=== PATIENT | female | born 1940 | race Caucasian/White ===

== ENCOUNTER 2024-09-23 18:04 | Inpatient (IN) | payer OTHER, SELFPAY ==
[2024-09-23] VITALS (42 sets, daily range): BP systolic 66–124; BP diastolic 54–95; BMI 25.7
--- NOTE | 2024-09-23 13:00 | W.PN.CARDCBS ---
Today's Communication / Plan
-
Transfer from [facility] for C +/- RHC
Impression / Plan
-
This is a summary, see scanned cardiology consultation
PCP: Chantel Montelongo DO
CDY: Jimmy Meraz DO (new to pt)
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
Emergency room 09/19/2024 for evaluation after a mechanical fall while walking her dog. � LOC. She was down outside for approx. 3 hrs and upon arrival her Temp was 94. She was found to have a L intra-articular distal radius fracture and underwent
ORIF of the L radius on 09/20/2024. EKG on admission showed ST with PVC�s. She became hypotensive 09/21 with BP�s 88/42 and IVF bolus was given. Since then she has received 2L of LR�s and remains hypotensive with BP�s as low as 65/49. On 09/23 she
was noted to be in respiratory distress with c/o chest tightness. Her 02 sat was 79% and supplemental 02 was applied with improvement to 95%. Audible wheezing was noted and she c/p progressive SOB over the past several days. 20mg IV Lasix was given.
Metoprolol was held this am for low BP�s. Stat CXR showed b/l pulmonary congestion. Repeat EKG showed NSR with PAC�s and lateral ST depressions. Trp 609, 790 with CPK�s 461, 574. Echo this am with New wall motion abnormalities and an LVEF of 35% .
She was started on Heparin and this am is CP free
Impression:
NSTEMI
post ORIF L radius 09/20/24 after mechanical fall
Ischemic cardiomyopathy EF 35%
bilateral carotid artery stenosis
Right Subclavian steal syndrome
CVA
HTN
LLE BKA
PVD h/o stent
Plan:
Transferred today for [facility], admit IVU post
Chest pain last night with elevated troponin still rising 981, will check troponin on arrival
Echo with LV dysfunction and new WMA
Holding bp meds d/t hypotension, holding losartan, new to BB when able
continue atorvastatin 40mg daily
Progress Note - Talent Development Coordinator
Subjective
Date of Service: September 23, 2024
Denies cp, mild dyspnea
Home Medications
Medication Instructions Recorded Confirmed
aspirin 81 mg chewable tablet 81 mg PO DAILY #0 tabs 12/22/14 09/19/24
amlodipine 5 mg tablet 5 mg PO DAILY 09/19/24 09/19/24
ascorbic acid (vitamin C) 500 mg 500 mg PO DAILY 09/19/24 09/19/24
tablet (Vitamin C)
atorvastatin 40 mg tablet 40 mg PO DAILY 09/19/24 09/19/24
cholecalciferol (vitamin D3) 50 50 mcg PO DAILY 09/19/24 09/19/24
mcg (2,000 unit) tablet (Vitamin
D3)
cilostazol 100 mg tablet 100 mg PO BID 09/19/24 09/19/24
epinephrine 0.3 mg/0.3 mL 0.3 mg IM Q10M PRN Allergic 09/19/24 09/19/24
injection, auto-injector (EpiPen) Reaction
latanoprost 0.005 % eye drops 1 drp Left eye HS 09/19/24 09/19/24
losartan 25 mg tablet 25 mg PO DAILY 09/19/24 09/19/24
omega 8-ere-cep-fish oil 1,200 mg 1 cap PO DAILY 09/19/24 09/19/24
(144 mg-216 mg) capsule (Fish Oil)
timolol 0.5 % eye drops 1 drp Right eye BID 09/19/24 09/19/24
Objective
Labs:
Laboratory Last Values
WBC 11.5 10^3/uL (4.5-11.0) H 09/23/24 01:27
RBC 3.19 10^6/uL (4.20-5.40) L 09/23/24:
Hgb 9.8 gm/dL (11.3-15.0) L 09/23/24:27
Hct 30.5 % (34.0-44.0) L 09/23/24:
MCV 96 fl (82-98) 09/23/24:
RDW 14.5 % (11.0-15.0) 09/23/24 01:
Plt Count 203 10^3/uL (150-400) 09/23/24 01:
Neut % (Auto) 79 % (40-78) H 09/23/24:27
Lymph % (Auto) 14 % (21-49) L 09/23/24 01:27
Sullivan % (Auto) 6 % (0-10) 09/23/24:
Eos % (Auto) 1 % (0-4) 09/23/24 01:27
Baso % (Auto) 0 % (0-1) 09/23/24 01:
Neut # (Auto) 9.1 10^3/uL (2.2-8.0) H 09/23/24 01:27
Lymph # (Auto) 1.6 10^3/uL (1.0-4.0) 09/23/24 01:
Sullivan # (Auto) 0.7 10^3/uL (0.0-1.0) 09/23/24 01:27
Eos # (Auto) 0.1 10^3/uL (0.0-0.4) 09/23/24 01:
Baso # (Auto) 0.0 10^3/uL (0.0-0.1) 09/23/24:27
PT 15.6 SECONDS (11.5-14.4) H 09/23/24 05:00
INR 1.23 INR 09/23/24 05:00
APTT 182 SECONDS (23-37) H 09/23/24 05:00
Sodium 141 mmol/L (136-145) 09/23/24 01:27
Potassium 3.7 mmol/L (3.5-5.1) 09/23/24 01:27
Chloride 109 mmol/L (98-107) H 09/23/24 01:27
Carbon Dioxide 17.8 mmol/L (22.0-29.0) L 09/23/24:
Anion Gap 14 (7-16) 09/23/24 01:27
BUN 23 mg/dL (8-23) 09/23/24 01:27
Creatinine 1.01 mg/dL (0.50-0.90) H 09/23/24:
GFR Calculation 55 (Over 90) L 09/23/24 01:27
BUN/Creatinine Ratio 22.5 (7.0-25.0) 09/23/24 01:27
POC Glucometer 171 mg/dL (70 - 110) H 09/22/24 10:02
Fasting Glucose 122 mg/dL (70-110) H 09/23/24 01:27
Lactic Acid 1.2 mmol/L (0.5-2.0) 09/19/24 15:40
Calcium 8.3 mg/dL (8.8-10.2) L 09/23/24 01:27
Phosphorus 2.7 mg/dL (2.5-4.5) 09/22/24 06:26
Magnesium 1.9 mg/dL (1.6-2.4) 09/22/24 06:26
Total Creatine Kinase 759 U/L (20-180) H 09/23/24 11:19
CK-MB (CK-2) 101.0 ng/mL (0.0-5.0) H 09/23/24 11:19
CK-MB (CK-2) Rel Index 13.3 ng/100IU (0-2.8) H 09/23/24 11:19
Troponin T 5th Gen ng/L 790 ng/L (0-14) H* 09/23/24 05:00
NT-Pro-B Natriuret Pep 20355 pg/mL (0-300) H 09/23/24 09:59
25-OH Vitamin D Total 111.0 ng/mL (>30) 09/19/24 15:40
Ethyl Alcohol < 0.01 g/dL (<0.01) 09/19/24 15:40
Blood Type AB Positive 09/19/24 15:40
Antibody Screen Negative 09/19/24 15:40
Physical Exam
Physical Exam
Mild distress, AOx3, b/l ocular ecchymosis and abrasions to nose
S1, S2, irreg
bibasilar crackles, mildly labored, no wheeze
SNTND bsx4
No LE edema, LLL BKA
[2024-09-23 14:53] LABS: ACT-LR - POC 128 Seconds (116-155)
[2024-09-23 15:52] LABS: ACT-LR - POC 236 Seconds (116-155)
[2024-09-23 16:00] LABS: ACT-LR - POC 224 Seconds (116-155)
[2024-09-23 16:09] LABS: B.E. -13.3 mmol/L; O2 Saturation % 95.2 % (94-98); PCO2 47 mmHg (32-35); PO2 82 mmHg (83-108)
[2024-09-23 16:10] LABS: ACT-LR - POC 318 Seconds (116-155)
[2024-09-23 16:11] LABS: HCO3 15.3 mmol/L (21-28); pH 7.12 (7.35-7.45)
[2024-09-23 16:29] LABS: ACT-LR - POC 282 Seconds (116-155)
--- NOTE | 2024-09-23 16:39 | HPS.HSE ---
Family Physician
-
Family Physician: Chantel Roe
Chief Complaint
-
chest tightness
History of Present Illness
All of history from records, cardiology report, patient intubated sedated at time of evaluation.
84F former smoker LLE BKA CVA HTN asymptomatic carotid stenosis b/l, subclavian steal syndrome, vertebral artery aneurysm transferred from [facility] due to concern NSTEMI acute HFrEF. Originally patient was admitted to [place] following
mechanical fall resulting in Left Radial Fracture. S/P ORIF patient developed dyspnea chest tightness troponin elevation concerning for NSTEMI with associate ECHO noting reduced EF. Transferred here for cath, patient was noted to have severe CAD,
developed ventricular fibrillation and ultimately required intubation for airway protection. Stent was placed in left main in process. Patient subsequently admitted to CVICU on amio and nitro gtt with impella. NGT tube was complicated with
epistaxis so OG tube was placed instead.
Medical History
Past Medical History
Past Medical History: Reports Other (as above)
Past Surgical History: Reports Other (as above)
Social History
Tobacco: Former Smoker
Personal:
Family History
Family History: Unable to Obtain
Allergies / Home Medications
Allergies reflects when Allergies were last updated in [facility].
Home Medications with original date entered in [facility]
Allergy/Medication List:
Allergies
Allergy/AdvReac Type Severity Reaction Status Date / Time
bee venom protein (honey bee) Allergy Unknown Verified 09/23/24 14:06
Home Medications
amlodipine 5 mg tablet 5 mg PO DAILY 09/23/24
ascorbic acid (vitamin C) 500 mg capsule 500 mg PO DAILY 09/23/24
aspirin 81 mg tablet,delayed release 81 mg PO DAILY 09/23/24
atorvastatin 40 mg tablet 40 mg PO DAILY 09/23/24
cholecalciferol (vitamin D3) 50 mcg (2,000 unit) tablet 50 mcg PO DAILY 09/23/24
cilostazol 100 mg tablet 100 mg PO BID 09/23/24
epinephrine 0.3 mg/0.3 mL injection, auto-injector (EpiPen) 0.3 mg IM Q5-15M PRN allergic reaction 09/23/24
latanoprost (PF) 0.005 % eye drops in a dropperette 1 drp ophthalmic (eye) HS 09/23/24
losartan 25 mg tablet 25 mg PO DAILY 09/23/24
omega 0-zqi-zjd-fish oil 900 mg-1,400 mg capsule,delayed release 1 cap PO DAILY 09/23/24
timolol maleate (PF) 0.5 % eye drops in a dropperette 1 drp ophthalmic (eye) Q12H 09/23/24
Review of Systems
-
Unable to obtain full review of systems at this time due to: Patient Non-verbal
Physical Exam
Vital Signs
Vital Signs
Temp Pulse Resp BP Pulse Ox
97.3 F 102 20 112/69 92
09/23/24 14:17 09/23/24 14:17 09/23/24 14:17 09/23/24 14:17 09/23/24 14:17
Physical Exam
General: Other (as below)
Laboratory Results
-
Laboratory Results
APTT Cancelled 09/23/24 16:00
pH 7.12 (7.35-7.45) L* 09/23/24 Unknown
pCO2 47 mmHg (32-35) H 09/23/24 Unknown
pO2 82 mmHg (83-108) L 09/23/24 Unknown
HCO3 15.3 mmol/L (21-28) L* 09/23/24 Unknown
Troponin I 16.300 ng/ml H* 09/23/24 14:37
Impression/Plan
-
Physical Exam
General: sedated intubated
HEENT: Significant Bruising Ecchymosis around face like correlating with history fall, residual epistaxis noted, intubated, OG tube in place
Pulm: Clear to auscultation b/l
Cardio: sinus tachy
Abd/pelvis: soft bowel sounds present, right impella in place, left Femoral Line and Arterial line in place
Ext: s/p left BKA, cold right foot, very faint dorsal pedis pulse on palpation
Neuro: Sedated
IMPRESSION:
84F former smoker LLE BKA CVA HTN asymptomatic carotid stenosis b/l, subclavian steal syndrome, vertebral artery aneurysm transferred from [facility] due to concern NSTEMI acute HFrEF. Originally patient was admitted to [place] following
mechanical fall resulting in Left Radial Fracture. S/P ORIF patient developed dyspnea chest tightness troponin elevation concerning for NSTEMI with associate ECHO noting reduced EF. Transferred here for cath, patient was noted to have severe CAD,
developed ventricular fibrillation and ultimately required intubation for airway protection. Stent was placed in left main in process. Patient subsequently admitted to CVICU on amio and nitro gtt with impella. NGT tube was complicated with
epistaxis so OG tube was placed instead.
PLAN:
#NSTEMI
#Multivessal CAD
#Left Main Disease s/p stent placement
#Vfib
#HTN
#Shock suspect cardiogenic
#Acute HFrEF
CVICU admit
briefly treated with amio and nitro in lab head
Impella as per cardio
Levophed prn MAP>65
Trend Troponin to peak
asa plavix
cardio eval appreciated
daily weights I/O
Villavicencio for accurate I/O's
diuresis as necessary per cardio
#Ventilator dependent respiratory failure
Vent setting as per CVICU
follow up ABG
CXR
#Lactic acidosis
likely 2/2 shock as above
trend
#Anemia
monitor H&H
transfuse goal >=8 d/t cardiac hx
#Epistaxis
ENT eval requested
#Hx HTN
hold home antihypertensive d/t hypotension/shock as above
#Hyperglycemia
check A1c
low dose sliding scale for now
HX CVA
Lt BKA
asymptomatic carotid stenosis b/l
subclavian steal syndrome
Full Code
Total Critical Care Time__60___ minutes. I was immediately available to the patient and staff. I personally examined, reviewed labs, diagnostic images/reports, interpretations, treatment plans, discussed patient care with other providers and
Daughter Jayna GEIGER (patient is unable to make decisions at this time), entered orders as appropriate and documented the medical record.
[2024-09-23 16:40] LABS: % Basophils 0.2 % (0-2); % Eosinophils 0.4 % (0-6); % Immature Granulocytes 1.4 % (0-0.5); % Lymphocytes 27.3 % (20.5-51.1); % Monocytes 4.1 % (1.7-9.3); % Neutrophils 66.6 % (42.2-75.2); Absolute Eosinophils 0.1 10^3/uL (0-0.7); Absolute Immature Granulocytes 0.2 10^3/uL (0-0.05); Absolute Lymphocytes 3.2 10^3/uL (1.2-3.4); Absolute Monocytes 0.5 10^3/uL (0.1-0.6); Absolute Neutrophils 7.7 10^3/uL (1.4-6.5); Hematocrit 25.3 % (37.0-47.0); Hemoglobin 8.4 g/dL (12.0-16.0); Mean Corp Hgb Conc. 33.2 g/dL (33.0-37.0); Mean Corpuscular Hgb 32.1 pg (27.0-31.0); Mean Corpuscular Volume 96.6 fL (81.0-99.0); Mean Platelet Volume 10.9 fL (7.4-10.4); Nucleated Red Blood Cells % 0 %; Platelet Count 196 10^3/uL (130-400); Red Blood Cell Count 2.62 10^6/uL (4.20-5.40); Red Cell Dist. Width 14.6 % (11.5-14.5); White Blood Cell Count 11.6 10^3/uL (4.8-10.8)
[2024-09-23 16:49] LABS: INR 1.41; PT 17.5 Sec (11.4-14.6)
[2024-09-23 16:59] LABS: ACT-LR - POC 269 Seconds (116-155)
[2024-09-23 17:06] LABS: ALT (SGPT) 80 U/L (0-35); AST (SGOT) 259 U/L (14-36); Albumin 2.5 g/dl (3.5-5.0); Alkaline Phosphatase 68 U/L (38-126); Blood Urea Nitrogen 22 mg/dl (7-17); Calcium 8.7 mg/dl (8.4-10.2); Carbon Dioxide 24 mmol/L (22-30); Chloride 108 mmol/L (98-107); Estimated Creatinine Clearance 36 ml/min; Glucose 292 mg/dl (70-99); Potassium 3.1 mmol/L (3.5-5.1); Sodium 146 mmol/L (135-145); Total Protein 4.6 g/dl (6.3-8.2); eGFR 49.86
[2024-09-23 17:29] LABS: B.E. -0.9 mmol/L; HCO3 21.8 mmol/L (21-28); PCO2 30 mmHg (32-35); pH 7.47 (7.35-7.45)
[2024-09-23 17:32] LABS: PO2 31 mmHg (83-108)
--- NOTE | 2024-09-23 18:09 | ITS.CL.ANGIO ---
Hearing Impaired Itinerant Teacher - Angioplasty
Angioplasty
Procedure Report:
RIGHT AND LEFT HEART CATHETERIZATION
Date of Procedure: September 23, 2024
Primary Care Physician: Dr. Chantel Roe
Primary Amortization Clerk: Dr. iJmmy Meraz
Procedures performed:
1: Coronary angiography
2: Left ventricular hemodynamic assess
3: Right heart catheterization
4: Impella left ventricular assist device placement
5: Percutaneous coronary intervention of left main with placement of a 4.0 x 12 mm Husam drug-eluting stent postdilated high-pressure with a 4.5 mm diameter noncompliant balloon
INDICATION: The patient is a 84-year-old woman with a past medical history of severe peripheral arterial disease status post left BKA over 10 years ago, history of right subclavian artery steal syndrome, possible prior stroke, hypertension, and
hyperlipidemia who had a trip fall with left forearm fracture and facial bone injury. She developed chest pain associated with ischemic EKG changes last night and ruled in for non-ST elevation NV. Echocardiography showed LV ejection fraction of 35
to 40% with regional wall motion abnormality in the LAD territory. There was moderate mitral regurgitation by color-flow Doppler imaging noted. In light of her newly diagnosed cardiomyopathy with chest pain symptoms and rising cardiac enzymes she
was transferred to [facility] for urgent cardiac catheterization. She reports being chest pain-free since last night. She is requiring oxygen by nasal cannula at 4 L.
ACCESS: The patient was prepped and draped in usual sterile fashion. A 6 Nepalese sheath was placed in the right radial artery using the Seldinger over the wire technique. A 6 Nepalese sheath was then placed in the right common femoral vein using the
same technique and ultrasound guidance. I was unable to advance a wire from the subclavian artery into the aorta. This suggests occlusion. I then turned to right common femoral access. Initially a 4 Nepalese arterial sheath was placed using a
micropuncture kit and ultrasound guidance. Angiography was performed in several views which revealed the common femoral artery to be patent with a proximal SFA occlusion and a widely patent profunda artery.
HEMODYNAMIC FINDINGS (mmHg):
RA(a,v,m): 18, 14, 13
RV(s/d,EDP): 55/11, 20
PA(s/d/m): 50/31, 35
PCWP(a,v,m): 24, 28, 24
LV(s/d,EDP): 98/28, 44
Ao(s/d,m): 98/54, 69
Oxygen Saturations (mg/dl):
PA: 58% on 4 L of oxygen by nasal cannula
LV: 93% on 4 L of oxygen by nasal cannula
Cardiac Output/Index (l/min / l/min/m2):
Estimated Yolanda Method: 4.3 /2.4
VALVE HEMODYNAMICS:
No significant aortic or mitral valve stenosis.
ANGIOGRAPHIC FINDINGS:
Single-plane Left Ventriculography in OLIVAREZ Projection: Not done.
Coronary Angiography:
Dominance: Right
Left Main: Initial angiography was performed with a 4 Nepalese JL 3.5 diagnostic catheter. This resulted in intense pressure dampening with immediate ventricularization of pressure and ultimately dropping pressure into the low 50s. I performed 3
injections and disengaged after each injection in light of the tenuous hemodynamics. The left main appears to have a 80 to 90% true ostial stenosis. The remainder of the body of the vessel appears widely patent.
Left Anterior Descending: The left anterior descending artery is a medium caliber vessel that gives rise to 1 major diagonal branch. The LAD is moderately calcified but appears to be free of focal obstructive disease. There is SERGIO-3 flow in the
LAD and the major diagonal branch.
Left Circumflex: The left circumflex is a medium caliber nondominant system. There is a high OM which courses in a ramus distribution which appears patent with SERGIO-3 flow. After the takeoff of this vessel there is 1 major diagonal branch which
has moderate nonobstructive luminal irregularities with normal distal flow. Vascular overlapping calcification makes accurate angio a Grafix assessment difficult but I do not believe there is obstructive disease in this proximal circumflex system.
Right Coronary: The right coronary artery is a medium caliber dominant vessel that is widely patent and gives rise to a relatively small posterior descending artery and larger posterior left ventricular branch. These vessels have SERGIO-3 flow. Only
a single view IRANIAN projection of this vessel was obtained as the patient was becoming hemodynamically unstable.
Clinical course:
1: As I was urgently consulting CT surgery for critical left main disease and a hemodynamically compromised patient with a markedly elevated LVEDP, she became progressively hypotensive and unstable hemodynamically. Ultimately she required
epinephrine boluses and drip along with emergency intubation by the anesthesia staff and titration of pressors. In light of this hemodynamic instability, I felt the only way to save her life was to place a left ventricular support device.
Obviously with her peripheral arterial disease I was concerned about the suitability of her iliofemoral anatomy especially given her known SFA occlusion. A Impella CP was advanced into the left ventricle and put on maximum assist with good flow.
Despite this she was electrically unstable and ultimately had an episode of ventricular fibrillation requiring electrical defibrillation. She had brief CPR during a period of prolonged hypotension but that was ultimately successfully treated with
IV epinephrine bolus. amiodarone bolus and drip was given. Dr. River from CT surgery felt she was not a surgical candidate and at this point I chose to proceed with left main stenting.
Percutaneous coronary intervention of the left main: The patient was pretreated with aspirin. Unfractionated heparin was given. Single access through the Impella sheath was performed using a 7 Nepalese long introducer sheath. A 6 Nepalese JL 4
guiding catheter was used to engage the left main nonselectively. A Hi-Torque floppy wire was advanced across the ostial lesion and positioned in the distal LAD. Predilation was performed with a 2.5 x 12 mm noncompliant balloon at high pressure.
Next a 4.0 x 12 mm Husam stent was deployed at 14 nagi. The stent was postdilated with the ostium flared using a 4.5 mm diameter noncompliant balloon inflated to 16 nagi.
FINAL RESULT: 0% in-stent residual stenosis with an excellent angiographic result and SERGIO-3 flow in all distal vessels.
Clinical Course:
2. After successful left main stenting her blood pressure came up and ultimately all pressors were turned off. She was in fact hypertensive and IV nitroglycerin was given in an effort to facilitate diuresis as well as treat hypertension. Repeat
right heart cath numbers showed persistently elevated pulmonary capillary wedge pressure at 36 mmHg and ongoing arterial oxygen desaturation. Imaging through the 7 Nepalese sheath in the peel-away Impella sheath showed flow around the Impella itself
suggesting that there was not critical limb obstruction by the Impella. Repeat oxygen saturations were under 88% despite 100% FiO2 and increasing PEEP. In light of this, I elected to leave the Impella in place. I aggressively titrated up
nitroglycerin and continued critical care with attempts to correct pH using IV bicarbonate and vent changes. She was also exquisitely sensitive to sedation and ultimately ended up needing Levophed pressor support prior to leaving the lab. Attempts
to place an NG tube to deliver clopidogrel were unsuccessful and resulted in more nasopharyngeal bleeding. Ultimately a oropharyngeal tube was placed and 600 mg of clopidogrel was given through the tube. Echocardiography was performed on the table
in the [employer] which revealed no pericardial effusion and good RV function with persistent LV dysfunction.
Final HEMODYNAMIC FINDINGS (mmHg):
PA(s/d/m): 35/26,29
PCWP(a,v,m): 18,18,17
Ao(s/d,m): 93/68, 77
Fluoroscopy Time (min): 21.4
Radiation Dose (mGy): 1131
DAP (Gy.cm2): 96
Closure device: None. A TR band was applied for hemostasis at the right wrist. The femoral vein groin sheath was sutured in place and being utilized for central delivery of vasopressors. The Impella CP was sutured in place in the right common
femoral artery.
Complications: None.
ASSESSMENT:
1: Successful left main stenting with Impella CP hemodynamic support in the setting of cardiogenic shock, respiratory failure and cardiac arrest with ventricular fibrillation requiring defibrillation and pressor support.
2: Ongoing high oxygen demand. I suspect this is all pulmonary edema related to cardiogenic shock however there may be some component of aspiration. The RV looked okay on limited echo done in the [employer] so I do not suspect pulmonary embolism is
playing a role.
CONCLUSIONS and RECOMMENDATIONS:
1: Continue aggressive ICU supportive care. Hopefully with vent support and Impella support overnight we can start weaning the Impella in the morning. Continue DAPT with aspirin and Plavix.
Patrice Carty M.D.
Copy to: Dr. Chantel Roe
[2024-09-23] MEDS: VERSED 1 MG IV ×2 (18:15→20:40)
[2024-09-23] MEDS: SUBLIMAZE 70 MCG IV (18:16)
[2024-09-23] MEDS: SUBLIMAZE 100 IV (18:17)
--- NOTE | 2024-09-23 18:38 | PTCARENOTE ---
received pt from the [facility] into 2263, sinus tachycardia on tele w HR 120, bp 79-102/60's, + doppler DP on the right, impella right femoral P level auto. Right femoral site w dressing intact. TR band right radial cath site w 9ml air. PIV x2 right arm
flush easily. Pt awakens spontaneously, not following commands at this time, bilateral pupils equally reactive to light. Ecchymosis and multiple scabbed areas to face s/p pre hospital fall. Left BKA. Cast to left arm. OGT clamped s/p plavix
administration in CCL. Villavicencio placed on arrival to CV ICU w 350ml yellow urine. #8 ETT secured at 24cm at the right lip, VENT SETTINGS AC 20/500/+5/100%. CT [place] at bedside attempting arterial line.
DRIPS: Propofol 20mcg/kg/min
Fentanyl 50mcg/hr
Levophed 25mcg/min
K rider
[2024-09-23] MEDS: KCL 100 IV (19:12)
[2024-09-23] MEDS: SUBLIMAZE 50 MCG IV (19:42)
--- NOTE | 2024-09-23 19:56 | W.PN.ANESINT ---
Anesthesia Intubation Note
- Intubation Note
Intubation Note:
Diagnosis: CAD
Blade: MAC 4 glidescope
Tube Size: 8
Depth: 23
Side Taped: right
Drugs Used: propofol 100mg / zemuron 50mg after intubation
Grade View: I
EtCO2 Present: yes
Atraumatic: yes
Attempts: 1
Insertion Start and Stop Time:
SaO2 Pre:
SaO2 Post:
Glidescope Used: yes
Other Airway Adjustments:
Pre-Oxygenated: yes
Portable Chest X-Ray: yes
RSI: no
Suctioned: no
Bilateral Breath Sounds Confirmed: yes
Vent Settings:
Settings per _X__Attending Physician
--- NOTE | 2024-09-23 20:00 | PTCARENOTE ---
received pt from previous rn. pt intubated and sedated on propofol and fentanyl. ETT 8.0/24cm at lip Vent settings 500/20/100%/5. OG in place and clamped, 32 at the lip. sinus tachycardia per tele monitor, rojo catheter draining clear yellow urine,
R fem Impella CP at P-7, r femoral venous sheath, PIVx2 intact, R leg immobilizer placed, see worklist for complete nursing assessment, interventions, VS, I&Os.
[2024-09-23] MEDS: CALCIUM CHLORIDE 10% SYRINGE 500 MG IV (20:43)
--- NOTE | 2024-09-23 21:45 | PTCARENOTE ---
L fem A-line and L fem triple lumen placed by Dr. Carty at bedside w/ assistance by CTPA Weston Clements,
[2024-09-23 21:51] LABS: Glucose - Point of Care 193 mg/dl (70-99)
[2024-09-23 22:03] LABS: B.E. 3.4 mmol/L; HCO3 24.9 mmol/L (21-28); PCO2 26 mmHg (32-35); PO2 132 mmHg (83-108); pH 7.59 (7.35-7.45)
[2024-09-23 22:07] LABS: Hematocrit 26.3 % (37.0-47.0); Hemoglobin 8.7 g/dL (12.0-16.0); Mean Corp Hgb Conc. 33.1 g/dL (33.0-37.0); Mean Corpuscular Hgb 31.8 pg (27.0-31.0); Mean Platelet Volume 10.6 fL (7.4-10.4); Platelet Count 224 10^3/uL (130-400); Red Blood Cell Count 2.74 10^6/uL (4.20-5.40); Red Cell Dist. Width 14.6 % (11.5-14.5); White Blood Cell Count 16.9 10^3/uL (4.8-10.8)
[2024-09-23 22:16] LABS: INR 1.17; Lactic Acid 2.4 mmol/L (0.7-2.0); PT 15.2 Sec (11.4-14.6)
[2024-09-23 22:17] LABS: Fibrinogen 454 MG/DL (199-459)
[2024-09-23 22:18] LABS: APTT 70.9 Sec (23.4-35.0)
[2024-09-23 22:27] LABS: ALT (SGPT) 128 U/L (0-35); AST (SGOT) 363 U/L (14-36); Albumin 2.7 g/dl (3.5-5.0); Alkaline Phosphatase 93 U/L (38-126); Blood Urea Nitrogen 28 mg/dl (7-17); Carbon Dioxide 28 mmol/L (22-30); Chloride 108 mmol/L (98-107); D-Dimer 3.48 ug/mlFEU (0.00-0.50); Estimated Creatinine Clearance 33 ml/min; Glucose 220 mg/dl (70-99); Potassium 3.8 mmol/L (3.5-5.1); Sodium 142 mmol/L (135-145); Total Bilirubin 2.3 mg/dl (0.2-1.3); Total Protein 4.7 g/dl (6.3-8.2); eGFR 44.91
[2024-09-23 22:37] LABS: Magnesium 1.8 mg/dl (1.6-2.3)
[2024-09-23] MEDS: KCL 50 IV (23:01)
[2024-09-23 23:03] LABS: LDH 1140 U/L (120-246)
[2024-09-23] MEDS: SODIUM BICARBONATE 1025 MEQ IV (23:23)
[2024-09-23] MEDS: MAGNESIUM SULFATE 102 GRAMS IV (23:46)
[2024-09-23] MEDS: LEVOPHED 250 IV (23:58)
[2024-09-24] VITALS (52 sets, daily range): BP systolic 70–153; BP diastolic 48–91; BMI 26.9
[2024-09-24 00:12] LABS: ACT-LR - POC 129 Seconds (116-155)
--- NOTE | 2024-09-24 00:28 | PTCARENOTE ---
no acute changes, pt sedate and intubated on 16 of levo, 20 pro, fent 50, blood transfusion infusing, VSS, NSR per tele monitor
[2024-09-24 00:30] LABS: Glucose - Point of Care 196 mg/dl (70-99)
[2024-09-24 00:34] LABS: B.E. 3.3 mmol/L; HCO3 26.3 mmol/L (21-28); Ionized Calcium 1.26 mMOL/L (1.15-1.33); PCO2 33 mmHg (32-35); PO2 112 mmHg (83-108); pH 7.51 (7.35-7.45)
[2024-09-24] MEDS: CALCIUM GLUCONATE 100 IV (00:48)
[2024-09-24] MEDS: NOVOLOG FLEXPEN-LOW RESISTANCE 1 UNITS SC ×2 (01:00→17:14)
--- NOTE | 2024-09-24 01:04 | W.PN.CARD.SR ---
Sheath/IABP Sheath Removal
Sheath Removal
Right Arterial Radial:
Site appearance prior to sheath removal: Ecchymotic and Oozing
Sheath removed by:: Physician assistant paralegal (Antoine Clements)
Time of sheath removal: 01:05
Time hemostasis achieved: 01:25
Site appearance post sheath removal: Ecchymotic
Method of Hemostasis Post Sheath Removal: Manual Pressure
Dressing dry and intact?: Yes
Comments: Pressure dressing applied following manual pressure
[2024-09-24] MEDS: VERSED 0.5 MG IV ×14 (01:25→12:30)
[2024-09-24] MEDS: DIPRIVAN 100 IV ×3 (01:40→18:19)
[2024-09-24 04:12] LABS: B.E. 3.4 mmol/L; HCO3 25.7 mmol/L (21-28); PCO2 30 mmHg (32-35); PO2 82 mmHg (83-108); pH 7.54 (7.35-7.45)
[2024-09-24 04:33] LABS: Fibrinogen 495 MG/DL (199-459)
[2024-09-24 04:42] LABS: Lactic Acid 1.2 mmol/L (0.7-2.0)
[2024-09-24 04:44] LABS: Calcium 9.1 mg/dl (8.4-10.2); Carbon Dioxide 28 mmol/L (22-30); Chloride 109 mmol/L (98-107); Glucose 133 mg/dl (70-99); HDL Cholesterol 30 mg/dl; LDL Cholesterol, Calculated 35 mg/dl; Potassium 3.6 mmol/L (3.5-5.1); Sodium 143 mmol/L (135-145); Total Cholesterol 85 mg/dl (50-199); Triglyceride 100 mg/dl (10-149); Triglycerides 100 mg/dl (10-149); Very Low Density Lipoprotein 20 mg/dl (0-30)
--- NOTE | 2024-09-24 04:48 | PTCARENOTE ---
Addendum entered by Kristin Coyle RN 09/24/24 05:55:
fent 50*
Original Note:
routine labs and EKG obtained, VSS, NSR per tele monitor
levo 3
fentanyl 5
propofol 20
PRN versed given for agitation
[2024-09-24 04:50] LABS: % Basophils 0.1 % (0-2); % Eosinophils 0.1 % (0-6); % Immature Granulocytes 0.6 % (0-0.5); % Lymphocytes 12.6 % (20.5-51.1); % Monocytes 5.4 % (1.7-9.3); % Neutrophils 81.2 % (42.2-75.2); Absolute Immature Granulocytes 0.1 10^3/uL (0-0.05); Absolute Lymphocytes 1.5 10^3/uL (1.2-3.4); Absolute Monocytes 0.7 10^3/uL (0.1-0.6); Absolute Neutrophils 9.8 10^3/uL (1.4-6.5); Hematocrit 27.9 % (37.0-47.0); Hemoglobin 9.4 g/dL (12.0-16.0); Mean Corp Hgb Conc. 33.7 g/dL (33.0-37.0); Mean Corpuscular Hgb 31.8 pg (27.0-31.0); Mean Corpuscular Volume 94.3 fL (81.0-99.0); Mean Platelet Volume 10.6 fL (7.4-10.4); Nucleated Red Blood Cells % 0 %; Platelet Count 161 10^3/uL (130-400); Red Blood Cell Count 2.96 10^6/uL (4.20-5.40); Red Cell Dist. Width 14.9 % (11.5-14.5)
--- NOTE | 2024-09-24 04:50 | DOWNTIME ---
There was a [email or web address] Client Upholstery Covers Inspector Downtime on 09/24/2024 from 0100 to 09/24/2024 at 0350. Downtime documentation of patient's care, including medication administrations, has been reconciled in the electronic record per guidelines. Refer to the
patient's paper chart under the miscellaneous tab to see printed paper medication records and downtime forms.
[2024-09-24 04:54] LABS: Blood Urea Nitrogen 28 mg/dl (7-17); Estimated Creatinine Clearance 36 ml/min; eGFR 49.86
[2024-09-24] MEDS: KCL 100 IV (05:07)
[2024-09-24 05:29] LABS: LDH 1399 U/L (120-246)
[2024-09-24 05:38] LABS: Glucose - Point of Care 137 mg/dl (70-99)
[2024-09-24 05:43] LABS: B.E. 2.6 mmol/L; HCO3 25.9 mmol/L (21-28); Ionized Calcium 1.29 mMOL/L (1.15-1.33); O2 Saturation % 98.9 % (94-98); PCO2 34 mmHg (32-35); PO2 87 mmHg (83-108); pH 7.49 (7.35-7.45)
[2024-09-24] MEDS: NOVOLOG FLEXPEN-LOW RESISTANCE SC ×2 (05:47→12:24)
[2024-09-24 06:23] LABS: NT-proBNP 14500 pg/ml
--- NOTE | 2024-09-24 07:09 | CON.INTV ---
Consultation
Consultation Request
Date/Time Consultation Requested: 09/23/24
Date/Time Consultation Performed: 09/24/24
Performing Provider: Destini
Reason for Consultation: Post arrest
Medical History
-
History of Present Illness:
Patient is an 84-year-old female with previous history of CVA, hypertension, carotid stenosis, subclavian steal syndrome, vertebral artery aneurysm, former smoker transferred from [facility] following admission for mechanical fall resulting
in left radial fracture and facial contusions with epistaxis. Underwent ORIF and subsequently developed shortness of breath, chest tightness, troponin elevation was noted. She had been ruled in for NSTEMI and had comorbid acute heart failure with
reduced ejection fraction. Transferred to for cardiac catheterization, developed hypotension, and VF arrest with brief CPR and 1 shock given, required intubation and Impella placement in the Case P[employer] Se[employer]. She was deemed nonsurgical by CTS, stent
placed by Dr Carty. Patient is admitted to CVICU on low dose levophed and stabilized.
Past Medical History
Past Medical History: Other (see list below)
Social History
Tobacco: Former Smoker
Alcohol: None
Drug: None
Family History
Family History: Reviewed & Not Pertinent
Allergies / Home Medications
Allergies
Allergy/AdvReac Type Severity Reaction Status Date / Time
bee venom protein (honey bee) Allergy Unknown Verified 09/23/24 14:06
Home Medications
�Medication �Instructions �Recorded �Confirmed �Last Taken �Type
amlodipine 5 mg tablet 5 mg PO DAILY 09/23/24 09/23/24 Unknown History
ascorbic acid (vitamin C) 500 mg 500 mg PO DAILY 09/23/24 09/23/24 Unknown History
capsule
aspirin 81 mg tablet,delayed 81 mg PO DAILY 09/23/24 09/23/24 09/23/24 08:09 History
release
atorvastatin 40 mg tablet 40 mg PO DAILY 09/23/24 09/23/24 Unknown History
cholecalciferol (vitamin D3) 50 50 mcg PO DAILY 09/23/24 09/23/24 Unknown History
mcg (2,000 unit) tablet
cilostazol 100 mg tablet 100 mg PO BID 09/23/24 09/23/24 Unknown History
epinephrine 0.3 mg/0.3 mL 0.3 mg IM Q5-15M PRN allergic 09/23/24 09/23/24 Unknown History
injection, auto-injector (EpiPen) reaction
latanoprost (PF) 0.005 % eye drops 1 drp ophthalmic (eye) HS 09/23/24 09/23/24 Unknown History
in a dropperette
losartan 25 mg tablet 25 mg PO DAILY 09/23/24 09/23/24 Unknown History
omega 1-tho-ena-fish oil 900 1 cap PO DAILY 09/23/24 09/23/24 Unknown History
mg-1,400 mg capsule,delayed release
timolol maleate (PF) 0.5 % eye 1 drp ophthalmic (eye) Q12H 09/23/24 09/23/24 Unknown History
drops in a dropperette
Review of Systems
-
Unable to Obtain full review of systems at this time due to: Acuity and Patient Intubation
Vitals / Labs / Diagnostic Testing
Vital Signs
Temp Pulse Resp BP Pulse Ox
99.4 F 91 14 101/80 95
09/24/24 06:00 09/24/24 06:00 09/24/24 06:00 09/24/24 06:00 09/24/24 06:00
Lab Data
09/24/24 04:02
09/24/24 04:02
Laboratory Results
09/23/24 09/23/24 09/23/24
16:00 17:06 21:49
PT 17.5 H 15.2 H
INR 1.41 1.17
APTT Cancelled 70.9 H
pH 7.47 H 7.59 H
pCO2 30 L 26 L
pO2 31 L* 132 H
HCO3 21.8 24.9
O2 Delivery Level
09/23/24 09/24/24 09/24/24
Unknown 00:29 04:02
PT
INR
APTT
pH 7.12 L* 7.51 H 7.54 H
pCO2 47 H 33 30 L
pO2 82 L 112 H 82 L
HCO3 15.3 L* 26.3 25.7
O2 Delivery Level
09/24/24
05:36
PT
INR
APTT
pH 7.49 H
pCO2 34
pO2 87
HCO3 25.9
O2 Delivery Level
Diagnostic Testing:
Physical Exam
-
HEENT: Normocephalic, Anicteric and Other (ocular contusions, fractured nasal bone, skin lacerations over nose)
Cardiovascular: S1/S2, Regular Rhythm and Other (L BKA)
Respiratory: Rales, Non-Labored Respirations and Other (ETT in place)
GI: Soft, Non Distended, Non Tender and Other (OGT)
Neurology: No Motor Deficits, Other (sedated/intubated, nonverbal) and Other (cast over LUE, RLE dressings for impella)
Skin: Warm and Dry
General: Other (critically ill)
Assessment
-
Patient is an 84-year-old female with previous history of CVA, hypertension, carotid stenosis, subclavian steal syndrome, vertebral artery aneurysm, former smoker transferred from [facility] following admission for mechanical fall resulting
in left radial fracture and facial contusions with epistaxis. Underwent ORIF and subsequently developed shortness of breath, chest tightness, troponin elevation was noted. She had been ruled in for NSTEMI and had comorbid acute heart failure with
reduced ejection fraction. Transferred to for cardiac catheterization, developed hypotension, and VF arrest with brief CPR and 1 shock given, required intubation and Impella placement in the [employer]. She was deemed nonsurgical by CTS, stent
placed by Dr Carty. Patient is admitted to CVICU on low dose levophed and stabilized.
VF arrest s/p shock/CPR
Acute hypoxic respiratory failure s/p intubation
Acute NSTEMI s/p LHC and stent, non surgical candidate
L radial fracture s/p ORIF 09/20/24 after mechanical fall
Ischemic cardiomyopathy EF 35%
Acute HFrEF exacerbation
Anemia, unclear chronic/acute, no baseline
Metabolic acidosis
NELLI creat 1.1-1.2, unknown baseline
Hyperglycemia
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
Bilateral carotid artery stenosis
Right Subclavian steal syndrome
CVA
HTN
LLE BKA
PVD h/o stent
Former smoker, suspect COPD
Plan
Sedation: fent/prop, titrate upwards as needed
Pain/sedation: add on IV pushes, fent
RASS goals: -2 to -3 pending additional procedures
History of CVA in past
Assess MS post sedation holiday
Hemodynamically unstable, requiring pressors.
Requiring pressors: low dose levophed which likely can be titrated to off, likely for sedation
Cardiac history reviewed--extensive, as noted above s/p intervention
ECHO reviewed indicating rEF 30-35%, eventually diuresis when can tolerate
Cards following
Monitor on telemetry
Intubated for hypoxemia, slowly improving
Vent setting reviewed: AC 500/16/60/5+ can try increase PEEP to see if this helps maintain sat
Prior history of lung disease: former smoker, suspect COPD, but no prior PFTs for review
Supplemental O2 as indicated to maintain sats > 89%
CXR/CT reviewed indicating volume overload
ABG(s) reviewed, paO2 remains >80%
Epistaxis with possible nasal fracture, c/s to ENT
NPO, resume diet when able
Likely to need feeds through OGT if cannot extubate
Orthotic Assistant recommendations
Aspiration precautions, HOB > 30 degrees
Speech therapy eval can be considered if at elevated risk
GI prophylaxis if indicated for mechanical ventilation >48 hours, prior history of GERD, stress ulcer formation in the critically ill
NELLI present
Creat at baseline unknown, no history of renal disease
Void trials
Follow urine output, critical I/Os
Replete electrolytes as needed
No signs/symptoms suspicious for infectious etiology at this time
Observe off antibiotics for now
Follow fever trend, WBC count
Lactate elevated on admission, continue to trend until <2
CBC stable, no signs of bleeding/unknown Hb baseline
Some coag likely given fibrinogen, INR ok
DVT prophylaxis as assessed based on risk, including mechanical SCDs
Can transfuse if indicated for Hb <7, plt < 10
INR WNL
No prior h/o diabetes or thyroid disease
Monitor accuchecks PRN/SS coverage if needed
HbA1c pending
We will follow
Diagnostic Data
Chest X-Ray: 09/24/24- Endotracheal tube with tip in trachea above the víctor. No pneumothorax. Left hemidiaphragm is obscured suggesting left lower lobe subsegmental atelectasis and/or small left pleural effusion, unchanged. Pulmonary vascularity
at least top normal.
CT Scan:
Echo: 09/23/24- 1. Limited echocardiogram to assess LV function 2. Left ventricle: Moderately reduced systolic function with a visually estimated ejection fraction of 30-35%. There is akinesis of the anterior and inferoseptum to apex
anteroseptum and inferoseptum from the midportion to the apex 3. No pericardial effusion
LHC 09/23/24- HEMODYNAMIC FINDINGS (mmHg):
RA(a,v,m): 18, 14, 13
RV(s/d,EDP): 55/11, 20
PA(s/d/m): 50/31, 35
PCWP(a,v,m): 24, 28, 24
LV(s/d,EDP): 98/28, 44
Ao(s/d,m): 98/54, 69
Oxygen Saturations (mg/dl):
PA: 58% on 4 L of oxygen by nasal cannula
LV: 93% on 4 L of oxygen by nasal cannula
Cardiac Output/Index (l/min / l/min/m2):
Estimated Yolanda Method: 4.3 /2.4
1: Successful left main stenting with Impella CP hemodynamic support in the setting of cardiogenic shock, respiratory failure and cardiac arrest with ventricular fibrillation requiring defibrillation and pressor support.
PFT's:
Reports and relevant images were personally reviewed.
Critical Care time 75 mins -- The patient is admitted for acute critical illness for the treatment of vital organ failure and/or prevention of further life-threatening conditions. Total care includes time spent in review of history, physical exam,
medications, hemodynamic/ventilator parameters, laboratory data, imaging and discussion with house staff, pharmacy, respiratory therapy, sales engineer, and nursing. Discussed extensively overnight with care team.
--- NOTE | 2024-09-24 07:10 | W.PN.HOSP.TC ---
Today's Communication/Plan
-
wean pressor as tolerated
sedation vent as per ICU
monitor H&H, transfuse if Hgb<8
replete electrolytes goal Mg 2.0 K 4.0
cont DAPT as per Cardio
Assessment / Plan
Assessment / Plan
Physical Exam
General: sedated intubated
HEENT: Significant Bruising Ecchymosis around face like correlating with history fall, residual epistaxis noted, intubated, OG tube in place
Pulm: Clear to auscultation b/l
Cardio: sinus tachy
Abd/pelvis: soft bowel sounds present, right impella in place, left Femoral Line and Arterial line in place
Ext: s/p left BKA, cold right foot, very faint dorsal pedis pulse on palpation
Neuro: Sedated
IMPRESSION:
84F former smoker LLE BKA CVA HTN asymptomatic carotid stenosis b/l, subclavian steal syndrome, vertebral artery aneurysm transferred from [facility] due to concern NSTEMI acute HFrEF. Originally patient was admitted to [place] following
mechanical fall resulting in Left Radial Fracture. S/P ORIF patient developed dyspnea chest tightness troponin elevation concerning for NSTEMI with associate ECHO noting reduced EF. Transferred here for cath, patient was noted to have severe CAD,
developed ventricular fibrillation and ultimately required intubation for airway protection. Stent was placed in left main in process. Patient subsequently admitted to CVICU on amio and nitro gtt with impella. NGT tube was complicated with
epistaxis so OG tube was placed instead.
PLAN:
#NSTEMI
#Multivessal CAD
#Left Main Disease s/p stent placement
#Vfib
#HTN
#Shock suspect cardiogenic
#Acute HFrEF
CVICU admit
briefly treated with amio and nitro in laborer concrete paving
Impella as per cardio
Levophed prn MAP>65
Troponin trended to peak 35.400
asa plavix
cardio eval appreciated
daily weights I/O
Villavicencio for accurate I/O's
diuresis as necessary per cardio
Monitor and replete electrolytes goal Mg 2.0 Potassium 4.0
#Ventilator dependent respiratory failure
Vent setting as per CVICU
follow up ABG
CXR appreciated possible left lower lobe subsegmental atelectasis and/or small left pleural
Steel Erecting Pusher eval appreciated
#Lactic acidosis
likely 2/2 shock as above
resolved
#Anemia
monitor H&H
transfuse goal >=8 d/t cardiac hx
#Epistaxis
ENT eval appreciated
persistent bleeding believed to be due to posterior epistaxis as a result of traumatic NG tube placement.
Right nasal packing applied, tentatively planned for removal in about 3 days.
Empiric protonix gtt for possible GI bleed discontinued, switched to GI ppx IV 40 mg daily
#Mild Leukocytosis
Possibly Stress Reactive
History concerning for aspiration
will cont to monitor
Blood cultures and Empiric Unasyn if patient develops significant fever
#Hx HTN
hold home antihypertensive d/t hypotension/shock as above
#Hyperglycemia
A1c 5.5
cont low dose sliding scale for now, eventually discontinue when sugars consistently well controlled
#Mild NELLI vs CKD 3
monitor renal function
possibly baseline Cr 1.2-1.1
avoid nephrotoxic agents as possible
Significant hx PAD, vascular dz
HX CVA
Lt BKA
asymptomatic carotid stenosis b/l
subclavian steal syndrome
dvt ppx SCD, Heparin in association with Impella use
gi ppx Protonix
Full Code
Total Critical Care Time__50___ minutes. I was immediately available to the patient and staff. I personally examined, reviewed labs, diagnostic images/reports, interpretations, treatment plans, discussed patient care with other providers and
entered orders as appropriate and documented the medical record.
Anticipated Discharge: > 48 hours
Subjective/Interval History
-
Date of Service: September 24, 2024
sedated intubated. Nonetheless responsive to verbal and physical stimuli. Appears restless.
Objective Data
-
Labs:
Laboratory Results
09/23/24 09/24/24 09/24/24
21:49 00:29 04:02
WBC 16.9 H 12.0 H
Hgb 8.7 L 9.4 L
Hct 26.3 L 27.9 L
Plt Count 224 161 D
PT 15.2 H
INR 1.17
APTT 70.9 H
HCO3 24.9 26.3 25.7
Sodium 142 143
Potassium 3.8 3.6
Chloride 108 H 109 H
Carbon Dioxide 28 28
BUN 28 H 28 H
Creatinine 1.2 H 1.1 H
Glucose 220 H 133 H
Calcium 9.0 9.1
Total Bilirubin 2.3 H
AST 363 H
ALT 128 H
Alkaline Phosphatase 93
09/24/24
05:36
WBC
Hgb
Hct
Plt Count
PT
INR
APTT
HCO3 25.9
Sodium
Potassium
Chloride
Carbon Dioxide
BUN
Creatinine
Glucose
Calcium
Total Bilirubin
AST
ALT
Alkaline Phosphatase
Vital Signs:
Vital Signs
Temp Pulse Resp BP Pulse Ox
99.4 F 91 14 101/80 95
09/24/24 06:00 09/24/24 06:00 09/24/24 06:00 09/24/24 06:00 09/24/24 06:00
I&O
09/23/24 09/24/24 09/25/24
06:59 06:59 06:59
Intake Total 1587.7 / 1587.7
Output Total 770 / 770
Balance 817.7 / 817.7
--- NOTE | 2024-09-24 07:30 | PTCARENOTE ---
Dr. Carty at bedside, orders to decrease impella support from P6 to P3. Completed.
[2024-09-24] MEDS: MIRALAX TUBE (07:35)
--- NOTE | 2024-09-24 07:47 | W.PN.UPDATE ---
Update Note
Progress Note Update
Cardiology Update Note:
-Pt did well overnight. Received 1u PRBC. Impella intact @ P7
-Weaned Levophed from 20 to 3-6 mcg/min overnight. Remains on Fentanyl @ 50 and Propofol @ 20-30
-Weaned FIO2 from 100% to 60%. Required frequent suctioning of blood primarily from oral suctioning, not much from ET-tube (mucous plug suctioned)
-Wean off of sedation and Impella
-Hopefully extubate soon
[2024-09-24] MEDS: LEVOPHED 250 IV ×2 (07:54→15:52)
--- NOTE | 2024-09-24 08:00 | PTCARENOTE ---
Assumed care of patient. Walking rounds completed with previous RN. Pt assessed while she was lying in bed. Pt intubated and sedated on propofol and fentanyl gtts. PERRLA 3mm brisk. RAAS -1 to -2. With verbal stimulation, pt opens her eyes, follows
commands to shake head yes & no. Pt became agitated, attempting to sit up, sedation resumed. Noted that all 4 extremities were moving. SR with PACs on tele with rates 80s-90s. BP supported with levophed. Impella at P3 support. Right radial pulse
weakly palpable, confirmed with doppler. Left brachial pulses weakly palpable. Right DP not audible by doppler, Dr. Carty aware and stated that there was no DP pulse prior to cath yesterday. Right PT pulse present with doppler. Left popliteal pulse
present via doppler. No edema noted. Heart tones audible. Intubated with 8.0 ETT 24cm at the lip. POX 95%. Bilateral anterior lungs clear. Bloody oral secretions noted. Mouth care completed. OGT in place at 36cm, air bolus was not auscultated when
checking placement. Dr. Burkett notified. Abdomen soft, round, nontender. Hypoactive BS. Villavicencio catheter intact draining inadequate amounts of yellow urine. Bruising noted to face from outpatient fall. Right groin venous sheath with Impella at
91cm. Left femoral arterial line intact with appropriate waveform-flushed, leveled, & zeroed. Left femoral 3x CVC intact. Right wrist 20g PIV and Right AC 20g PIV intact. See MAR for medication administration. See worklist for complete nursing
assessment. Plan of care reviewed with family.
--- NOTE | 2024-09-24 09:02 | W.PN.CARDCBS ---
Today's Communication / Plan
-
Continue supportive care
Continue Impella
Stop amiodarone and bicarbonate
Continue Levophed, heparin
Consider weaning trial tomorrow if hemodynamically stable
Daughters updated
Impression / Plan
-
This is a summary, see scanned cardiology consultation
PCP: Chantel Montelongo DO
CDY: Jimmy Meraz DO (new to pt)
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
Emergency room 09/19/2024 for evaluation after a mechanical fall while walking her dog. � LOC. She was down outside for approx. 3 hrs and upon arrival her Temp was 94. She was found to have a L intra-articular distal radius fracture and underwent
ORIF of the L radius on 09/20/2024. EKG on admission showed ST with PVC�s. She became hypotensive 09/21 with BP�s 88/42 and IVF bolus was given. Since then she has received 2L of LR�s and remains hypotensive with BP�s as low as 65/49. On 09/23 she
was noted to be in respiratory distress with c/o chest tightness. Her 02 sat was 79% and supplemental 02 was applied with improvement to 95%. Audible wheezing was noted and she c/p progressive SOB over the past several days. 20mg IV Lasix was given.
Metoprolol was held this am for low BP�s. Stat CXR showed b/l pulmonary congestion. Repeat EKG showed NSR with PAC�s and lateral ST depressions. Trp 609, 790 with CPK�s 461, 574. Echo this am with New wall motion abnormalities and an LVEF of 35% .
She was started on Heparin and this am is CP free
Impression:
Cardiogenic shock with VF arrest and critical ostial left main disease status post left main PCI
post ORIF L radius 09/20/24 after mechanical fall
Ischemic cardiomyopathy EF 35%
bilateral carotid artery stenosis
Right Subclavian steal syndrome
CVA
HTN
LLE BKA
PVD h/o stent
Plan:
Remarkably she survived a left main intervention and is now metastable with Impella support.
Now ventilated, sedated, urine output has been adequate though recently dropped, suspect Impella may need to be repositioned.
Appreciate input of hospitalist and rotogravure press operator.
Likely will leave Impella in place today. Dr. Carty to assess.
Continue pressors for now, wean as tolerated.
We will stop amiodarone and bicarbonate
Daughters updated.
Progress Note - Exhibit Designer
Subjective
Date of Service: September 24, 2024:
84-year-old woman admitted with cardiogenic shock related to ostial left main disease, VF arrest in [employer]ator and successful left main stenting, no other high-grade obstructive CAD, now with Impella, epistaxis with NG tube placement.
PMH: PAD, left lower extremity BKA, history of prior peripheral arterial stents, prior stroke, hypertension, bilateral carotid disease, subclavian steal, mechanical fall with loss of consciousness, ORIF for left radial fracture on September 20
Allergies: None to meds
Outpatient cardiac meds: Amlodipine 5, aspirin 81 mg a day, atorvastatin 40 mg a day, cilostazol, losartan 25 a day, timolol current meds: Plavix 75 mg a day, aspirin 81 mg a day, atorvastatin 40 mg a day, IV fentanyl, insulin, norepinephrine,
propofol, pantoprazole
85/57, 113/59, weight is 75.7 kg, urine output 850 mL, facial contusions and lacerations, ventilated, sedated, appears comfortable, lungs are clear, regular rate and rhythm without obvious murmurs, JVD okay, abdomen benign, left BKA, right leg
pulses are diminished but leg does not seem ischemic, Impella in place, neuro, sedated, no edema
White count 12, hemoglobin 9.4, platelets 161, troponin 35.4, was 16.3,
proBNP 14,500, LDL 35, BUN and creatinine 28 and 1.1 as of 4 AM
Chest x-ray mildly hazy, cardiomegaly, Impella in place,
ECG sinus rhythm, nonspecific ST and T changes
Objective
Labs:
Labs
Hgb 9.4 g/dL (12.0-16.0) L 09/24/24 04:02
Hct 27.9 % (37.0-47.0) L 09/24/24 04:02
Plt Count 161 10^3/uL (130-400) D 09/24/24 04:02
PT 15.2 Sec (11.4-14.6) H 09/23/24 21:49
INR 1.17 09/23/24 21:49
APTT 70.9 Sec (23.4-35.0) H 09/23/24 21:49
Sodium 143 mmol/L (135-145) 09/24/24 04:02
Potassium 3.6 mmol/L (3.5-5.1) 09/24/24 04:02
BUN 28 mg/dl (7-17) H 09/24/24 04:02
Creatinine 1.1 mg/dL (0.6-1.0) H 09/24/24 04:02
Glucose 133 mg/dl (70-99) H 09/24/24 04:02
Troponins
09/23/24 09/24/24
14:37 05:36
Troponin I 16.300 H* 35.400 H*
Vital Signs and I&O:
Vital Signs
Temp Pulse Resp BP Pulse Ox
37.7 C 87 14 85/57 95
09/24/24 08:00 09/24/24 08:15 09/24/24 08:15 09/24/24 08:00 09/24/24 08:15
Vital Signs
Temp Pulse Resp BP Pulse Ox
37.7 C 87 14 85/57 95
09/24/24 08:00 09/24/24 08:15 09/24/24 08:15 09/24/24 08:00 09/24/24 08:15
Intake & Output
09/22/24 09/23/24 09/24/24 09/25/24
07:59 07:59 07:59 07:59
Intake Total 1763.8 / 1857.5 93.7 / 93.7
Output Total 790 / 805
Balance 973.8 / 1052.5 78.7 / 78.7
Physical Exam
Physical Exam
See above
[2024-09-24 09:30] LABS: Glycohemoglobin (HgbA1c) 5.5 % (4.0-5.6)
[2024-09-24] MEDS: PROTONIX 100 IV (09:38)
--- NOTE | 2024-09-24 09:45 | PTCARENOTE ---
0845: Impella alarming with positioning alarms, TRISTAN Francis notified. Orders for bedside echo obtained. 0945: Dr. Carty, Dr. TRISTAN Toledo, Impella rep, career and technology education teacher and RN at bedside. Impella repositioned by Dr. Carty to 90cm. Impella dressing
changed.
--- NOTE | 2024-09-24 09:55 | PTCARENOTE ---
Dr. Carty and Dr. TRISTAN Toledo at bedside to re-eval patient. Orders to decrease impella support from P3 to P2. Completed. Informed Dr. Carty of increasing pressor support and decreasing urine output since decreasing Impella to P3 a 0730. Orders for
P2 remain the same. Dr. Carty to re-eval patient ~2 hours for possible impella removal.
--- NOTE | 2024-09-24 10:15 | PTCARENOTE ---
Addendum entered by Darling Natarajan RN 09/24/24 13:02:
Correction: 61cm.
Original Note:
OGT advanced to 65cm. CXR obtained to confirm placement. Awaiting read.
[2024-09-24] MEDS: SUBLIMAZE 100 IV (11:56)
--- NOTE | 2024-09-24 12:00 | PTCARENOTE ---
Pt reassessed. SR with PACs on tele with rates in the 90s. BP supported with levophed. Impella @P2. UO less than 30ml/hr, Dr. Carty notified. POX 94% on AC 40%, 14 500 5. B/l groin sites stable. Neuro status unchanged from prior assessment. Per .
Green Destini, OGT pulled back to 57cm. Asa, lipitor, and Plavix administered. ENT at bedside to complete right nare packing. pt tolerated. Pt's family at bedside.
--- NOTE | 2024-09-24 12:02 | CM ---
Reviewed chart. Met with daughter and son to review discharge plans. Daughter states prior to admission Mrs. Johnson was residing alone in a bi-level home with 12 steps to enter. Prior to admission she was independent with ambulation during the
uma. At Night she uses walker with her night leg to go to the bathroom. She was independent with adl's. She has a walker at home. She was in [facility] in the past for SNF/Rehab. after her leg amputation. She has a prescription plan and uses
[facility]. Will need to see her current functional level to see if she will have any skilled care needs. Her daughter resides in [place], [place] and depending on her functional status she may her take her mother to stay with her for
awhile. Daughter has a one level home. Medical work-up in progress. The discharge plan is to go to her daughter's home verses SNF/Rehab. depending on her functional status when medically stable.
[2024-09-24] MEDS: NSS 500 IV (12:06)
--- NOTE | 2024-09-24 12:18 | W.PN.UPDATE ---
Update Note
Progress Note Update
Progress overnight with dropping O2 needs.
Lactate cleared.
Hb ok post 1 unit RBCs.
Still requiring pressors/sedation.
Tolerating Impella at P2 for several hours. Will remove in lab head.
Will also do RHC to objectively assess filling pressures/hemos.
[2024-09-24 12:21] LABS: B.E. 0.6 mmol/L; O2 Saturation % 98.7 % (94-98); PCO2 33 mmHg (32-35); PO2 84 mmHg (83-108); pH 7.47 (7.35-7.45)
[2024-09-24 12:22] LABS: Glucose - Point of Care 154 mg/dl (70-99)
[2024-09-24 12:22] LABS: Hematocrit 26.7 % (37.0-47.0); Hemoglobin 8.6 g/dL (12.0-16.0); Mean Corp Hgb Conc. 32.2 g/dL (33.0-37.0); Mean Corpuscular Hgb 30.8 pg (27.0-31.0); Mean Corpuscular Volume 95.7 fL (81.0-99.0); Mean Platelet Volume 10.4 fL (7.4-10.4); Platelet Count 157 10^3/uL (130-400); Red Blood Cell Count 2.79 10^6/uL (4.20-5.40); Red Cell Dist. Width 15.7 % (11.5-14.5); White Blood Cell Count 13.2 10^3/uL (4.8-10.8)
[2024-09-24] MEDS: PLAVIX PO (12:27)
[2024-09-24] MEDS: PLAVIX 300 MG TUBE (12:30)
[2024-09-24] MEDS: LIPITOR 40 MG PO (12:30)
[2024-09-24] MEDS: LOW STRENGTH ASPIRIN 81 MG PO (12:30)
--- NOTE | 2024-09-24 12:33 | CON.MD ---
Consultation - Medical
-
Pt seen and consult dictated.
Pt seen for persistent bleeding believed to be due to posterior epistaxis as a result of traumatic NG tube placement.
Right nasal packing applied, will tentatively plan for removal in about 3 days.
--- NOTE | 2024-09-24 12:40 | PTCARENOTE ---
Pt transported to labeling specialist for impella removal.
[2024-09-24 13:23] LABS: Blood Urea Nitrogen 28 mg/dl (7-17); Calcium 8.3 mg/dl (8.4-10.2); Carbon Dioxide 26 mmol/L (22-30); Chloride 110 mmol/L (98-107); Estimated Creatinine Clearance 36 ml/min; Glucose 138 mg/dl (70-99); Magnesium 1.8 mg/dl (1.6-2.3); Phosphorus 3.1 mg/dl (2.5-4.5); Potassium 4.2 mmol/L (3.5-5.1); Sodium 141 mmol/L (135-145); eGFR 49.86
--- NOTE | 2024-09-24 14:30 | PTCARENOTE ---
Pt returned to CVICU from director of cardiac cath lab post impella removal. Pt remains intubated and sedated. POX 90%, Fio2 increased to 60% by RT, POX 93%. SR with PACs with rates 90s-100s. BP supported with levophed. Right radial pulse weakly palpable. Left brachial
pulse weakly palpable. Right PT present via doppler. Left Popliteal weakly palpable. OGT intact. Villavicencio intact, Dr. Carty aware of output. Right groin dressing CDI, area soft. Right femoral venous sheath, Left femoral joe, and left femoral TLC
central line remain intact. No other acute changes from previous assessment.
[2024-09-24] MEDS: MAGNESIUM SULFATE 50 IV (14:35)
[2024-09-24] MEDS: NSS (PRESERVATIVE FREE) 10 ML IV (14:36)
[2024-09-24] MEDS: PROTONIX IV 40 MG IV (14:36)
--- NOTE | 2024-09-24 16:00 | PTCARENOTE ---
Pt reassessed. No acute changes from previous assessment. SR with PACs. BP remains supported with levophed. POX 94% on 60% fio2. Villavicencio output increasing-see I/o. Right groin site remains soft, and +PT pulse via doppler. Family at bedside.
--- NOTE | 2024-09-24 16:17 | ITS.CL.CATH ---
Experience Planning Strategist - Catheterization
Cardiac Catheterization
Procedure Report:
RIGHT HEART CATHETERIZATION and removal of Impella device
Date of Procedure: September 24, 2024
Indication: The patient is an 84-year-old woman who underwent life-saving percutaneous coronary intervention with placement of an Impella for cardiogenic shock yesterday is now referred back to the Experience Planning Strategist for repeat right heart catheterization and
planned removal of the Impella device. She is sedated and on the ventilator on a low-dose Levophed drip.
ACCESS: The patient was prepped and draped in usual sterile fashion. The previously placed 6 [place] venous sheath was exchanged for a new 6 [place] venous sheath using sterile technique.
HEMODYNAMIC FINDINGS (mmHg):
RA(a,v,m): 19, 17, 16
RV(s/d,EDP): 45/15, 17
PA(s/d/m): 44/28, 33
PCWP(a,v,m): 22, 23, 21
Oxygen Saturations (mg/dl):
PA: 67% on the ventilator with 60% FiO2
LV: 100% on the ventilator with 60% FiO2
Cardiac Output/Index (l/min / l/min/m2):
Estimated Yolanda Method: 5.4 /2.9
Procedure report: The side wire access of the Impella was accessed with a Amplatzer Super Stiff 0.035 wire and the tip positioned in the aortic arch. The Impella was removed with the attached sheath and hemostasis achieved with a seconds handler
holding proximal pressure while a 14 [place] sheath was advanced over the Amplatzer wire. Injection through the 16 [place] sheath showed some flow around the sheath however not enough to visualize the distal artery well. A 12 [place] sheath was then
exchanged for and injection through that sheath showed the artery to be widely patent without dissection or significant vascular injury. 2 sequential Perclose devices were used to successfully achieve hemostasis at the arteriotomy followed by
manual pressure by myself for 15 minutes. Distal pulses were intact and the patient tolerated this without hemodynamic consequence.
Fluoroscopy Time (min): 4.3
Radiation Dose (mGy): 71
DAP (Gy.cm2): 9.0
Complications: None
ASSESSMENT:
1: Successful removal of the Impella device without acute complication
CONCLUSIONS and RECOMMENDATIONS:
1: Continue ongoing critical care in the CVICU.
Patrice Carty M.D.
[2024-09-24 17:15] LABS: Glucose - Point of Care 150 mg/dl (70-99)
[2024-09-24 17:26] LABS: B.E. 1.1 mmol/L; HCO3 24.7 mmol/L (21-28); O2 Saturation % 99.4 % (94-98); PCO2 34 mmHg (32-35); PO2 87 mmHg (83-108); pH 7.47 (7.35-7.45)
[2024-09-24 17:29] LABS: Hematocrit 24.7 % (37.0-47.0); Hemoglobin 8.2 g/dL (12.0-16.0)
--- NOTE | 2024-09-24 20:00 | PTCARENOTE ---
Assumed care of pt from dayshift RN. Walking rounds completed. Pt assessed while laying in bed. Pt is intubated and sedated w/ Propofol and fentanyl infusing as ordered. RASS -2. Pt grimaced slightly when touched on the face. Pt opened eyes
spontaneously and coughed while being deep suctioned. Pt did not move extremities or squeeze hands on command at this time. Pt SR w/ PACs on the tele monitor. HR 90s. Heart tones audible. BP 100s/40s. Levo infusing as ordered. Right radial pulse
weak on palpation. Left brachial pulse weak on palpation. Left popliteal pulse present via Doppler. Right posterior tibial pulse present via Doppler. Right DP pulse not palpable or present w/ Doppler. Trace edema in B/L hands. Pt intubated w/ #8
ETT, 24 cm on the R lip. POX 91-93%. Lung sounds audible anteriorly. Pt having dark bloody oral secretions. Abdomen soft/nontender. Hypoactive BS. Villavicencio catheter C/D/I w/ urine output at < 30ml/hr. OG tube at 57 cm set to low intermittent suction
intact. Pt w/ bruising to her face from previous fall. Right nare packed. Left arm cast intact. Right groin venous sheath intact w/ KVO infusing. Right groin soft. Left groin arterial line leveled, zeroed, and flushed. Left fem triple lumen catheter
C/D/I. See worklist for full nursing assessment and interventions. Family updated on plan of care for the night.
[2024-09-24 22:19] LABS: B.E. 0.5 mmol/L; Ionized Calcium 1.22 mMOL/L (1.15-1.33); O2 Saturation % 99.2 % (94-98); PCO2 33 mmHg (32-35); PO2 83 mmHg (83-108); pH 7.47 (7.35-7.45)
[2024-09-24 22:21] LABS: Hemoglobin 8.2 g/dL (12.0-16.0)
[2024-09-24 22:34] LABS: Magnesium 2.4 mg/dl (1.6-2.3)
[2024-09-25] VITALS (64 sets, daily range): BP systolic 70–128; BP diastolic 45–76; BMI 26.5
[2024-09-25] MEDS: NOVOLOG FLEXPEN-LOW RESISTANCE SC ×5 (00:06→23:41)
[2024-09-25 00:07] LABS: Glucose - Point of Care 105 mg/dl (70-99)
--- NOTE | 2024-09-25 00:22 | PTCARENOTE ---
Pt reassessed. Pt intubated and sedated on propofol and fentanyl. Neuro status unchanged from previous assessment. SR w/ PACs on the tele monitor. HR 80-90s. BP 100s/40s. Levo infusing as ordered. Pulses unchanged from original assessment. Pt EET #8
at 24cm on the right lip is intact. Small bloody secretions. POX 92-95%. FiO2 remains at 60%. PEEP 8. Tidal Volume 500. RR 14. OG tube intact. B/L groin sites stable. Left fem a-line leveled, zeroed, and flushed. Villavicencio catheter C/D/I. Pt is
oliguric. Pt repositioned in bed.
[2024-09-25] MEDS: DIPRIVAN 100 IV (02:35)
[2024-09-25 04:24] LABS: B.E. -0.1 mmol/L; HCO3 23.5 mmol/L (21-28); Ionized Calcium 1.21 mMOL/L (1.15-1.33); PCO2 33 mmHg (32-35); PO2 81 mmHg (83-108); Potassium 3.9 mMOL/L (3.5-5.1); pH 7.46 (7.35-7.45)
[2024-09-25] MEDS: SUBLIMAZE 100 IV (04:28)
[2024-09-25 04:40] LABS: Hematocrit 25.3 % (37.0-47.0); Hemoglobin 8.3 g/dL (12.0-16.0); Mean Corp Hgb Conc. 32.8 g/dL (33.0-37.0); Mean Corpuscular Hgb 31.9 pg (27.0-31.0); Mean Corpuscular Volume 97.3 fL (81.0-99.0); Mean Platelet Volume 10.8 fL (7.4-10.4); Platelet Count 117 10^3/uL (130-400); Red Cell Dist. Width 15.9 % (11.5-14.5); White Blood Cell Count 9.3 10^3/uL (4.8-10.8)
--- NOTE | 2024-09-25 04:40 | PTCARENOTE ---
Addendum entered by Olga Gordon RN 09/25/24 05:16:
Pt temp ~ 100-100.4.
Original Note:
Pt reassessed. No acute change in assessment. Pt intubated and sedated w/ propofol and fentanyl. Neuro status unchanged. Pt occasionally opening eyes and making minor movements. Pt SR to sinus tach on the tele monitor. HR 90-100s. Arterial BP
100s/40s. Levo titrated off. Pulses assessment unchanged. FiO2 titrated down to 50% by respiratory ~0130. Pt tolerated. POX 95-96%. Small bloody oral secretions. OG tube intact. B/L groin sites intact. Left fem a-line leveled, zeroed, and flushed.
Villavicencio catheter C/D/I w/ urine output <30 ml/hr. Pt repositioned. Labs drawn and sent. Bed weight obtained.
[2024-09-25 04:57] LABS: ALT (SGPT) 79 U/L (0-35); AST (SGOT) 122 U/L (14-36); Albumin 2.3 g/dl (3.5-5.0); Alkaline Phosphatase 77 U/L (38-126); Blood Urea Nitrogen 31 mg/dl (7-17); Carbon Dioxide 24 mmol/L (22-30); Chloride 111 mmol/L (98-107); Estimated Creatinine Clearance 36 ml/min; Glucose 109 mg/dl (70-99); Magnesium 2.4 mg/dl (1.6-2.3); Phosphorus 4.2 mg/dl (2.5-4.5); Sodium 143 mmol/L (135-145); Total Bilirubin 1.3 mg/dl (0.2-1.3); Total Protein 4.3 g/dl (6.3-8.2); eGFR 49.86
[2024-09-25 05:58] LABS: Glucose - Point of Care 96 mg/dl (70-99)
--- NOTE | 2024-09-25 07:30 | W.PN.HOSP.TC ---
Today's Communication/Plan
-
SBT possible Extubation as per Risk Control Consultant
start unasyn for possible aspiration pna
IV Tylenol once
monitor H&H and transfuse as needed Hgb<8
Diuresis as per Cardio
Levophed prn MAP<65
Assessment / Plan
Assessment / Plan
Physical Exam
General: sedated intubated
HEENT: Significant Bruising Ecchymosis around face like correlating with history fall, residual epistaxis noted, intubated, OG tube in place
Pulm: Clear to auscultation b/l
Cardio: sinus tachy
Abd/pelvis: soft bowel sounds present, right impella in place, left Femoral Line and Arterial line in place
Ext: s/p left BKA, cold right foot, neg dorsal pedis pulse, pos posterior tibia pulse
Neuro: Sedated
IMPRESSION:
84F former smoker LLE BKA CVA HTN asymptomatic carotid stenosis b/l, subclavian steal syndrome, vertebral artery aneurysm transferred from [facility] due to concern NSTEMI acute HFrEF. Originally patient was admitted to [facility] following
mechanical fall resulting in Left Radial Fracture. S/P ORIF patient developed dyspnea chest tightness troponin elevation concerning for NSTEMI with associate ECHO noting reduced EF. Transferred here for cath, patient was noted to have severe CAD,
developed ventricular fibrillation and ultimately required intubation for airway protection. Stent was placed in left main in process. Patient subsequently admitted to CVICU on amio and nitro gtt with impella. NGT tube was complicated with
epistaxis so OG tube was placed instead.
PLAN:
#NSTEMI
#Multivessal CAD
#Left Main Disease s/p stent placement
#Vfib
#HTN
#Shock suspect cardiogenic
#Acute HFrEF
CVICU admit
briefly treated with amio and nitro in supervisor labor gang
Impella as per cardio
Levophed prn MAP>65
Troponin trended to peak 35.400
asa plavix
cardio eval appreciated
daily weights I/O
Villavicencio for accurate I/O's
diuresis as necessary per cardio
Monitor and replete electrolytes goal Mg 2.0 Potassium 4.0
#Ventilator dependent respiratory failure
Vent settings ABG per CVICU
CXR appreciated possible left lower lobe subsegmental atelectasis and/or small left pleural
Risk Control Consultant eval appreciated
#Lactic acidosis
likely 2/2 shock as above
resolved
#Anemia
monitor H&H
transfuse goal >=8 d/t cardiac hx
#Epistaxis
ENT eval appreciated
persistent bleeding believed to be due to posterior epistaxis as a result of traumatic NG tube placement.
Right nasal packing applied, tentatively planned for removal in about 3 days.
Empiric protonix gtt for possible GI bleed discontinued, switched to GI ppx IV 40 mg daily
#Mild Leukocytosis resolved however patient developed Fever in association with tachycardia concerning for possible Sepsis
#History concerning for aspiration
Follow Blood cultures
Empiric Unasyn started
IV Tylenol once for fever
#Hx HTN
hold home antihypertensive d/t hypotension/shock as above
#Hyperglycemia
A1c 5.5
cont low dose sliding scale for now, eventually discontinue when sugars consistently well controlled
#Mild NELLI vs CKD 3 (more likely)
monitor renal function
possibly baseline Cr 1.2-1.1
avoid nephrotoxic agents as possible
Significant hx PAD, vascular dz
HX CVA
Lt BKA
asymptomatic carotid stenosis b/l
subclavian steal syndrome
dvt ppx SCD
gi ppx Protonix
Full Code
Total Critical Care Time__50___ minutes. I was immediately available to the patient and staff. I personally examined, reviewed labs, diagnostic images/reports, interpretations, treatment plans, discussed patient care with other providers and
patient's daughters Didi and Jayna (patient unable to make medical decisions for herself at this time) entered orders as appropriate and documented the medical record.
Anticipated Discharge: > 48 hours
Subjective/Interval History
-
Date of Service: September 25, 2024
Lethargic but arousable. Responsive to verbal physical stimuli. Follows simple commands.
Objective Data
-
Labs:
Laboratory Results
09/24/24 09/25/24
22:13 04:16
WBC 9.3
Hgb 8.2 L 8.3 L
Hct 25.0 L 25.3 L
Plt Count 117 L D
HCO3 24.0 23.5
Sodium 143
Potassium 4.0
Chloride 111 H
Carbon Dioxide 24
BUN 31 H
Creatinine 1.1 H
Glucose 109 H
Calcium 8.0 L
Total Bilirubin 1.3 D
AST 122 H
ALT 79 H
Alkaline Phosphatase 77
Vital Signs:
Vital Signs
Temp Pulse Resp BP Pulse Ox
100.7 F H 101 14 115/51 92
09/25/24 07:00 09/25/24 07:00 09/25/24 07:00 09/25/24 07:00 09/25/24 07:00
I&O
09/24/24 09/25/24 09/26/24
06:59 06:59 06:59
Intake Total 1587.7 / 1763.8 2311.2 / 2369.2 58 / 58
Output Total 770 / 790 377 / 382 5 / 5
Balance 817.7 / 973.8 1934.2 / 1987.2 53 / 53
--- NOTE | 2024-09-25 08:00 | PTCARENOTE ---
Pt reassessed. Pt intubated and sedated on fentanyl and propofol. Pt able to open eyes briefly when asked. PERRLA 3mm brisk. Sedation turned off for vent weaning. Pt moves all extremities spontaneously. Able to follow commands to squeeze hand and
shake head appropriately. ST with PACs in the 100s, 110s when awake. BP 99/58. Right radial, right PT, left popliteal pulses present via doppler. Left brachial pulses weakly palpable. Generalized +1 edema. POX 95%. Intubated with 8.0 ETT 24cm at the
lip. AC 40% 14 500 8. Small amount of bloody secretions via oral cavity. Scant secretions via ETT. Lungs clear. OGT to 57cm with dark drainage, flushed, meds given via tube. Rojo with no drainage, Dr. Carty aware. Unable to flush rojo. Facial
bruising and abrasions noted. Right and Left groin sites soft, dressings CDI. Left arm in cast. Right AC PIV difficult to flush, and patient grimaces. Right wrist PIV intact and flushes. Right femoral venous sheath intact. Left femoral joe intact
with appropriate waveform. Left femoral TLC intact. See MAR for medication administration. See worklist for complete nursing assessment. Plan of care reviewed with patient and family.
--- NOTE | 2024-09-25 08:03 | W.PN.INTV ---
Today's Communication / Plan
Recommendations
Wean sedation today, off pressors, more awake
SBT and extubate if tolerates
Check Sputum culture, agree with Unasyn
Diuresis as tolerated per team, UO decreased
Nasal packing by ENT--could limit her breathing post extubation
Assessment
-
Patient is an 84-year-old female with previous history of CVA, hypertension, carotid stenosis, subclavian steal syndrome, vertebral artery aneurysm, former smoker transferred from [facility] following admission for mechanical fall resulting
in left radial fracture and facial contusions with epistaxis. Underwent ORIF and subsequently developed shortness of breath, chest tightness, troponin elevation was noted. She had been ruled in for NSTEMI and had comorbid acute heart failure with
reduced ejection fraction. Transferred to for cardiac catheterization, developed hypotension, and VF arrest with brief CPR and 1 shock given, required intubation and Impella placement in the [place]. She was deemed nonsurgical by CTS, stent
placed by Dr Carty. Patient is admitted to CVICU on low dose levophed and stabilized.
VF arrest s/p shock/CPR
Acute hypoxic respiratory failure s/p intubation
Acute NSTEMI s/p LHC and stent, non surgical candidate
L radial fracture s/p ORIF 09/20/24 after mechanical fall
Ischemic cardiomyopathy EF 35%
Acute HFrEF exacerbation
Anemia, unclear chronic/acute, no baseline
Metabolic acidosis
NELLI creat 1.1-1.2, unknown baseline
Hyperglycemia
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
Bilateral carotid artery stenosis
Right Subclavian steal syndrome
CVA
HTN
LLE BKA
PVD h/o stent
Former smoker, suspect COPD
Plan
Sedation: fent/prop, wean off sedation
Pain/sedation: add on IV Dilaudid, stop fent
RASS goals: 0
History of CVA in past
Assess MS post sedation holiday
Hemodynamically stable, off pressors >12 hours
Cardiac history reviewed--extensive, as noted above s/p intervention
ECHO reviewed indicating rEF 30-35%, eventually diuresis when can tolerate
Cards following
Monitor on telemetry
Intubated for hypoxemia, slowly improving
Vent setting reviewed: AC 500/16/60/5+ can try increase PEEP to see if this helps maintain sat
Prior history of lung disease: former smoker, suspect COPD, but no prior PFTs for review
Supplemental O2 as indicated to maintain sats > 89%
CXR/CT reviewed indicating volume overload
ABG(s) reviewed, paO2 remains >80%
Epistaxis s/p ENT eval--posteriorly packed at bedside 09/24
SBT today and extubate if tolerates
NPO, resume diet when able
Likely to need feeds through OGT if cannot extubate
Process Inspector recommendations
Aspiration precautions, HOB > 30 degrees
Speech therapy eval can be considered if at elevated risk
GI prophylaxis if indicated for mechanical ventilation >48 hours, prior history of GERD, stress ulcer formation in the critically ill
NELLI present
Creat at baseline unknown, no history of renal disease
Void trials
Follow urine output, critical I/Os
Replete electrolytes as needed
Fever noted, possible PNA, check sputum culture
Unasyn IV added
Follow fever trend, WBC count
Lactate elevated on admission, continue to trend until <2
CBC stable, no signs of bleeding/unknown Hb baseline
Some coag likely given fibrinogen, INR ok
DVT prophylaxis as assessed based on risk, including mechanical SCDs
Can transfuse if indicated for Hb <7, plt < 10
INR WNL
No prior h/o diabetes or thyroid disease
Monitor accuchecks PRN/SS coverage if needed
HbA1c 5.5
Diagnostic Data
Chest X-Ray: 09/24/24- Endotracheal tube with tip in trachea above the víctor. No pneumothorax. Left hemidiaphragm is obscured suggesting left lower lobe subsegmental atelectasis and/or small left pleural effusion, unchanged. Pulmonary vascularity
at least top normal.
CT Scan:
Echo: 09/23/24- 1. Limited echocardiogram to assess LV function 2. Left ventricle: Moderately reduced systolic function with a visually estimated ejection fraction of 30-35%. There is akinesis of the anterior and inferoseptum to apex
anteroseptum and inferoseptum from the midportion to the apex 3. No pericardial effusion
LHC 09/23/24- HEMODYNAMIC FINDINGS (mmHg):
RA(a,v,m): 18, 14, 13
RV(s/d,EDP): 55/11, 20
PA(s/d/m): 50/31, 35
PCWP(a,v,m): 24, 28, 24
LV(s/d,EDP): 98/28, 44
Ao(s/d,m): 98/54, 69
Oxygen Saturations (mg/dl):
PA: 58% on 4 L of oxygen by nasal cannula
LV: 93% on 4 L of oxygen by nasal cannula
Cardiac Output/Index (l/min / l/min/m2):
Estimated [place] Method: 4.3 /2.4
1: Successful left main stenting with Impella CP hemodynamic support in the setting of cardiogenic shock, respiratory failure and cardiac arrest with ventricular fibrillation requiring defibrillation and pressor support.
PFT's:
Reports and relevant images were personally reviewed.
Critical Care time 35 mins -- The patient is admitted for acute critical illness for the treatment of vital organ failure and/or prevention of further life-threatening conditions. Total care includes time spent in review of history, physical exam,
medications, hemodynamic/ventilator parameters, laboratory data, imaging and discussion with house staff, pharmacy, respiratory therapy, christmas tree grower, and nursing.
Subjective Dataa
Subjective Data
Date of Service:
Date of Service: September 25, 2024
Chief Complaint: Slip Cover Maker Follow Up
Subjective:
Remains intubated overnight, no acute events
Off pressors, arousing
Family at bedside
Objective Data
Data Reviewed
Vital Signs / I&O / Oxygen:
Vital Signs
Temp Pulse Resp BP Pulse Ox
100.7 F H 101 14 115/51 92
09/25/24 07:00 09/25/24 07:00 09/25/24 07:00 09/25/24 07:00 09/25/24 07:00
Intake and Output
09/24/24 09/25/24 09/26/24
06:59 06:59 06:59
Intake Total 1587.7 / 1763.8 2311.2 / 2369.2 58 / 58
Output Total 770 / 790 377 / 382 5 / 5
Balance 817.7 / 973.8 1934.2 / 1987.2 53 / 53
SaO2 [A/C] 92
SaO2 92
Nasal Cannula flow liters per 5
minute
Physical Exam
General: Comfortable and Other (NAD)
HEENT: Normocephalic, Anicteric, Moist Mucous Membranes and Other (Facial contusions noted)
Cardiovascular: S1-S2 and Regular Rhythm
Respiratory: Clear, Non-Labored Respirations and ET Tube
GI: Soft, Non Distended and Non Tender
Neurology: Awake, Alert and Non Verbal (intubated)
Skin: Warm, Dry and Good Color
Labs/Micro/Reports
Lab Data
09/25/24 04:16
09/25/24 04:16
Laboratory Results
09/24/24 09/24/24 09/24/24
09:29 12:10 17:12
APTT 27.0
pH 7.47 H 7.47 H
pCO2 33 34
pO2 84 87
HCO3 24.0 24.7
O2 Delivery Level Not Reportable
09/24/24 09/25/24
22:13 04:16
APTT
pH 7.47 H 7.46 H
pCO2 33 33
pO2 83 81 L
HCO3 24.0 23.5
O2 Delivery Level 50% fio2
[2024-09-25] MEDS: PROTONIX IV 40 MG IV (08:19)
[2024-09-25] MEDS: MIRALAX 17 GRAMS TUBE (08:19)
[2024-09-25] MEDS: LIPITOR 40 MG PO (08:19)
[2024-09-25] MEDS: LOW STRENGTH ASPIRIN 81 MG PO (08:19)
[2024-09-25] MEDS: NSS (PRESERVATIVE FREE) 10 ML IV (08:19)
[2024-09-25] MEDS: PLAVIX 75 MG PO (08:19)
--- NOTE | 2024-09-25 09:30 | PTCARENOTE ---
Dr. Carty at bedside to d/c left fem joe, left fem cvc, and right fem venous sheath. Hemostasis achieved, dressings placed. 20mL urine noted, will continue to monitor UO.
--- NOTE | 2024-09-25 11:33 | PTCARENOTE ---
Multiple attempts made to obtain 2nd set of blood cultures, lactic acid, and ABG by RT, CT KATHY, RN, and Phlebotomy. Providers notified. PICC ordered. Verbal Order to extubate patient by Dr. Norma Georges. RT notified.
--- NOTE | 2024-09-25 11:45 | PTCARENOTE ---
Pt extubated per verbal order Dr. Norma Georges. POX 86% on 6L NC, attempted venti mask, 15L NRB, and finally high flow NC as per Dr. Norma Georges, POX resolved to 93%. Hospitalist at bedside, CXR ordered and obtained. Pt unable to speak d/t hoarse voice
post extubation. Able to follow commands. ST with PACs on tele with rates 100s-110s. BP 98/56. All pulses unchanged from prior assessment. Lungs diminished throughout. OGT removed with extubation. Right nare nasal packing remains intact. rojo
continues to have minimal output, awaiting supplies to irrigate again. bladder scanned for 50mL. B/l groins soft, nontender, dressings CDI. Right wrist 20g PIV and right forearm 22g PIV intact. Family at bedside and updated.
[2024-09-25] MEDS: UNASYN IV ×3 (12:22→23:42)
[2024-09-25] MEDS: OFIRMEV 100 IV (12:35)
[2024-09-25 12:39] LABS: Glucose - Point of Care 132 mg/dl (70-99)
--- NOTE | 2024-09-25 13:15 | PTCARENOTE ---
IV team at bedside to place midline for blood draws.
--- NOTE | 2024-09-25 13:27 | W.PN.CARDCBS ---
Today's Communication / Plan
-
Check proBNP
Transfuse
Likely IV Lasix
Levophed
Hopefully to avoid reintubation
Impression / Plan
-
This is a summary, see scanned cardiology consultation
PCP: Chantel Montelongo DO
CDY: Jimmy Meraz DO (new to pt)
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
emergency room 09/19/2024 for evaluation after a mechanical fall while walking her dog. � LOC. She was down outside for approx. 3 hrs and upon arrival her Temp was 94. She was found to have a L intra-articular distal radius fracture and underwent
ORIF of the L radius on 09/20/2024. EKG on admission showed ST with PVC�s. Thereafter hemodynamically unstable, transferred to [place] where cardiac catheterization revealed critical ostial left main disease with cardiogenic shock necessitating
Impella placement and left main PCI.
PMH: Bilateral carotid disease, right subclavian steal, history of CVA, hypertension, hypercholesterolemia, left BKA, prior peripheral arterial stents
Current medications: Clopidogrel 75 mg a day, aspirin 81 mg a day, atorvastatin 40, pantoprazole, nor epi
Impression:
Cardiogenic shock with VF arrest and critical ostial left main disease status post left main PCI
post ORIF L radius 09/20/24 after mechanical fall
Ischemic cardiomyopathy EF 35%, 45-50% on repeat echo with Impella support
bilateral carotid artery stenosis
Right Subclavian steal syndrome
CVA
HTN
LLE BKA
PVD h/o stent
Echo 09/24/2024: EF 45-50%, akinesis of mid to apical inferoseptal and anteroseptal and apical brothers, anterior hypokinesis, Impella in place, valves not assessed in detail, RV appeared normal
Plan:
Her Impella has been removed, and she has been extubated.
However, urine output is now low, Hemoglobin has dropped to 7.4, blood pressure has dropped. Platelets stable at 116. Hemoglobin has dropped to 7.4. On aspirin and Plavix.
Will start norepinephrine.
Transfuse.
Check proBNP, consider furosemide with Levophed to support BP if possible.
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
Subjective
Date of Service: September 25, 2024:
Impella removed yesterday. Patient extubated today, requires high flow oxygen to maintain sats, systolic blood pressure in the 70s by left arm cuff. Somewhat lethargic, does not appear to be in acute distress, right nares is packed related to
epistaxis.
84-year-old woman admitted with cardiogenic shock related to ostial left main disease, VF arrest in [employer] and successful left main stenting, no other high-grade obstructive CAD, now with Impella, epistaxis with NG tube placement.
PMH: PAD, left lower extremity BKA, history of prior peripheral arterial stents, prior stroke, hypertension, bilateral carotid disease, subclavian steal, mechanical fall with loss of consciousness, ORIF for left radial fracture on September 20
Allergies: None to meds
Outpatient cardiac meds: Amlodipine 5, aspirin 81 mg a day, atorvastatin 40 mg a day, cilostazol, losartan 25 a day, timolol current meds: Plavix 75 mg a day, aspirin 81 mg a day, atorvastatin 40 mg a day, IV fentanyl, insulin, norepinephrine,
propofol, pantoprazole
Current medications: Plavix, aspirin 81 mg a day, atorvastatin 40 mg a day, MiraLAX, insulin, pantoprazole, ampicillin/sulbactam
88/51, pulse 108, respiratory 12, febrile, extubated, intake and output +1.3 L,, facial lacerations and contusions, NG tube in place, high flow oxygen, diminished breath sounds, heart rate around 100, sinus, no murmurs, abdomen benign, extremities
with some edema, cast on right forearm,
Chest x-ray with CHF
Hemoglobin is 7.4, platelets 116, ionized calcium is 1.02, mag is 2.4, AST is 122, ALT 79, troponin 4.3, CMP pending last creatinine was 1.1 with BUN of 31
Objective
Labs:
09/25/24 04:16
Labs
Hgb 8.3 g/dL (12.0-16.0) L 09/25/24 04:16
Hct 25.3 % (37.0-47.0) L 09/25/24 04:16
Plt Count 117 10^3/uL (130-400) L D 09/25/24 04:16
PT 15.2 Sec (11.4-14.6) H 09/23/24 21:49
INR 1.17 09/23/24 21:49
APTT 27.0 Sec (23.4-35.0) 09/24/24 09:29
Sodium 143 mmol/L (135-145) 09/25/24 04:16
Potassium 4.0 mmol/L (3.5-5.1) 09/25/24 04:16
BUN 31 mg/dl (7-17) H 09/25/24 04:16
Creatinine 1.1 mg/dL (0.6-1.0) H 09/25/24 04:16
Glucose 109 mg/dl (70-99) H 09/25/24 04:16
Troponins
09/23/24 09/24/24 09/24/24
14:37 05:36 12:10
Troponin I 16.300 H* 35.400 H* 25.500 H* D
09/25/24
04:16
Troponin I 15.100 H*
Vital Signs and I&O:
Vital Signs
Temp Pulse Resp BP Pulse Ox
38.0 C H 108 12 88/51 91
09/25/24 13:00 09/25/24 13:00 09/25/24 13:00 09/25/24 13:00 09/25/24 13:00
Vital Signs
Temp Pulse Resp BP Pulse Ox
38.0 C H 108 12 88/51 91
09/25/24 13:00 09/25/24 13:00 09/25/24 13:00 09/25/24 13:00 09/25/24 13:00
Intake & Output
09/23/24 09/24/24 09/25/24 09/26/24
07:59 07:59 07:59 07:59
Intake Total 1763.8 / 1857.5 2193.1 / 2238.1 435 / 435
Output Total 790 / 805 362 / 362
Balance 973.8 / 1052.5 1831.1 / 1876.1 410 / 410
Physical Exam
Physical Exam
See above
--- NOTE | 2024-09-25 13:30 | PTCARENOTE ---
Pt hypotensive. Providers made aware. Orders to start levophed gtt. Administered per order.
--- NOTE | 2024-09-25 14:00 | PTCARENOTE ---
Attempted to irrigate rojo without success. Rojo removed, new 16 sao tomean temp sensing rojo placed without difficulty. Clear yellow urine returned.
[2024-09-25 14:08] LABS: Hematocrit 22.3 % (37.0-47.0); Hemoglobin 7.4 g/dL (12.0-16.0); Mean Corp Hgb Conc. 33.2 g/dL (33.0-37.0); Mean Corpuscular Hgb 31.8 pg (27.0-31.0); Mean Corpuscular Volume 95.7 fL (81.0-99.0); Mean Platelet Volume 11.1 fL (7.4-10.4); Platelet Count 116 10^3/uL (130-400); Red Blood Cell Count 2.33 10^6/uL (4.20-5.40); Red Cell Dist. Width 15.9 % (11.5-14.5); White Blood Cell Count 9.9 10^3/uL (4.8-10.8)
[2024-09-25 14:12] LABS: Ionized Calcium 1.02 mMOL/L (1.15-1.33)
[2024-09-25 14:20] LABS: Lactic Acid 1.1 mmol/L (0.7-2.0)
[2024-09-25 14:21] LABS: Blood Urea Nitrogen 34 mg/dl (7-17); Calcium 7.6 mg/dl (8.4-10.2); Carbon Dioxide 24 mmol/L (22-30); Chloride 111 mmol/L (98-107); Estimated Creatinine Clearance 36 ml/min; Glucose 113 mg/dl (70-99); Potassium 4.1 mmol/L (3.5-5.1); Sodium 142 mmol/L (135-145); eGFR 49.86
--- NOTE | 2024-09-25 14:45 | PTCARENOTE ---
1unit PRBC administered.
[2024-09-25] MEDS: CALCIUM GLUCONATE 100 IV (14:52)
--- NOTE | 2024-09-25 16:15 | PTCARENOTE ---
Pt reassessed. SR with PACs on tele with rates 90s-100s. BP 95/56 off levophed gtt. POX 94% on HFNC 80% 55L. Pulses unchanged. Pt more interactive, answering questions, conversing with family. LUIS. Villavicencio draining adequate amounts of clear sandra
urine. B/l groins soft, dressings CDI. Right wrist PIV leaking, and painful, removed. Right upper arm midline and right forearm PIV intact. Family at bedside.
[2024-09-25 16:29] LABS: NT-proBNP 4010 pg/ml
[2024-09-25 16:40] LABS: ALT (SGPT) 66 U/L (0-35); AST (SGOT) 99 U/L (14-36); Albumin 2.2 g/dl (3.5-5.0); Alkaline Phosphatase 65 U/L (38-126); Direct Bilirubin 0.3 mg/dl (0.0-0.4); Magnesium 2.2 mg/dl (1.6-2.3); Phosphorus 4.9 mg/dl (2.5-4.5); Total Bilirubin 1.3 mg/dl (0.2-1.3); Total Protein 4.1 g/dl (6.3-8.2)
[2024-09-25] MEDS: LASIX 40 MG IV (18:17)
[2024-09-25 18:25] LABS: Glucose - Point of Care 104 mg/dl (70-99)
--- NOTE | 2024-09-25 20:14 | PTCARENOTE ---
Assumed care of pt from dayshift RN. Walking rounds completed. Pt laying in bed at this time. Pt awake, alert, and oriented to person/place/time. Slow speech. Pt SR to sinus tach on the tele monitor w/ occasional PACs. Heart tones audible. BP
111/59. MAP 72. Pt right radial, right PT, left brachial, and left popiteal pulses present via Doppler. +2 generalized edema. Pt on high flow nasal cannula at 60% and 55 L. POX 96%. Lung sounds audible anteriorly. Occasional blood tinged secretions.
Abdomen soft/nontender. Hypoactive BS. Villavicencio catheter C/D/I and draining clear/yellow urine. Right upper arm midline C/D/I. Right forearm 22 gauge C/D/I. B/L groin sites soft/intact. No hematoma. Pt w/ bruising on face and bloody scab on nose from
previous fall. Right nare packed. Pt updated w/ plan of care for the night. See worklist for full nursing assessment and interventions. Call vazquez within reach.
[2024-09-25 21:13] LABS: B.E. 2.6 mmol/L; HCO3 25.9 mmol/L (21-28); Ionized Calcium 1.23 mMOL/L (1.15-1.33); O2 Saturation % 98.2 % (94-98); PCO2 34 mmHg (32-35); PO2 75 mmHg (83-108); Potassium 3.4 mMOL/L (3.5-5.1); pH 7.49 (7.35-7.45)
[2024-09-25] MEDS: KCL 270 MEQ IV (21:35)
[2024-09-25 23:41] LABS: Glucose - Point of Care 105 mg/dl (70-99)
--- NOTE | 2024-09-25 23:49 | PTCARENOTE ---
Pt reassessed. Mental orientation unchanged. SR to sinus tach w/ PACs on the tele monitor. HR 90s-100s. BP 100s-110s/50-60s. Pulses unchanged. ABG drawn by respiratory. Pt on high flow nasal cannula. Based on ABG result high flow settings changed to
80% and 50 L by respiratory. Potassium replaced. Occasional non productive cough. Mouth care completed. B/L groin sites intact and soft. Villavicencio catheter C/D/I and draining clear/yellow urine. Pt repositioned. Call vazquez within reach.
[2024-09-26] VITALS (33 sets, daily range): BP systolic 90–141; BP diastolic 52–75; PULSE 74–79; O2SAT 96; BMI 27.0
--- NOTE | 2024-09-26 03:40 | PTCARENOTE ---
Pt reassessed. No acute change in assessment. Pt is SR to sinus tach w/ occasional PAC's on the tele monitor. HR 90-100s. BP 90-110's/60s. Pulses unchanged. Pt on high flow nasal cannula at 50 L and 80%. POX 97%. Villavicencio catheter C/D/I and draining
clear/yellow urine. B/L groin sites intact and soft. Pt repositioned in bed. Labs drawn and sent.
[2024-09-26 04:06] LABS: Hematocrit 28.1 % (37.0-47.0); Mean Corpuscular Hgb 31.3 pg (27.0-31.0); Mean Corpuscular Volume 97.6 fL (81.0-99.0); Mean Platelet Volume 10.5 fL (7.4-10.4); Platelet Count 117 10^3/uL (130-400); Red Blood Cell Count 2.88 10^6/uL (4.20-5.40); Red Cell Dist. Width 15.5 % (11.5-14.5); White Blood Cell Count 9.1 10^3/uL (4.8-10.8)
[2024-09-26 04:39] LABS: ALT (SGPT) 62 U/L (0-35); AST (SGOT) 90 U/L (14-36); Albumin 2.6 g/dl (3.5-5.0); Alkaline Phosphatase 70 U/L (38-126); Blood Urea Nitrogen 32 mg/dl (7-17); Calcium 8.1 mg/dl (8.4-10.2); Carbon Dioxide 26 mmol/L (22-30); Chloride 111 mmol/L (98-107); Estimated Creatinine Clearance 36 ml/min; Glucose 100 mg/dl (70-99); Magnesium 2.1 mg/dl (1.6-2.3); Phosphorus 5.1 mg/dl (2.5-4.5); Potassium 3.9 mmol/L (3.5-5.1); Sodium 145 mmol/L (135-145); Total Bilirubin 1.4 mg/dl (0.2-1.3); Total Protein 4.7 g/dl (6.3-8.2); eGFR 49.86
[2024-09-26 06:25] LABS: Glucose - Point of Care 101 mg/dl (70-99)
[2024-09-26] MEDS: NOVOLOG FLEXPEN-LOW RESISTANCE SC ×4 (06:25→23:33)
[2024-09-26] MEDS: UNASYN IV ×4 (06:25→23:32)
--- NOTE | 2024-09-26 07:08 | W.PN.HOSP.TC ---
Today's Communication/Plan
-
Downgrade to IMU
wean O2 supplementation as tolerated
dc Villavicencio, trial of void
bladder scan prn
daily weights I/O
transfuse prn Hgb<8
IV Lasix once prior to transfusion today
ST/PT/OT
Assessment / Plan
Assessment / Plan
Physical Exam
General: no acute distress, appears relatively comfortable
HEENT: Significant Bruising Ecchymosis around face healing
Pulm: Clear to auscultation b/l
Cardio: sinus tachy
Abd/pelvis: soft bowel sounds present
Ext: s/p left BKA, cool right foot
Neuro: Awake alert conversant though speaks few words at a time, slow mentation
IMPRESSION:
84F former smoker LLE BKA CVA HTN asymptomatic carotid stenosis b/l, subclavian steal syndrome, vertebral artery aneurysm transferred from [facility] due to concern NSTEMI acute HFrEF. Originally patient was admitted to [place] following
mechanical fall resulting in Left Radial Fracture. S/P ORIF patient developed dyspnea chest tightness troponin elevation concerning for NSTEMI with associate ECHO noting reduced EF. Transferred here for cath, patient was noted to have severe CAD,
developed ventricular fibrillation and ultimately required intubation for airway protection. Stent was placed in left main in process. Patient subsequently admitted to CVICU on amio and nitro gtt with impella. NGT tube was complicated with
epistaxis so OG tube was placed instead. Patient since improved, extubated, downgraded to IMU.
PLAN:
#NSTEMI
#Multivessal CAD
#Left Main Disease s/p stent placement
#Vfib
#HTN
#Shock suspect cardiogenic
#Acute HFrEF
CVICU admit since improved stable for downgrade IMU 09/26/24
briefly treated with amio and nitro in manager cath lab
Impella completed as per cardio
weaned off Levophed
Troponin trended to peak 35.400
asa plavix
cardio eval appreciated
daily weights I/O
Villavicencio discontinued, trial of void 09/26/24
diuresis as necessary per cardio
Monitor and replete electrolytes goal Mg 2.0 Potassium 4.0
#Ventilator dependent respiratory failure
CXR appreciated possible left lower lobe subsegmental atelectasis and/or small left pleural
[employer] Machine Feeder eval appreciated extubated 09/25 to high flow
gradually weaned down to midflow
speech eval appreciated 09/26 continued NPO but cleared for oral meds crushed in pureed, sips of clears, Ice chips
aspiration precautions
#Lactic acidosis
likely 2/2 shock as above
resolved
#Anemia
#Acute blood loss anemia 2/2 epistaxis as below
monitor H&H
transfuse goal >=8 d/t cardiac hx
check B12 Folate Iron studies
Required 3 separate transfusions over the course of hospitalization
Lasix given with transfusions given heart failure
#Epistaxis
ENT eval appreciated
persistent bleeding believed to be due to posterior epistaxis as a result of traumatic NG tube placement.
Right nasal packing applied since removed after 3 days, epistaxis resolved
#Mild Leukocytosis resolved however patient developed Fever in association with tachycardia concerning for possible Sepsis (less likely)
#History concerning for aspiration
Follow Blood cultures
Empiric Unasyn started, cont
IV Tylenol once for fever, since resolved
#Hx HTN
hold home antihypertensive d/t hypotension/shock as above
#Hyperglycemia
A1c 5.5
cont low dose sliding scale for now, eventually discontinue when sugars consistently well controlled
#Mild NELLI vs CKD 3 (more likely)
monitor renal function
possibly baseline Cr 1.2-1.1
avoid nephrotoxic agents as possible
Significant hx PAD, vascular dz
HX CVA
Lt BKA
asymptomatic carotid stenosis b/l
subclavian steal syndrome
PT/OT appreciated Acute Rehab
dvt ppx SCD
gi ppx Protonix
Full Code
Medically stable for downgrade IMU
Discussed with patient, patient's daughters Jayna and Didi, Cardiology, [employer] Machine Feeder, Nurse, CT surgeon balbir
I spent a total of 55 minutes with the patient or on the floor. More than 50% of this time involved counseling and coordination of care.
Anticipated Discharge: > 48 hours
Subjective/Interval History
-
Date of Service: September 26, 2024
Weaning down on oxygen requirement. Patient is awake, communicative though speaks few words at a time. BP stable, off pressor. No acute distress, appears relatively comfortable at this time.
Objective Data
-
Labs:
Laboratory Results
09/25/24 09/25/24 09/26/24
21:07 23:00 03:37
WBC 9.1
Hgb Cancelled 9.0 L D
Hct Cancelled 28.1 L
Plt Count 117 L
HCO3 25.9
Sodium 145
Potassium 3.9
Chloride 111 H
Carbon Dioxide 26
BUN 32 H
Creatinine 1.1 H
Glucose 100 H
Calcium 8.1 L
Total Bilirubin 1.4 H
AST 90 H
ALT 62 H
Alkaline Phosphatase 70
Vital Signs:
Vital Signs
Temp Pulse Resp BP Pulse Ox
99.2 F 92 14 99/58 97
09/26/24 07:00 09/26/24 07:00 09/26/24 07:00 09/26/24 07:00 09/26/24 07:00
I&O
09/25/24 09/26/24 09/27/24
06:59 06:59 06:59
Intake Total 2311.2 / 2369.2 1170.8 / 1170.8
Output Total 377 / 382 2820 / 2880 60 / 60
Balance 4.2 1986.2 -9.2 / -1709.2 -
--- NOTE | 2024-09-26 08:00 | PTCARENOTE ---
Patient received from night manager resting in bed, sleepy but arousable and appropriate. NSR via cm, SaO2 @ 96% on High flow cannula 50L/80%. RUE midline catheter present. Villavicencio catheter to gravity. Diffuse bruising noted to face d/t recent fall. R
nare packing noted. CHRIS SMITH. Daughters to bedside, patient and family updated to plan of care for the day, in agreement. See work list for full assessment and interventions performed.
[2024-09-26] MEDS: OFIRMEV 100 IV (08:21)
--- NOTE | 2024-09-26 08:28 | W.PN.INTV ---
Today's Communication / Plan
Recommendations
Doing well post extubation, weaned to 8L from HFNC
Encouraged further PT/OOB, ambulation, IS
Diuresis per team
Abx for finite course, cultures negative
Packing to be removed by ENT
Transfer out of ICU, we follow
Assessment
-
Patient is an 84-year-old female with previous history of CVA, hypertension, carotid stenosis, subclavian steal syndrome, vertebral artery aneurysm, former smoker transferred from [facility] following admission for mechanical fall resulting
in left radial fracture and facial contusions with epistaxis. Underwent ORIF and subsequently developed shortness of breath, chest tightness, troponin elevation was noted. She had been ruled in for NSTEMI and had comorbid acute heart failure with
reduced ejection fraction. Transferred to for cardiac catheterization, developed hypotension, and VF arrest with brief CPR and 1 shock given, required intubation and Impella placement in the Col[employer] Room Worker. She was deemed nonsurgical by CTS, stent
placed by Dr Carty. Patient is admitted to CVICU on low dose levophed and stabilized.
VF arrest s/p shock/CPR
Acute hypoxic respiratory failure s/p intubation
Acute NSTEMI s/p LHC and stent, non surgical candidate
L radial fracture s/p ORIF 09/20/24 after mechanical fall
Ischemic cardiomyopathy EF 35%
Acute HFrEF exacerbation
Anemia, unclear chronic/acute, no baseline
Metabolic acidosis
NELLI creat 1.1-1.2, unknown baseline
Hyperglycemia
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
Bilateral carotid artery stenosis
Right Subclavian steal syndrome
CVA
HTN
LLE BKA
PVD h/o stent
Former smoker, suspect COPD
Plan
Sedation: off sedation >24 hours
Pain/sedation: IV Dilaudid, PRN
RASS goals: 0
History of CVA in past
Hemodynamically stable, off pressors >12 hours
Cardiac history reviewed--extensive, as noted above s/p intervention
ECHO reviewed indicating rEF 30-35%, eventually diuresis when can tolerate
Cards following
Monitor on telemetry
Diuresis per team
Intubated for hypoxemia, extubated 09/25/24, doing well
Prior history of lung disease: former smoker, suspect COPD, but no prior PFTs for review
Supplemental O2 as indicated to maintain sats > 89%, maintained on 8L, but weaning down
CXR/CT reviewed indicating volume overload
Epistaxis s/p ENT eval--posteriorly packed at bedside 09/24
Encouraged IS, ambulation/OOB
Advance diet as tolerated
Likely to need feeds through OGT if cannot extubate
Fruit Grading Supervisor recommendations
Aspiration precautions, HOB > 30 degrees
Speech therapy eval can be considered if at elevated risk
NELLI present--stable creat 1.1 (could be baseline)
No known history of renal disease
Void trials
Follow urine output, critical I/Os
Replete electrolytes as needed
Fever noted, possible PNA
Unasyn IV added
Culture neg to date, finite course
Follow fever trend, WBC count
CBC stable, no signs of bleeding/unknown Hb baseline
Some coag likely given fibrinogen, INR ok
DVT prophylaxis as assessed based on risk, including mechanical SCDs
Can transfuse if indicated for Hb <7, plt < 10
INR WNL
No prior h/o diabetes or thyroid disease
Monitor accuchecks PRN/SS coverage if needed
HbA1c 5.5
Diagnostic Data
Chest X-Ray: 09/24/24- Endotracheal tube with tip in trachea above the víctor. No pneumothorax. Left hemidiaphragm is obscured suggesting left lower lobe subsegmental atelectasis and/or small left pleural effusion, unchanged. Pulmonary vascularity
at least top normal.
CT Scan:
Echo: 09/23/24- 1. Limited echocardiogram to assess LV function 2. Left ventricle: Moderately reduced systolic function with a visually estimated ejection fraction of 30-35%. There is akinesis of the anterior and inferoseptum to apex
anteroseptum and inferoseptum from the midportion to the apex 3. No pericardial effusion
C 09/23/24- HEMODYNAMIC FINDINGS (mmHg):
RA(a,v,m): 18, 14, 13
RV(s/d,EDP): 55/11, 20
PA(s/d/m): 50/31, 35
PCWP(a,v,m): 24, 28, 24
LV(s/d,EDP): 98/28, 44
Ao(s/d,m): 98/54, 69
Oxygen Saturations (mg/dl):
PA: 58% on 4 L of oxygen by nasal cannula
LV: 93% on 4 L of oxygen by nasal cannula
Cardiac Output/Index (l/min / l/min/m2):
Estimated Yolanda Method: 4.3 /2.4
1: Successful left main stenting with Impella CP hemodynamic support in the setting of cardiogenic shock, respiratory failure and cardiac arrest with ventricular fibrillation requiring defibrillation and pressor support.
PFT's:
Reports and relevant images were personally reviewed.
Critical Care time 35 mins -- The patient is admitted for acute critical illness for the treatment of vital organ failure and/or prevention of further life-threatening conditions. Total care includes time spent in review of history, physical exam,
medications, hemodynamic/ventilator parameters, laboratory data, imaging and discussion with house staff, pharmacy, respiratory therapy, co op, and nursing.
Subjective Dataa
Subjective Data
Date of Service:
Date of Service: September 26, 2024
Chief Complaint: [employer] Supervisor Follow Up
Subjective:
Doing well today, weaned off HFNC now on 8L MF
No new complaints
Family at bedside
Off pressors
Objective Data
Data Reviewed
Vital Signs / I&O / Oxygen:
Vital Signs
Temp Pulse Resp BP Pulse Ox
99 F 92 18 121/67 97
09/26/24 08:00 09/26/24 08:00 09/26/24 08:00 09/26/24 08:00 09/26/24 08:00
Intake and Output
09/25/24 09/26/24 09/27/24
06:59 06:59 06:59
Intake Total 2311.2 / 2369.2 1170.8 / 1170.8
Output Total 377 / 382 2820 / 2880 110 / 110
Balance 1934.2 / 1987.2 -1649.2 / -1709.2 -110 / -110
SaO2 [CPAP/PSV] 92
SaO2 [A/C] 92
SaO2 97
Nasal Cannula flow liters per 50
minute
Physical Exam
General: Comfortable and Other (NAD)
HEENT: Normocephalic, Anicteric, Moist Mucous Membranes, Other (Facial contusions noted) and Other (Packing in place, R nostril)
Cardiovascular: S1-S2 and Regular Rhythm
Respiratory: Clear and Non-Labored Respirations
GI: Soft, Non Distended and Non Tender
Neurology: Awake, Alert, Oriented, No Motor Deficits and Other (Following commands)
Skin: Warm, Dry and Good Color
Labs/Micro/Reports
Lab Data
09/26/24 03:37
09/26/24 03:37
Laboratory Results
09/25/24 09/25/24
09:09 21:07
pH Cancelled 7.49 H
pCO2 Cancelled 34
pO2 Cancelled 75 L
HCO3 Cancelled 25.9
O2 Delivery Level Cancelled
Microbiology
09/25/24 12:29 Sputum Respiratory Culture - Preliminary
Usual Respiratory Jennifer
09/25/24 12:29 Sputum Gram Stain - Preliminary
[2024-09-26] MEDS: PROTONIX IV 40 MG IV (08:49)
[2024-09-26] MEDS: NSS (PRESERVATIVE FREE) 10 ML IV (08:50)
[2024-09-26] MEDS: MIRALAX TUBE (09:03)
[2024-09-26] MEDS: TIMOPTIC 0.5% OPHTHALMIC SOLUTION 1 DROP OPHTH ×2 (09:27→20:35)
[2024-09-26] MEDS: LIPITOR 40 MG PO (09:50)
[2024-09-26] MEDS: LOW STRENGTH ASPIRIN 81 MG PO (09:51)
[2024-09-26] MEDS: PLAVIX 75 MG PO (09:51)
--- NOTE | 2024-09-26 09:52 | PTOTSP ---
Speech Therapy Evaluation:
Pt exhibits clinical signs of oropharyngeal dysphagia, likely acute on chronic in nature. Chronic component likely related to previous CVA. Acute component likely related to cardiac arrest, recent intubation, generalized weakness, and respiratory
insufficiency given O2 requirement. Pt remains at an increased risk of aspiration due to tenuous respiratory status with reduced breathing/swallow coordination.
Recommend:
1. NPO with ARHP via ice chips/tsp of water sparingly with RN supervision only.
2. Essential medications crushed in puree (RN reported 1).
3. Through oral care 4x/daily via suction toothbrush
4. Monitor respiratory status
5. ST to follow at acute care level
--- NOTE | 2024-09-26 10:21 | CM ---
Reviewed chart. Met with Mrs. Johnson and her daughter to review discharge plans. Mrs. Johnson is awake and sitting in the chair. Prior to admission she resides alone in a bi-level home with twelve steps to enter. Once she is the home she has a
first floor set-up. Prior to admission she was independent with ambulation and adls. She does use a walker at night. She was in [facility] in the past after her amputation. Her daughter resides in [place] in a one level home and
depending on her functional status may take her mother home with her for awhile. Will need to see her current functional level to see if she will have any skilled care needs. Medical work-up in progress. The discharge plan is to go to SNF/Rehab.
versus home with daughter when medically stable.
--- NOTE | 2024-09-26 10:30 | PTCARENOTE ---
Patient worked w/PT/OT, assisted oob to chair. Patient tolerated well.
[2024-09-26 12:28] LABS: Glucose - Point of Care 102 mg/dl (70-99)
--- NOTE | 2024-09-26 13:47 | PTCARENOTE ---
Patient transferred back to bed w/two max assist. Villavicencio catheter d/c'd, Purewick placed. Patient tolerated well. VSS. Family to bedside.
--- NOTE | 2024-09-26 14:10 | W.PN.CARDCBS ---
Addendum entered and electronically signed by Jimmy Toledo MD 09/26/24 15:30:
Looks more comfortable today, sitting in chair, extubated, off pressors, denies pain. Received blood yesterday.
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
emergency room 09/19/2024 for evaluation after a mechanical fall while walking her dog � LOC. She was down outside for approx. 3 hrs and upon arrival her Temp was 94. She was found to have a L intra-articular distal radius fracture and underwent
ORIF of the L radius on 09/20/2024. EKG on admission showed ST with PVC�s. Thereafter hemodynamically unstable, transferred to [facility] where cardiac catheterization revealed critical ostial left main disease with cardiogenic shock necessitating
Impella placement and left main PCI.
PMH: Bilateral carotid disease, right subclavian steal, history of CVA, hypertension, hypercholesterolemia, left BKA, prior peripheral arterial stents
Current meds: Clopidogrel 75 mg a day, aspirin 81 mg a day, atorvastatin 40 mg daily, MiraLAX, pantoprazole 40 IV daily, ampicillin/sulbactam, norepinephrine now off, timolol and Xalatan as received as needed Lasix
112/52, pulse 85, 318, afebrile, intake and output -2 L, weight is 75.9 kg, if accurate up 1.4 kg, daughter is at bedside, patient now comfortable in bed, weak voice but answers questions, recalls her mechanical fall prior to hospital stay, head
neck exam with contusions and lacerations, lungs are fairly tubular on left. Still coughing, regular rate and rhythm, no obvious murmurs, JVD okay, extremities with 2+ edema on right, left BKA, right leg appears viable with diminished pulses
Hemoglobin 9.0 at 3:30 AM, received blood, follow-up hemoglobin pending, platelets are 117, BUN/creatinine 32 and 1.1, creatinine is stable, potassium 3.9 AST 90, ALT 62, proBNP yesterday 4010
Impression: See below
Plan:
She continues to improve.
proBNP yesterday was approximately 4000, she received furosemide x 1. Still on mid flow oxygen but oxygenation adequate. Tubular breath sounds on left, encourage incentive spirometry
Slow initiation and up titration of GDMT, to start with metoprolol ER in a.m. continue aspirin and Plavix.
From my standpoint okay to transfer to [facility].
Original Note:
Today's Communication / Plan
-
Wean oxygen as tolerated
Remains n.p.o. provide medications crushed in applesauce
Continue aspirin and Plavix
Will add low-dose Toprol 12.5 mg 09/27/2024 in AM
GDMT as blood pressure allows
Impression / Plan
-
This is a summary, see scanned cardiology consultation
PCP: Chantel Montelongo DO
CDY: Jimmy Meraz DO (new to )
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
emergency room 09/19/2024 for evaluation after a mechanical fall while walking her dog. � LOC. She was down outside for approx. 3 hrs and upon arrival her Temp was 94. She was found to have a L intra-articular distal radius fracture and underwent
ORIF of the L radius on 09/20/2024. EKG on admission showed ST with PVC�s. Thereafter hemodynamically unstable, transferred to [facility] where cardiac catheterization revealed critical ostial left main disease with cardiogenic shock necessitating
Impella placement and left main PCI.
PMH: Bilateral carotid disease, right subclavian steal, history of CVA, hypertension, hypercholesterolemia, left BKA, prior peripheral arterial stents
Current medications: Clopidogrel 75 mg a day, aspirin 81 mg a day, atorvastatin 40, pantoprazole, nor epi
Impression:
Transfer from [facility] to 09/23/2024 after unwitnessed fall while walking her dog
Cardiogenic shock with in hospital VF arrest requiring intubation 09/23/2024
Critical ostial left main disease on cardiac catheterization
status post left main CAREN 09/23/2024 with Impella support
Removal of Impella device 09/24/2024
post ORIF L radius 09/20/24 after mechanical fall
Ischemic cardiomyopathy EF 35%, 45-50% on repeat echo with Impella support
bilateral carotid artery stenosis
Right Subclavian steal syndrome
CVA
HTN
LLE BKA
PVD h/o stent
Cardiac catheterization 09/23/2024: LM 80 to 90% ostial stenosis status post 4.0 x 12 mm [place] drug-eluting stent. LAD: Patent. Left circumflex moderate nonobstructive luminal irregularities. RCA: Patent.
HEMODYNAMIC FINDINGS (mmHg):RA(a,v,m): 18, 14, 13; RV(s/d,EDP): 55/11, 20; PA(s/d/m): 50/31, 35; PCWP(a,v,m): 24, 28, 24; LV(s/d,EDP): 98/28, 44; Ao(s/d,m): 98/54, 69;
Oxygen Saturations (mg/dl): PA: 58% on 4 L of oxygen by nasal cannula; LV: 93% on 4 L of oxygen by nasal cannula
Cardiac Output/Index (l/min / l/min/m2): Estimated Yolanda Method: 4.3 /2.4
Echo 09/24/2024: EF 45-50%, akinesis of mid to apical inferoseptal and anteroseptal and apical brothers, anterior hypokinesis, Impella in place, valves not assessed in detail, RV appeared normal
Plan:
Presented as transfer from [facility] to [facility] 09/23/2024 with concern for NSTEMI following unwitnessed mechanical fall at home and was found down on the ground for at least 4 hours. Patient had wrist fracture and underwent left radial ORIF
09/20/2024. Postoperatively patient developed chest pain, shortness of breath and elevated troponin and was found to have reduced ejection fraction on echo. Given patient was hemodynamically unstable she was transferred to [facility]
Coronary artery disease/STEMI with Vfib arrest/ischemic cardiomyopathy
-Peak troponin 35.4
-Status post left main 4.0 x 12 mm [place] drug-eluting stent (09/23/2024) with Impella support
-Impella removed 09/24/2024; Extubated 09/25/2024. Weaned off Pressors 09/25/24
-Continue dual antiplatelet therapy with aspirin and Plavix
-Will eventually need GDMT with beta-shoshana and CHRISTIANE/ARB once blood pressure allows. Start Toprol 12.5 mg 09/27/2024 in am
-Continue moderate dose atorvastatin, lipids 09/24/2024 TC 85, HDL 30, LDL 35, triglycerides 100
-proBNP was [address]2624, repeated 09/25 and improving 4010; She did get 40 mg IV lasix 09/25. Does not appear to be acutely volume overloaded on exam.
-Villavicencio removed 09/26 and making urine
-Will need repeat echo 2 to 3 months post revascularization
Anemia with admission hemoglobin 8.4, dropped to 7.4. Patient has received 2 units of packed RBCs (1 unit 09/23, 1 unit 09/25). Hemoglobin 9.0; continue to trend
Appreciate PT/OT/speech input. Patient is left lower extremity amputee
-Patient two-person assist and will benefit from skilled rehab.
-Patient currently n.p.o. with clinical signs of dysphagia. Ice chips and sips of water with meds crushed in applesauce. Speech will continue to follow
Plan discussed with patient, patient's daughters, nursing
Progress Note - [facility] Clerk
Subjective
Date of Service: September 26, 2024
Patient seen and examined. Patient's daughter is at bedside. Patient now extubated and off pressors. Reports soreness in her chest but denies chest pain
Objective
Labs:
09/26/24 03:37
Labs
Hgb 9.0 g/dL (12.0-16.0) L D 09/26/24 03:37
Hct 28.1 % (37.0-47.0) L 09/26/24 03:37
Plt Count 117 10^3/uL (130-400) L 09/26/24 03:37
PT 15.2 Sec (11.4-14.6) H 09/23/24 21:49
INR 1.17 09/23/24 21:49
APTT 27.0 Sec (23.4-35.0) 09/24/24 09:29
Sodium 145 mmol/L (135-145) 09/26/24 03:37
Potassium 3.9 mmol/L (3.5-5.1) 09/26/24 03:37
BUN 32 mg/dl (7-17) H 09/26/24 03:37
Creatinine 1.1 mg/dL (0.6-1.0) H 09/26/24 03:37
Glucose 100 mg/dl (70-99) H 09/26/24 03:37
Troponins
09/23/24 09/24/24 09/24/24
14:37 05:36 12:10
Troponin I 16.300 H* 35.400 H* 25.500 H* D
09/25/24
04:16
Troponin I 15.100 H*
Vital Signs and I&O:
Vital Signs
Temp Pulse Resp BP Pulse Ox
98.5 F 85 19 112/52 95
09/26/24 13:00 09/26/24 14:00 09/26/24 14:00 09/26/24 14:00 09/26/24 14:00
Vital Signs
Temp Pulse Resp BP Pulse Ox
98.5 F 85 19 112/52 95
09/26/24 13:00 09/26/24 14:00 09/26/24 14:00 09/26/24 14:00 09/26/24 14:00
Intake & Output
09/24/24 09/25/24 09/26/24 09/27/24
06:59 06:59 06:59 06:59
Intake Total 1587.7 / 1763.8 2311.2 / 2369.2 1170.8 / 1170.8 320 / 320
Output Total 770 / 790 377 / 382 2820 / 2880 315 / 315
Balance 817.7 / 973.8 1934.2 / 1986.2 -1649.2 / -1709.2
Physical Exam
Physical Exam
GEN: No distress, awake, Ox3
HEENT: Facial lacerations with ecchymosis of face, blood blister on nose, supple, anicteric, mmm
LUNGS: Mildly decreased at bases otherwise CTA, no wheezes/rales; wearing high flow oxygen
CV: Reg, S1/S2, no murmur, rub or gallop
ABD: soft, BS+, NT/ND
EXT: Left lower extremity amputee, trace edema right lower extremity
NEURO: Sleepy but follows commands and opens eyes. Appears neurologically intact
SKIN: No rash warm, dry, pink
--- NOTE | 2024-09-26 14:19 | PN.CDI ---
CDI
- -
CDI:
Physician Documentation Request
Admit Date: 09/23/24 18:04
Dear Doctor Kamilah,
Clinical Indicators:
Patient admitted with N STEMI in cardiogenic shock.
09/24 ENT consult, 'Pt seen for persistent bleeding believed to be due to posterior epistaxis as a result of traumatic NG tube placement.Right nasal packing applied...'
09/24 (20:00) RN note, 'Pt having dark bloody oral secretions.'
09/25 PN, 'Anemia'
PRBCs 2 units transfused
Hgb/Hct trend:
09/23/24 09/24/24 09/25/24
16:00 04:02 13:47
Hgb 8.4 L 9.4 L 7.4 L
Hct 25.3 L 27.9 L 22.3 L
Based on the above, could you clarify, in your progress note, which of the following is the most likely type of anemia you are evaluating, monitoring and/or treating?
Acute blood loss anemia
Acute blood loss anemia with chronic anemia (please specify type)
Chronic anemia only (please specify type)
Other
Use of terms such as suspected, likely, concern for, or probable (associated with a specific diagnosis that is being evaluated, monitored, or treated as if it exists) are acceptable and can be coded in the inpatient setting, when documented at the
time of discharge.
Thank you,
Latia Olson RN BSN
CDI Specialist
available via tiger text
Please use your independent medical judgment in providing your response.
--- NOTE | 2024-09-26 15:10 | W.PN.ENT ---
Today's Communication
-
seen at bedside
Impression / Plan
-
packing carefully removed
no bleeding noted after packing removal
Subjective Data
-
packing in place right nare
no active bleeding
Objective Data
-
Vital Signs
Temp Pulse Resp BP Pulse Ox
98.5 F 89 20 117/68 92
09/26/24 13:00 09/26/24 15:00 09/26/24 15:00 09/26/24 15:00 09/26/24 15:00
Intake & Output
09/25/24 09/26/24 09/27/24
06:59 06:59 06:59
Intake:
Oral fluids 200 / 200
IV fluids (Total) 1661.2 / 1719.2 160.8 / 160.8
Fentanyl 110 / 115 20 / 20
KVO 220 / 230 30 / 30
Propofol 279.8 / 292.8
Protonix 20 / 20
Venous KVO 660 / 690 90 / 90
levophed 371.4 / 371.4 7.8 / 7.8
IV piggybacks 650 / 650 510 / 510 120 / 120
Blood Products 250 / 250
Packed red blood cells 250 / 250
Blood Product Amount Infused ( 250 / 250
mL)
Packed Rbc Leukoreduced Unit 250 / 250
[id number]
Output:
Urine, Villavicencio 377 / 382 2820 / 2880 315 / 315
Lab Results
09/26/24 03:37
PT 15.2 Sec (11.4-14.6) H 09/23/24 21:49
INR 1.17 09/23/24 21:49
APTT 27.0 Sec (23.4-35.0) 09/24/24 09:29
Calcium 8.1 mg/dl (8.4-10.2) L 09/26/24 03:37
Phosphorus 5.1 mg/dl (2.5-4.5) H 09/26/24 03:37
Magnesium 2.1 mg/dl (1.6-2.3) 09/26/24 03:37
Total Bilirubin 1.4 mg/dl (0.2-1.3) H 09/26/24 03:37
Direct Bilirubin 0.3 mg/dl (0.0-0.4) 09/25/24 13:47
AST 90 U/L (14-36) H 09/26/24 03:37
ALT 62 U/L (0-35) H 09/26/24 03:37
Alkaline Phosphatase 70 U/L (38-126) 09/26/24 03:37
Triglycerides 100 mg/dl (10-149) 09/24/24 04:02
LDL Cholesterol, Calc 35 mg/dl 09/24/24 04:02
VLDL Cholesterol, Calc 20 mg/dl (0-30) 09/24/24 04:02
HDL Cholesterol 30 mg/dl 09/24/24 04:02
Physical Exam
-
balloon packing in place right nose
no active bleeding
Chest: Clear
Respiratory: Clear
Data Reviewed
-
Radiology Results: Report Reviewed
[2024-09-26 17:40] LABS: Glucose - Point of Care 82 mg/dl (70-99)
[2024-09-26 17:48] LABS: Hematocrit 23.5 % (37.0-47.0); Hemoglobin 7.7 g/dL (12.0-16.0)
--- NOTE | 2024-09-26 18:00 | PTCARENOTE ---
Physician updated to lab results, orders given. Patient resting comfortably, VSS, weaning O2 supplementation as needed.
[2024-09-26] MEDS: LASIX 40 MG IV (18:20)
--- NOTE | 2024-09-26 20:45 | PTCARENOTE ---
Assumed care of patient at 1900. Pt downgraded to IMU earlier in the day. Pt SR on monitor. VS stable. Pt with blood infusing to right midline. Purwick with large amt of clear yellow urine. Pt with no c/o at this time.
--- NOTE | 2024-09-26 21:12 | PTCARENOTE ---
Blood finished infusing. No s/s of any reactions. Vitals remain stable.
[2024-09-26] MEDS: XALATAN OPHTHALMIC SOLUTION 1 DROP BOTH EYES (22:11)
[2024-09-26 23:32] LABS: Glucose - Point of Care 93 mg/dl (70-99)
[2024-09-27] VITALS (32 sets, daily range): BP systolic 73–139; BP diastolic 35–97; PULSE 82; O2SAT 92
[2024-09-27 05:05] LABS: Hematocrit 32.5 % (37.0-47.0); Hemoglobin 10.7 g/dL (12.0-16.0); Mean Corp Hgb Conc. 32.9 g/dL (33.0-37.0); Mean Corpuscular Hgb 31.8 pg (27.0-31.0); Mean Corpuscular Volume 96.4 fL (81.0-99.0); Mean Platelet Volume 10.9 fL (7.4-10.4); Platelet Count 144 10^3/uL (130-400); Red Blood Cell Count 3.37 10^6/uL (4.20-5.40); Red Cell Dist. Width 15.5 % (11.5-14.5); White Blood Cell Count 10.5 10^3/uL (4.8-10.8)
[2024-09-27 05:21] LABS: ALT (SGPT) 51 U/L (0-35); AST (SGOT) 61 U/L (14-36); Albumin 2.8 g/dl (3.5-5.0); Alkaline Phosphatase 83 U/L (38-126); Blood Urea Nitrogen 28 mg/dl (7-17); Calcium 8.2 mg/dl (8.4-10.2); Carbon Dioxide 26 mmol/L (22-30); Chloride 108 mmol/L (98-107); Estimated Creatinine Clearance 36 ml/min; Glucose 77 mg/dl (70-99); Iron 61 ug/dl (37-170); Phosphorus 3.7 mg/dl (2.5-4.5); Potassium 3.2 mmol/L (3.5-5.1); Sodium 145 mmol/L (135-145); Total Protein 5.1 g/dl (6.3-8.2); eGFR 49.86
[2024-09-27] MEDS: UNASYN IV (05:29)
[2024-09-27 05:31] LABS: Percent Saturation 25 % (20-50); Total Iron Binding Capacity 238 ug/dl (265-497)
[2024-09-27 05:42] LABS: Glucose - Point of Care 84 mg/dl (70-99)
[2024-09-27] MEDS: NOVOLOG FLEXPEN-LOW RESISTANCE SC (05:47)
--- NOTE | 2024-09-27 05:47 | PTCARENOTE ---
Rec'd pt in my care at 2300. Pt was awake,alert oriented;[place]. Non productive cough heard throughout the night. IS 1000. Lungs with few rales in left base and some exp wheezing. O2 at 4lit mid flow with sats 89-92%. Sinus on telemetry with upper [facility] pac's
and one quick run of svt at 0418. tolerating po ice chips. am labs sent h/h improved to 10.7/32.5. K+ down to 3.2. KATHY Galvan made aware. K+ Iv ordered. OOB at present after CHG bath-2 person assist. call vazquez within reach.
[2024-09-27 05:56] LABS: Ferritin 56.4 ng/ml (11.1-264.0)
[2024-09-27] MEDS: KCL 270 MEQ IV (06:01)
[2024-09-27 06:27] LABS: Folate 18.4 ng/ml (2.76-20); Vitamin B12 254 pg/ml (239-931)
[2024-09-27] MEDS: PROTONIX IV 40 MG IV (08:25)
[2024-09-27] MEDS: NSS (PRESERVATIVE FREE) 10 ML IV (08:25)
[2024-09-27] MEDS: LIPITOR 40 MG PO (08:25)
[2024-09-27] MEDS: LOW STRENGTH ASPIRIN 81 MG PO (08:25)
[2024-09-27] MEDS: PLAVIX 75 MG PO (08:25)
[2024-09-27] MEDS: MIRALAX TUBE (08:25)
[2024-09-27] MEDS: TIMOPTIC 0.5% OPHTHALMIC SOLUTION 1 DROP OPHTH ×2 (08:26→20:18)
[2024-09-27] MEDS: TYLENOL 650 MG PO ×2 (08:26→18:39)
--- NOTE | 2024-09-27 08:30 | PTCARENOTE ---
Patient received from therapist respiratory RN; AAOx3, responds to RN spontaneously and follows commands; VSS; SR with PAC's on monitor; Doppler right DP, right PT, left popliteal, left brachial pulses; Lungs diminished throughout and crackles in left base;
94-98% on 4L Midflow cannula; IS 1500 ml; Frequent moist, nonproductive cough; Normoactive BS; Purewick in place draining sandra, clear urine; Surgical sites intact; #22 right forearm and right arm midline; Patient complains of 3/10 generalized body
aches - PRN PO Tylenol given accordingly; See nursing documentation for further details.
--- NOTE | 2024-09-27 09:04 | W.PN.HOSP.TC ---
Today's Communication/Plan
-
stable for downgrade to IVU
low dos midodrine, once albumin bolus
diuresis as per cardio
unasyn de-escalated to Augmentin
wean O2 as tolerated
PT/OT
Assessment / Plan
Assessment / Plan
Physical Exam
General: no acute distress, appears relatively comfortable
HEENT: Significant Bruising Ecchymosis around face healing
Pulm: Clear to auscultation b/l
Cardio: sinus tachy
Abd/pelvis: soft bowel sounds present
Ext: s/p left BKA, cool right foot
Neuro: Awake alert conversant
IMPRESSION:
84F former smoker LLE BKA CVA HTN asymptomatic carotid stenosis b/l, subclavian steal syndrome, vertebral artery aneurysm transferred from [facility] due to concern NSTEMI acute HFrEF. Originally patient was admitted to [place] following
mechanical fall resulting in Left Radial Fracture. S/P ORIF patient developed dyspnea chest tightness troponin elevation concerning for NSTEMI with associate ECHO noting reduced EF. Transferred here for cath, patient was noted to have severe CAD,
developed ventricular fibrillation and ultimately required intubation for airway protection. Stent was placed in left main in process. Patient subsequently admitted to CVICU on amio and nitro gtt with impella. NGT tube was complicated with
epistaxis so OG tube was placed instead. Patient since improved, extubated, downgraded to IMU.
PLAN:
#NSTEMI
#Multivessal CAD
#Left Main Disease s/p stent placement
#Vfib
#HTN
#Shock suspect cardiogenic
#Acute HFrEF
CVICU admit since improved stable for downgrade IMU 09/26/24
briefly treated with amio and nitro in lab animal technologist
Impella completed as per cardio
weaned off Levophed
Troponin trended to peak 35.400
asa plavix
cardio eval appreciated
daily weights I/O
Sadu discontinued, passed trial of void 09/26/24
diuresis as necessary per cardio
Monitor and replete electrolytes goal Mg 2.0 Potassium 4.0
#Ventilator dependent respiratory failure
CXR appreciated possible left lower lobe subsegmental atelectasis and/or small left pleural
[employer] eval appreciated extubated 09/25 to high flow
gradually weaned down to midflow
speech eval appreciated 09/26 continued NPO but cleared for oral meds crushed in pureed, sips of clears, Ice chips
aspiration precautions
#Lactic acidosis
likely 2/2 shock as above
resolved
#Anemia
#Acute blood loss anemia 2/2 epistaxis as below
monitor H&H
transfuse goal >=8 d/t cardiac hx
check B12 Folate Iron studies
Required 3 separate transfusions over the course of hospitalization
Lasix given with transfusions given heart failure
#Epistaxis
ENT eval appreciated
persistent bleeding believed to be due to posterior epistaxis as a result of traumatic NG tube placement.
Right nasal packing applied since removed after 3 days, epistaxis resolved
#Mild Leukocytosis resolved however patient developed Fever in association with tachycardia concerning for possible Sepsis (less likely)
#History concerning for aspiration
Follow Blood cultures NGTD
IV Tylenol once for fever, since resolved
Empiric Unasyn de-escalated to Augmentin
#Hx HTN
#Hypotension
hold home antihypertensive d/t hypotension/shock as above
Low dose midodrine started
once Albumin bolus
#Hyperglycemia resolved
A1c 5.5
sliding scale completed
#Mild NELLI vs CKD 3 (most likely)
monitor renal function
possibly baseline Cr 1.2-1.1
avoid nephrotoxic agents as possible
Significant hx PAD, vascular dz
HX CVA
Lt BKA
asymptomatic carotid stenosis b/l
subclavian steal syndrome
PT/OT appreciated Acute Rehab
dvt ppx SCD
gi ppx Protonix
Full Code
Medically stable for downgrade to IVU
Discussed with patient and patient's [id number] Soha at bedside
I spent a total of 50 minutes with the patient or on the floor. More than 50% of this time involved counseling and coordination of care.
Anticipated Discharge: 24 - 48 hours
Subjective/Interval History
-
Date of Service: September 27, 2024
weaned down to 3L. Cleared to resume regular diet and tolerating. Overall exhibiting significant improvement in clinical course.
Objective Data
-
Labs:
Laboratory Results
09/27/24
04:43
WBC 10.5
Hgb 10.7 L D
Hct 32.5 L
Plt Count 144 D
Sodium 145
Potassium 3.2 L
Chloride 108 H
Carbon Dioxide 26
BUN 28 H
Creatinine 1.1 H
Glucose 77
Calcium 8.2 L
Total Bilirubin 2.0 H
AST 61 H
ALT 51 H
Alkaline Phosphatase 83
Vital Signs:
Vital Signs
Temp Pulse Resp BP Pulse Ox
98.7 F 94 17 139/97 95
09/27/24 07:00 09/27/24 08:15 09/27/24 08:15 09/27/24 08:00 09/27/24 08:15
I&O
09/26/24 09/27/24 09/28/24
06:59 06:59 06:59
Intake Total 1170.8 / 1170.8 1260 / 1260
Output Total 2820 / 2880 3265 / 3265
Balance -1649.2 / -1709.2 -2004
--- NOTE | 2024-09-27 09:06 | W.PN.PUL3 ---
Today's Communication / Plan
-
No events ON, weaned down to 4L NC, she is still working on her IS (<500)
Packing removed by ENT
Encouraged OOB to chair, PT/IS
Further cardiac management per team
She is transferred to IMU, doing well
We will sign off at this time, please call with questions
Assessment
-
Patient is an 84-year-old female with previous history of CVA, hypertension, carotid stenosis, subclavian steal syndrome, vertebral artery aneurysm, former smoker transferred from [facility] following admission for mechanical fall resulting
in left radial fracture and facial contusions with epistaxis. Underwent ORIF and subsequently developed shortness of breath, chest tightness, troponin elevation was noted. She had been ruled in for NSTEMI and had comorbid acute heart failure with
reduced ejection fraction. Transferred to for cardiac catheterization, developed hypotension, and VF arrest with brief CPR and 1 shock given, required intubation and Impella placement in the Physician Office Specialist. She was deemed nonsurgical by CTS, stent
placed by Dr Carty. Patient is admitted to CVICU on low dose levophed and stabilized.
VF arrest s/p shock/CPR
Acute hypoxic respiratory failure s/p intubation
Acute NSTEMI s/p LHC and stent, non surgical candidate
L radial fracture s/p ORIF 09/20/24 after mechanical fall
Ischemic cardiomyopathy EF 35%
Acute HFrEF exacerbation
Anemia, unclear chronic/acute, no baseline
Metabolic acidosis
NELLI creat 1.1-1.2, unknown baseline
Hyperglycemia
Conditions present DYE BLENDER
Bilateral carotid artery stenosis
Right Subclavian steal syndrome
CVA
HTN
LLE BKA
PVD h/o stent
Former smoker, suspect COPD
Plan
Intubated for hypoxemia, extubated 09/25/24, doing well
Currently weaned to 4L NC, continue to wean further to off
Prior history of lung disease: former smoker, suspect COPD, but no prior PFTs for review
CXR/CT reviewed indicating volume overload
Epistaxis s/p ENT eval--posteriorly packed at bedside 09/24--removed
Encouraged IS, ambulation/OOB
Hemodynamically stable, off pressors >24 hours
Cardiac history reviewed--extensive, as noted above s/p intervention
ECHO reviewed indicating rEF 30-35%, eventually diuresis when can tolerate
Cards following
Monitor on telemetry
Diuresis per team
Advance diet as tolerated
Aspiration precautions, HOB > 30 degrees
Speech therapy eval can be considered if at elevated risk
Fever noted, possible PNA
Unasyn IV added
Culture neg to date, finite course x 5 days
Follow fever trend, WBC count
Transferred to IMU
PT/OT ongoing, eval for rehab needs
Daughter at bedside
Diagnostic Data
Chest X-Ray: 09/24/24- Endotracheal tube with tip in trachea above the víctor. No pneumothorax. Left hemidiaphragm is obscured suggesting left lower lobe subsegmental atelectasis and/or small left pleural effusion, unchanged. Pulmonary vascularity
at least top normal.
CT Scan:
Echo: 09/23/24- 1. Limited echocardiogram to assess LV function 2. Left ventricle: Moderately reduced systolic function with a visually estimated ejection fraction of 30-35%. There is akinesis of the anterior and inferoseptum to apex
anteroseptum and inferoseptum from the midportion to the apex 3. No pericardial effusion
LHC 09/23/24- HEMODYNAMIC FINDINGS (mmHg):
RA(a,v,m): 18, 14, 13
RV(s/d,EDP): 55/11, 20
PA(s/d/m): 50/31, 35
PCWP(a,v,m): 24, 28, 24
LV(s/d,EDP): 98/28, 44
Ao(s/d,m): 98/54, 69
Oxygen Saturations (mg/dl):
PA: 58% on 4 L of oxygen by nasal cannula
LV: 93% on 4 L of oxygen by nasal cannula
Cardiac Output/Index (l/min / l/min/m2):
Estimated Yolanda Method: 4.3 /2.4
1: Successful left main stenting with Impella CP hemodynamic support in the setting of cardiogenic shock, respiratory failure and cardiac arrest with ventricular fibrillation requiring defibrillation and pressor support.
PFT's:
Reports and relevant images were personally reviewed.
Total time spent on this encounter __51__ minutes which includes review of history, physical exam, medications, laboratory data, personal review of imaging, extensive review of outpatient records, discussion with care team and respiratory therapy.
Subjective Data
-
Date of Service:
Date of Service: September 27, 2024
Chief Complaint: Pulmonary Follow Up
Subjective:
Doing well, O2 decreased to 4L NC
Sitting in chair, no new complaints
Objective Data
Data Reviewed
Vital Signs / I&O / Oxygen:
Vital Signs
Temp Pulse Resp BP Pulse Ox
98.7 F 94 17 139/97 95
09/27/24 07:00 09/27/24 08:15 09/27/24 08:15 09/27/24 08:00 09/27/24 08:15
Intake and Output
09/26/24 09/27/24 09/28/24
06:59 06:59 06:59
Intake Total 1170.8 / 1170.8 1260 / 1260
Output Total 2820 / 2880 3265 / 3265
Balance -1649.2 / -1709.2 -2004 /
SaO2 [CPAP/PSV] 92
SaO2 [A/C] 92
SaO2 95
Nasal Cannula flow liters per 4
minute
Physical Exam
General: Comfortable and Other (NAD)
HEENT: Normocephalic, Anicteric and Other (facial contusions noted)
Cardiovascular: S1-S2, Regular Rhythm, Peripheral Edema (RLE, trace) and Other (L BKA)
Respiratory: Clear and Non-Labored Respirations
GI: Soft, Non Distended and Non Tender
Neurology: Awake, Alert, Oriented and No Motor Deficits
Skin: Warm, Dry and Good Color
Labs/Micro/Reports
Lab Data
09/27/24 04:43
09/27/24 04:43
Microbiology
09/25/24 13:47 Blood/Venous Blood Culture - Preliminary
No Growth in 24 hours- Final report to follow
09/25/24 09:41 Blood/Venous Blood Culture - Preliminary
No Growth in 24 hours- Final report to follow
09/25/24 12:29 Sputum Respiratory Culture - Preliminary
Usual Respiratory Jennifer
09/25/24 12:29 Sputum Gram Stain - Preliminary
--- NOTE | 2024-09-27 09:20 | PTOTSP ---
Speech Language Pathology
Pt seen for dysphagia tx. Now on NC, 4LPM. P.O. trials of puree, regular solids, and thin liquids provided. Adequate mastication, bolus formation, and A-P transit noted with no oral residue. No overt signs of aspiration, and pt denied any globus
sensation. Sp02 remained at 94% throughout session.
Recommend:
(1) Initiate regular solids/thin liquids
(2) Aspiration precautions: sit upright, slow rate, single sips
(3) Meds as tolerated
(4) Will consider instrumental swallowing assessment if any difficulty noted with P.O. intake
(5) LOCATION MANAGER to continue to follow
[2024-09-27] MEDS: AUGMENTIN 875 MG/125 MG 1 TABLET PO ×2 (11:42→20:17)
[2024-09-27] MEDS: CYANOCOBALAMIN 1000 MCG IM (11:51)
[2024-09-27] MEDS: KCL 40 MEQ PO (11:52)
[2024-09-27] MEDS: ProAmatine 2.5 MG PO ×3 (11:52→17:27)
[2024-09-27] MEDS: FLEXBUMIN 100 IV (12:04)
--- NOTE | 2024-09-27 12:30 | PTCARENOTE ---
Patient upgraded from NPO to diet by ST; IV Unasyn switched to PO Augmentin; IM Cyanocobalamin given after results of anemia studies; PO Potassium ordered and given; Patient with loose BM on BSC; BP low 70's-80's/40's-50's but patient asymptomatic -
MD Triana notified and PO Midodrine TID and IV Albumin ordered and given.
--- NOTE | 2024-09-27 15:57 | W.PN.CARDCBS ---
Today's Communication / Plan
-
Supportive post SD care
Impression / Plan
-
PCP: Chantel Montelongo DO
CDY: Jimmy Meraz DO (new to )
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
emergency room 09/19/2024 for evaluation after a mechanical fall while walking her dog. � LOC. She was down outside for approx. 3 hrs and upon arrival her Temp was 94. She was found to have a L intra-articular distal radius fracture and underwent
ORIF of the L radius on 09/20/2024. EKG on admission showed ST with PVC�s. Thereafter hemodynamically unstable, transferred to [facility] where cardiac catheterization revealed critical ostial left main disease with cardiogenic shock necessitating
Impella placement and left main PCI.
PMH: Bilateral carotid disease, right subclavian steal, history of CVA, hypertension, hypercholesterolemia, left BKA, prior peripheral arterial stents
Current medications: Clopidogrel 75 mg a day, aspirin 81 mg a day, atorvastatin 40, pantoprazole, nor epi
Impression:
Transfer from [facility] to 09/23/2024 after unwitnessed fall while walking her dog
Cardiogenic shock with in hospital VF arrest requiring intubation 09/23/2024
Critical ostial left main disease on cardiac catheterization
status post left main CAREN 09/23/2024 with Impella support
Removal of Impella device 09/24/2024
post ORIF L radius 09/20/24 after mechanical fall
Ischemic cardiomyopathy EF 35%, 45-50% on repeat echo with Impella support
bilateral carotid artery stenosis
Right Subclavian steal syndrome
CVA
HTN
LLE BKA
PVD h/o stent
Cardiac catheterization 09/23/2024: LM 80 to 90% ostial stenosis status post 4.0 x 12 mm [place] drug-eluting stent. LAD: Patent. Left circumflex moderate nonobstructive luminal irregularities. RCA: Patent.
HEMODYNAMIC FINDINGS (mmHg):RA(a,v,m): 18, 14, 13; RV(s/d,EDP): 55/11, 20; PA(s/d/m): 50/31, 35; PCWP(a,v,m): 24, 28, 24; LV(s/d,EDP): 98/28, 44; Ao(s/d,m): 98/54, 69;
Oxygen Saturations (mg/dl): PA: 58% on 4 L of oxygen by nasal cannula; LV: 93% on 4 L of oxygen by nasal cannula
Cardiac Output/Index (l/min / l/min/m2): Estimated Yolanda Method: 4.3 /2.4
Echo 09/24/2024: EF 45-50%, akinesis of mid to apical inferoseptal and anteroseptal and apical brothers, anterior hypokinesis, Impella in place, valves not assessed in detail, RV appeared normal
Plan:
Presented as transfer from [facility] to [facility] 09/23/2024 with concern for NSTEMI following unwitnessed mechanical fall at home and was found down on the ground for at least 4 hours. Patient had wrist fracture and underwent left radial ORIF
09/20/2024. Postoperatively patient developed chest pain, shortness of breath and elevated troponin and was found to have reduced ejection fraction on echo. Given patient was hemodynamically unstable she was transferred to [facility]
Coronary artery disease/STEMI with Vfib arrest/ischemic cardiomyopathy
-Peak troponin 35.4
-Status post left main 4.0 x 12 mm [place] drug-eluting stent (09/23/2024) with Impella support
-Impella removed 09/24/2024; Extubated 09/25/2024. Weaned off Pressors 09/25/24
-Groin site intact without hematoma
-Continue dual antiplatelet therapy with aspirin and Plavix
-Will eventually need GDMT with beta-shoshana and CHRISTIANE/ARB once blood pressure allows. Started Toprol 12.5 mg 09/27/2024 in am
-Continue moderate dose atorvastatin, lipids 09/24/2024 TC 85, HDL 30, LDL 35, triglycerides 100
-proBNP was 51498, repeated 09/25 and improving 4010; She did get 40 mg IV lasix 09/25. Does not appear to be acutely volume overloaded on exam.
-Villavicencio removed 09/26 and making urine
-Will need repeat echo 2 to 3 months post revascularization
Anemia with admission hemoglobin 8.4, dropped to 7.4. Patient has received 2 units of packed RBCs (1 unit 09/23, 1 unit 09/25). Hemoglobin 9.0; continue to trend
Appreciate PT/OT/speech input.
Progress Note - Production Sorter
Subjective
Date of Service: September 27, 2024
Seen and examined. No chest pain or pressure.
Objective
Labs:
09/27/24 04:43
Labs
Hgb 10.7 g/dL (12.0-16.0) L D 09/27/24 04:43
Hct 32.5 % (37.0-47.0) L 09/27/24 04:43
Plt Count 144 10^3/uL (130-400) D 09/27/24 04:43
PT 15.2 Sec (11.4-14.6) H 09/23/24 21:49
INR 1.17 09/23/24 21:49
APTT 27.0 Sec (23.4-35.0) 09/24/24 09:29
Sodium 145 mmol/L (135-145) 09/27/24 04:43
Potassium 3.2 mmol/L (3.5-5.1) L 09/27/24 04:43
BUN 28 mg/dl (7-17) H 09/27/24 04:43
Creatinine 1.1 mg/dL (0.6-1.0) H 09/27/24 04:43
Glucose 77 mg/dl (70-99) 09/27/24 04:43
Troponins
09/25/24
04:16
Troponin I 15.100 H*
Vital Signs and I&O:
Vital Signs
Temp Pulse Resp BP Pulse Ox
97.6 F 84 14 95/60 93
09/27/24 12:00 09/27/24 15:00 09/27/24 15:00 09/27/24 15:00 09/27/24 14:15
Vital Signs
Temp Pulse Resp BP Pulse Ox
97.6 F 84 14 95/60 93
09/27/24 12:00 09/27/24 15:00 09/27/24 15:00 09/27/24 15:00 09/27/24 14:15
Intake & Output
09/25/24 09/26/24 09/27/24 09/28/24
06:59 06:59 06:59 06:59
Intake Total 2311.2 / 2369.2 1170.8 / 1170.8 1260 / 1260 1065 / 1065
Output Total 377 / 382 2820 / 2880 3265 / 3265
Balance 1934.2 / 1986.2 -1649.2 / -1709.2 -2004 / 1065 / 1065
Physical Exam
Physical Exam
GEN: No distress, awake, Ox3
HEENT: Facial lacerations with ecchymosis of face, blood blister on nose, supple, anicteric, mmm
LUNGS: Mildly decreased at bases otherwise CTA, no wheezes/rales
CV: Reg, S1/S2, no murmur, rub or gallop
ABD: soft, BS+, NT/ND
EXT: Left lower extremity amputee, trace edema right lower extremity
--- NOTE | 2024-09-27 16:30 | PTCARENOTE ---
Patient OOB in chair throughout shift; Patient bladder scanned for 370 ml of urine - voided 200 ml of sandra urine in Purewick. H&H due at 1800.
[2024-09-27 17:34] LABS: Hematocrit 30.2 % (37.0-47.0); Hemoglobin 9.7 g/dL (12.0-16.0)
[2024-09-27] MEDS: LIDOCAINE 4% PATCH 1 PATCH TOPICAL (20:17)
--- NOTE | 2024-09-27 20:30 | PTCARENOTE ---
Assumed care of patient at 1900. Patient found OOB in chair prior to assessment. Heavy assistx2 back to bed without incident. Upon assessment patient is AOx4, follows commands appropriately, moves all extremities. Patient is [place] wears hearing aids
at home not present at the time. Lung sounds have fine crackles in the left base otherwise clear, saO2 91% on 3L via midflow NC, patient has moist occasionally productive cough with yellow sputum. Heart sounds are audible, patient is SR with PAC,
all pulses present with doppler, patient has +1 bilateral hand edema. Patient has active BS in all four quadrants, patient is incontinent of urine and PW is in place draining sandra yellow urine. Patient has bilateral groin puncture approx KARL
ecchymotic around site and generalized scabbed abrasion and bruises on face 2/2 fall prior to admission. Patient has R midline and R hand 22G. Given lidocaine patch on R shoulder for c/o pain. VSS. No other complaints at this time call vazquez within
reach.
[2024-09-27] MEDS: XALATAN OPHTHALMIC SOLUTION 1 DROP BOTH EYES (23:05)
[2024-09-28] VITALS (26 sets, daily range): BP systolic 94–145; BP diastolic 50–107; PULSE 86–88; O2SAT 92; BMI 25.6
--- NOTE | 2024-09-28 | PTCARENOTE ---
Patient reassessed. VSS. Remains SR on the monitor. No complaints of pain. Call vazquez within reach.
[2024-09-28 04:45] LABS: Hematocrit 30.6 % (37.0-47.0); Hemoglobin 9.8 g/dL (12.0-16.0); Mean Corpuscular Hgb 31.3 pg (27.0-31.0); Mean Corpuscular Volume 97.8 fL (81.0-99.0); Platelet Count 157 10^3/uL (130-400); Red Blood Cell Count 3.13 10^6/uL (4.20-5.40); Red Cell Dist. Width 15.8 % (11.5-14.5); White Blood Cell Count 8.5 10^3/uL (4.8-10.8)
--- NOTE | 2024-09-28 06:00 | PTCARENOTE ---
Patient reassessed. VSS. Remains SR on the monitor. No c/o pain. AM labs obtained. Assisted OOB to chair without incident. AM hygiene care provided. Call vazquez within reach.
[2024-09-28 06:19] LABS: ALT (SGPT) 39 U/L (0-35); AST (SGOT) 46 U/L (14-36); Albumin 3.1 g/dl (3.5-5.0); Alkaline Phosphatase 67 U/L (38-126); Blood Urea Nitrogen 33 mg/dl (7-17); Carbon Dioxide 26 mmol/L (22-30); Chloride 107 mmol/L (98-107); Estimated Creatinine Clearance 33 ml/min; Glucose 93 mg/dl (70-99); Magnesium 2.1 mg/dl (1.6-2.3); Phosphorus 3.5 mg/dl (2.5-4.5); Potassium 3.8 mmol/L (3.5-5.1); Sodium 142 mmol/L (135-145); Total Bilirubin 1.6 mg/dl (0.2-1.3); Total Protein 5.1 g/dl (6.3-8.2); eGFR 44.91
--- NOTE | 2024-09-28 07:45 | W.PN.HOSP.TC ---
Today's Communication/Plan
-
Downgrade to IVU when Bed available
wean O2 supplementation as tolerated
Midodrine tapered
Pain control
PT/OT, discharge planning Acute Rehab
optimization cardiac medications as per Cardio
follow cultures
Augmentin
Assessment / Plan
Assessment / Plan
Physical Exam
General: no acute distress, appears relatively comfortable
HEENT: Bruising Ecchymosis around face healing
Pulm: Clear to auscultation b/l
Cardio: S1/S2 NSR
Abd/pelvis: soft bowel sounds present
Ext: s/p left BKA, cool right foot, LUE cast in place
Neuro: Awake alert conversant
IMPRESSION:
84F former smoker LLE BKA CVA HTN asymptomatic carotid stenosis b/l, subclavian steal syndrome, vertebral artery aneurysm transferred from [facility] due to concern NSTEMI acute HFrEF. Originally patient was admitted to [facility] following
mechanical fall resulting in Left Radial Fracture. S/P ORIF patient developed dyspnea chest tightness troponin elevation concerning for NSTEMI with associate ECHO noting reduced EF. Transferred here for cath, patient was noted to have severe CAD,
developed ventricular fibrillation and ultimately required intubation for airway protection. Stent was placed in left main in process. Patient subsequently admitted to CVICU on amio and nitro gtt with impella. NGT tube was complicated with
epistaxis so OG tube was placed instead. Patient since improved, extubated, downgraded to IMU.
PLAN:
#NSTEMI
#Multivessal CAD
#Left Main Disease s/p stent placement
#Vfib
#HTN
#Shock suspect cardiogenic
#Acute HFrEF
CVICU admit since improved stable for downgrade IMU 09/26/24
briefly treated with amio and nitro in excavation laborer
Impella completed as per cardio
weaned off Levophed
Troponin trended to peak 35.400
asa plavix
cardio eval appreciated
Villavicencio discontinued, passed trial of void 09/26/24
daily weights I/O fluid restriction
diuresis as necessary per cardio
Monitor and replete electrolytes goal Mg 2.0 Potassium 4.0
Scheduled potassium supplementation 20 mEQ daily (hold if K>5)
#Ventilator dependent respiratory failure
CXR appreciated possible left lower lobe subsegmental atelectasis and/or small left pleural
Wafer Production Lead Worker eval appreciated extubated 09/25 to high flow
gradually weaned down to midflow
speech eval appreciated 09/26 continued NPO but cleared for oral meds crushed in pureed, sips of clears, Ice chips
aspiration precautions
#Lactic acidosis
likely 2/2 shock as above
resolved
#Anemia
#Acute blood loss anemia 2/2 epistaxis as below
monitor H&H
transfuse goal >=8 d/t cardiac hx
check B12 Folate Iron studies
Required 3 separate transfusions over the course of hospitalization
Lasix given with transfusions given heart failure
#Epistaxis
ENT eval appreciated
persistent bleeding believed to be due to posterior epistaxis as a result of traumatic NG tube placement.
Right nasal packing applied since removed after 3 days, epistaxis resolved
#Mild Leukocytosis resolved however patient developed Fever in association with tachycardia concerning for possible Sepsis (less likely)
#History concerning for aspiration
Follow Blood cultures NGTD and sputum culture repeated
IV Tylenol once for fever, since resolved
Empiric Unasyn de-escalated to Augmentin
#Hx HTN
#Hypotension
hold home antihypertensive d/t hypotension/shock as above
Low dose midodrine started once Albumin bolus, BP since improved
midodrine tapered to BID with holding parameter SBP>100 or HR<55
#Hyperglycemia resolved
A1c 5.5
sliding scale completed
#CKD 3
monitor renal function
Cr baseline Cr 1.2-1.1
avoid nephrotoxic agents as possible
#Right Shoulder pain
#hx fall originally admitted to [facility] and treated for Lt radial fx s/p ORIF before transfer here for NSTEMI as above
Shoulder X-ray noted no acute abn's, advance arthritis noted
lidocaine patch
pain control
cont PT/OT
Significant hx PAD, vascular dz
HX CVA
Lt BKA
asymptomatic carotid stenosis b/l
subclavian steal syndrome
PT/OT appreciated Acute Rehab
dvt ppx SCD
gi ppx Protonix
Full Code
Remains Medically stable for downgrade to IVU awaiting bed
Discussed with patient and patient's daughters Ddii and Jayna
I spent a total of 50 minutes with the patient or on the floor. More than 50% of this time involved counseling and coordination of care.
Anticipated Discharge: 24 - 48 hours
Subjective/Interval History
-
Date of Service: September 28, 2024
No acute distress sitting up comfortably in chair. Daughters Didi and Jayna present during evaluation. Overall patient appears well weaning down on nasal cannula supplementation to 2L. Reports Right shoulder pain and productive cough.
Tolerating diet
Objective Data
-
Labs:
Laboratory Results
09/28/24
04:08
WBC 8.5
Hgb 9.8 L
Hct 30.6 L
Plt Count 157
Sodium 142
Potassium 3.8
Chloride 107
Carbon Dioxide 26
BUN 33 H
Creatinine 1.2 H
Glucose 93
Calcium 8.0 L
Total Bilirubin 1.6 H
AST 46 H
ALT 39 H
Alkaline Phosphatase 67
Vital Signs:
Vital Signs
Temp Pulse Resp BP Pulse Ox
98.5 F 70 15 130/77 94
09/28/24 03:02 09/28/24 06:00 09/28/24 06:00 09/28/24 06:00 09/28/24 06:00
I&O
09/27/24 09/28/24 09/29/24
06:59 06:59 06:59
Intake Total 1260 / 1260 1185 / 1185 240 / 240
Output Total 3265 / 3265 400 / 400
Balance -2004 / -2004 785 / 785 240 / 240
--- NOTE | 2024-09-28 08:00 | PTCARENOTE ---
PT AAOx4 w/ complaints of pain in R shoulder. xrays confirmed no abnormalities. 3L highflow nc, decreased at the bases. NS VSS, BP 12/ @ 0900, purewick in place, midline and IV's WNL. see worklist for detailed assessment.
[2024-09-28] MEDS: TYLENOL 650 MG PO ×2 (08:16→17:28)
[2024-09-28] MEDS: AUGMENTIN 875 MG/125 MG 1 TABLET PO ×2 (08:53→19:55)
[2024-09-28] MEDS: NSS (PRESERVATIVE FREE) 10 ML IV (08:58)
[2024-09-28] MEDS: MIRALAX TUBE (08:58)
[2024-09-28] MEDS: PLAVIX 75 MG PO (08:58)
[2024-09-28] MEDS: PROTONIX IV 40 MG IV (08:58)
[2024-09-28] MEDS: VITAMIN B-12 1000 MCG PO (08:58)
[2024-09-28] MEDS: LOW STRENGTH ASPIRIN 81 MG PO (08:58)
[2024-09-28] MEDS: LIPITOR 40 MG PO (08:58)
[2024-09-28] MEDS: TIMOPTIC 0.5% OPHTHALMIC SOLUTION 1 DROP OPHTH ×2 (08:59→19:56)
[2024-09-28] MEDS: ProAmatine 2.5 MG PO (09:20)
--- NOTE | 2024-09-28 12:00 | PTCARENOTE ---
1L nc, no change in previous assessment
[2024-09-28] MEDS: ProAmatine PO (15:20)
--- NOTE | 2024-09-28 17:00 | PTCARENOTE ---
PT on room air low 90's, no other change from previous assessment
--- NOTE | 2024-09-28 17:31 | W.PN.CARDCBS ---
Today's Communication / Plan
-
Optimize medical therapy
Continue PT effort
Impression / Plan
-
PCP: Chantel Montelongo DO
CDY: Jimmy Meraz DO (new to pt)
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
emergency room 09/19/2024 for evaluation after a mechanical fall while walking her dog. � LOC. She was down outside for approx. 3 hrs and upon arrival her Temp was 94. She was found to have a L intra-articular distal radius fracture and underwent
ORIF of the L radius on 09/20/2024. EKG on admission showed ST with PVC�s. Thereafter hemodynamically unstable, transferred to [place] where cardiac catheterization revealed critical ostial left main disease with cardiogenic shock necessitating
Impella placement and left main PCI.
PMH: Bilateral carotid disease, right subclavian steal, history of CVA, hypertension, hypercholesterolemia, left BKA, prior peripheral arterial stents
Current medications: Clopidogrel 75 mg a day, aspirin 81 mg a day, atorvastatin 40, pantoprazole, nor epi
Impression:
Transfer from [facility] to 09/23/2024 after unwitnessed fall while walking her dog
Cardiogenic shock with in hospital VF arrest requiring intubation 09/23/2024
Critical ostial left main disease on cardiac catheterization
status post left main CAREN 09/23/2024 with Impella support
Removal of Impella device 09/24/2024
post ORIF L radius 09/20/24 after mechanical fall
Ischemic cardiomyopathy EF 35%, 45-50% on repeat echo with Impella support
bilateral carotid artery stenosis
Right Subclavian steal syndrome
CVA
HTN
LLE BKA
PVD h/o stent
Cardiac catheterization 09/23/2024: LM 80 to 90% ostial stenosis status post 4.0 x 12 mm [place] drug-eluting stent. LAD: Patent. Left circumflex moderate nonobstructive luminal irregularities. RCA: Patent.
HEMODYNAMIC FINDINGS (mmHg):RA(a,v,m): 18, 14, 13; RV(s/d,EDP): 55/11, 20; PA(s/d/m): 50/31, 35; PCWP(a,v,m): 24, 28, 24; LV(s/d,EDP): 98/28, 44; Ao(s/d,m): 98/54, 69;
Oxygen Saturations (mg/dl): PA: 58% on 4 L of oxygen by nasal cannula; LV: 93% on 4 L of oxygen by nasal cannula
Cardiac Output/Index (l/min / l/min/m2): Estimated Yolanda Method: 4.3 /2.4
Echo 09/24/2024: EF 45-50%, akinesis of mid to apical inferoseptal and anteroseptal and apical brothers, anterior hypokinesis, Impella in place, valves not assessed in detail, RV appeared normal
Plan:
Presented as transfer from [facility] to [facility] 09/23/2024 with concern for NSTEMI following unwitnessed mechanical fall at home and was found down on the ground for at least 4 hours. Patient had wrist fracture and underwent left radial ORIF
09/20/2024 complicated by postop STEMI with VF arrest
Coronary artery disease/STEMI with Vfib arrest/ischemic cardiomyopathy
-Peak troponin 35.4
-Status post left main 4.0 x 12 mm [place] drug-eluting stent (09/23/2024) with Impella support
-Impella removed 09/24/2024; Extubated 09/25/2024. Weaned off Pressors 09/25/24
-Groin site intact without hematoma
-Continue dual antiplatelet therapy with aspirin and Plavix
-Blood pressures have improved. Will reduce midodrine to twice daily with hold parameters and wean as able. Start Lopressor and hopefully add lisinopril prior to discharge
-Continue moderate dose atorvastatin, lipids 09/24/2024 TC 85, HDL 30, LDL 35, triglycerides 100
-proBNP was 86967, repeated 09/25 and improving 4010; She did get 40 mg IV lasix 09/25. Does not appear to be acutely volume overloaded on exam.
-Villavicecnio removed 09/26 and making urine
-Will need repeat echo 2 to 3 months post revascularization
Postoperative Anemia with admission hemoglobin 8.4, dropped to 7.4.
-Patient has received 2 units of packed RBCs (1 unit 09/23, 1 unit 09/25).
-Hemoglobin is stable, today 9.8
Traumatic fall with left wrist fracture also complaining of shoulder pain
-Right shoulder x-ray with advanced AC arthritis but no fracture, dislocation or shoulder separation. Patient and family states she had multiple CT scans as part of trauma evaluation at [facility] which are not scanned in computer or
available in chart. Will try to obtain them tomorrow.
Patient will need half-way facility at time of discharge given prior left lower extremity BKA, left wrist fracture status post ORIF and overall deconditioning
Progress Note - Oil Changer
Subjective
Date of Service: September 28, 2024
Seen and examined with multiple family members at bedside. Patient sitting out of bed to a chair and overall states she is feeling better. No chest pain or pressure. She does have some mild shortness of breath with a wet/productive cough. She also
reports swelling of her left BKA which is limiting use of prosthesis
Objective
Labs:
09/28/24 04:08
09/28/24 04:08
Labs
Hgb 9.8 g/dL (12.0-16.0) L 09/28/24 04:08
Hct 30.6 % (37.0-47.0) L 09/28/24 04:08
Plt Count 157 10^3/uL (130-400) 09/28/24 04:08
PT 15.2 Sec (11.4-14.6) H 09/23/24 21:49
INR 1.17 09/23/24 21:49
APTT 27.0 Sec (23.4-35.0) 09/24/24 09:29
Sodium 142 mmol/L (135-145) 09/28/24 04:08
Potassium 3.8 mmol/L (3.5-5.1) 09/28/24 04:08
BUN 33 mg/dl (7-17) H 09/28/24 04:08
Creatinine 1.2 mg/dL (0.6-1.0) H 09/28/24 04:08
Glucose 93 mg/dl (70-99) 09/28/24 04:08
Vital Signs and I&O:
Vital Signs
Temp Pulse Resp BP Pulse Ox
98.8 F 85 18 138/79 92
09/28/24 15:00 09/28/24 16:00 09/28/24 15:00 09/28/24 16:00 09/28/24 16:00
Vital Signs
Temp Pulse Resp BP Pulse Ox
98.8 F 85 18 138/79 92
09/28/24 15:00 09/28/24 16:00 09/28/24 15:00 09/28/24 16:00 09/28/24 16:00
Intake & Output
09/26/24 09/27/24 09/28/24 09/29/24
06:59 06:59 06:59 06:59
Intake Total 1170.8 / 1170.8 1260 / 1260 1185 / 1185 240 / 240
Output Total 2820 / 2880 3265 / 3265 400 / 400 300 / 300
Balance -1649.2 / -1709.2 -2005 / -2005 785 / 785 -60 / -60
Physical Exam
Physical Exam
GEN: No distress, awake, Ox3
HEENT: Facial lacerations with ecchymosis of face, blood blister on nose, supple, anicteric, mmm
LUNGS: Bronchovesicular breath sounds with coarse rhonchi. Wet cough.
CV: Reg, S1/S2, no murmur, rub or gallop
ABD: soft, BS+, NT/ND
EXT: Left lower extremity amputee, No right lower extremity edema
[2024-09-28] MEDS: LIDOCAINE 4% PATCH 1 PATCH TOPICAL (19:56)
--- NOTE | 2024-09-28 20:00 | PTCARENOTE ---
Received pt from [facility]. pt resting comfortably in bed. NSR on monitor. VSS. Pt is AAox4. heart sounds audible, radial, right DP, and left popliteal pulses palpable, trace left leg edema. lungs diminished throughout, course lung sounds throughout,
productive cough, spo2 93 on 2 L high flow NC, pt being treated for pneumonia. hypo active BS x4 quadrants, abdomen, soft non tender. pt voiding clear yellow urine via purewick, on going skin assessments. left below the knee amputation, facial
bruising from fall, right arm limb alert due to midline. PIV and midline maintained. d/c plan for pt is [facility]. call vazquez within reach. will continue to monitor.
[2024-09-28] MEDS: XALATAN OPHTHALMIC SOLUTION 1 DROP BOTH EYES (21:54)
[2024-09-29] VITALS (32 sets, daily range): BP systolic 97–144; BP diastolic 48–104; PULSE 69–74; O2SAT 93–98; BMI 25.6
--- NOTE | 2024-09-29 | PTCARENOTE ---
Pt resting comfortably in bed. NSR on monitor, VSS. pt has yet to void, bladder scanned for 321mls. pt was encouraged to void via purewick. pt stated she was unable at this time. see bladder scan worklist. will continue to monitor.
--- NOTE | 2024-09-29 03:00 | PTCARENOTE ---
pt still unable to void with purewick. pt skink checked. encouraged to void. BS showed 348mls of urine in bladder. will continue to monitor.
[2024-09-29 03:28] LABS: Hematocrit 30.8 % (37.0-47.0); Hemoglobin 10.2 g/dL (12.0-16.0); Mean Corp Hgb Conc. 33.1 g/dL (33.0-37.0); Mean Corpuscular Hgb 32.4 pg (27.0-31.0); Mean Corpuscular Volume 97.8 fL (81.0-99.0); Platelet Count 178 10^3/uL (130-400); Red Blood Cell Count 3.15 10^6/uL (4.20-5.40); Red Cell Dist. Width 15.5 % (11.5-14.5); White Blood Cell Count 8.4 10^3/uL (4.8-10.8)
[2024-09-29 03:51] LABS: ALT (SGPT) 36 U/L (0-35); AST (SGOT) 40 U/L (14-36); Albumin 2.8 g/dl (3.5-5.0); Alkaline Phosphatase 64 U/L (38-126); Blood Urea Nitrogen 22 mg/dl (7-17); Calcium 8.3 mg/dl (8.4-10.2); Carbon Dioxide 27 mmol/L (22-30); Chloride 109 mmol/L (98-107); Estimated Creatinine Clearance 44 ml/min; Glucose 98 mg/dl (70-99); Magnesium 2.2 mg/dl (1.6-2.3); Phosphorus 3.4 mg/dl (2.5-4.5); Potassium 3.8 mmol/L (3.5-5.1); Sodium 142 mmol/L (135-145); Total Bilirubin 1.3 mg/dl (0.2-1.3); eGFR > 60.00
--- NOTE | 2024-09-29 04:00 | PTCARENOTE ---
Pt resting comfortably in bed. NSR on monitor. VSS. lab work drawn and sent. will continue to monitor.
[2024-09-29] MEDS: MIRALAX TUBE (07:35)
[2024-09-29] MEDS: LOW STRENGTH ASPIRIN 81 MG PO (07:45)
[2024-09-29] MEDS: PLAVIX 75 MG PO (07:45)
[2024-09-29] MEDS: LIPITOR 40 MG PO (07:45)
[2024-09-29] MEDS: AUGMENTIN 875 MG/125 MG 1 TABLET PO ×2 (07:45→19:36)
[2024-09-29] MEDS: NSS (PRESERVATIVE FREE) 10 ML IV (07:46)
[2024-09-29] MEDS: PROTONIX IV 40 MG IV (07:46)
[2024-09-29] MEDS: KCL 20 MEQ PO (07:46)
[2024-09-29] MEDS: TIMOPTIC 0.5% OPHTHALMIC SOLUTION 1 DROP OPHTH ×2 (07:46→19:36)
[2024-09-29] MEDS: VITAMIN B-12 1000 MCG PO (07:46)
[2024-09-29] MEDS: TYLENOL 650 MG PO ×2 (07:48→18:23)
--- NOTE | 2024-09-29 08:30 | PTCARENOTE ---
Patient received from overnight stocker RN; AAOx3, responds to RN spontaneously and follows commands; VSS; SR with PAC's on monitor; Doppler right DP, right PT, left popliteal, left brachial pulses; Lungs diminished and coarse throughout; 90-93% on RA; IS
1750 ml; Frequent moist, productive cough with yellow, thick sputum; Normoactive BS; Purewick in place draining sandra, clear urine; Surgical sites intact; Trace generalized anasarca; #22 right forearm and right arm midline; Patient complains of 6/10
generalized body aches and right shoulder pain - PRN PO Tylenol given accordingly; See nursing documentation for further details.
--- NOTE | 2024-09-29 09:41 | W.PN.CARDCBS ---
Addendum entered and electronically signed by Daiana Melendez MD 09/29/24 10:17:
I saw and examined the patient.
The Hide Trimmer's note was reviewed and I agree with the note.
Comment: Family at the bedside. Patient sitting in the chair. Ecchymosis noted on her face. Status post mechanical fall
Coronary artery disease/STEMI (peak troponin 35.4) with Vfib arrest/ischemic cardiomyopathy
Status post left main 4.0 x 12 mm [place] drug-eluting stent (09/23/2024) with Impella support. Doing well
Continue dual antiplatelet therapy with aspirin and Plavix
Reassess echocardiogram follow-up
Stop Toprol and start Coreg 3.125 mg BID with hold parameters. Eventually consider adding CHRISTIANE-I or ARNI if low EF if BP allows
Continue lipids
Original Note:
Today's Communication / Plan
-
Check limited echo
Continue to optimize medical therapy. Start Coreg
Continue aspirin, Plavix, statin
PT/OT
Impression / Plan
-
PCP: Chantel Montelongo DO
CDY: Jimmy Meraz DO (new to pt)
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
emergency room 09/19/2024 for evaluation after a mechanical fall while walking her dog. � LOC. She was down outside for approx. 3 hrs and upon arrival her Temp was 94. She was found to have a L intra-articular distal radius fracture and underwent
ORIF of the L radius on 09/20/2024. EKG on admission showed ST with PVC�s. Thereafter hemodynamically unstable, transferred to [place] where cardiac catheterization revealed critical ostial left main disease with cardiogenic shock necessitating
Impella placement and left main PCI.
PMH: Bilateral carotid disease, right subclavian steal, history of CVA, hypertension, hypercholesterolemia, left BKA, prior peripheral arterial stents
Current medications: Clopidogrel 75 mg a day, aspirin 81 mg a day, atorvastatin 40, pantoprazole, nor epi
Impression:
Transfer from [facility] to 09/23/2024 after unwitnessed fall while walking her dog
Cardiogenic shock with in hospital VF arrest requiring intubation 09/23/2024
Critical ostial left main disease on cardiac catheterization
status post left main CAREN 09/23/2024 with Impella support
Removal of Impella device 09/24/2024
post ORIF L radius 09/20/24 after mechanical fall
Ischemic cardiomyopathy EF 35%, 45-50% on repeat echo with Impella support
bilateral carotid artery stenosis
Right Subclavian steal syndrome
CVA
HTN
LLE BKA
PVD h/o stent
Cardiac catheterization 09/23/2024: LM 80 to 90% ostial stenosis status post 4.0 x 12 mm [place] drug-eluting stent. LAD: Patent. Left circumflex moderate nonobstructive luminal irregularities. RCA: Patent.
HEMODYNAMIC FINDINGS (mmHg):RA(a,v,m): 18, 14, 13; RV(s/d,EDP): 55/11, 20; PA(s/d/m): 50/31, 35; PCWP(a,v,m): 24, 28, 24; LV(s/d,EDP): 98/28, 44; Ao(s/d,m): 98/54, 69;
Oxygen Saturations (mg/dl): PA: 58% on 4 L of oxygen by nasal cannula; LV: 93% on 4 L of oxygen by nasal cannula
Cardiac Output/Index (l/min / l/min/m2): Estimated Yolanda Method: 4.3 /2.4
Echo 09/24/2024: EF 45-50%, akinesis of mid to apical inferoseptal and anteroseptal and apical brothers, anterior hypokinesis, Impella in place, valves not assessed in detail, RV appeared normal
Plan:
Presented as transfer from [facility] to [facility] 09/23/2024 with concern for NSTEMI following unwitnessed mechanical fall at home and was found down on the ground for at least 4 hours. Patient had wrist fracture and underwent left radial ORIF
09/20/2024 complicated by postop STEMI with VF arrest
Coronary artery disease/STEMI with Vfib arrest/ischemic cardiomyopathy
-Peak troponin 35.4
-Status post left main 4.0 x 12 mm [place] drug-eluting stent (09/23/2024) with Impella support
-Impella removed 09/24/2024; Extubated 09/25/2024. Weaned off Pressors 09/25/24
-Groin site intact without hematoma
-Continue dual antiplatelet therapy with aspirin and Plavix
-Blood pressures have improved. Now off Midodrine (last dose 09/27).
-Stop Toprol and start Coreg 3.125 mg BID with hold parameters. Consider adding CHRISTIANE-I if BP allows
-Continue moderate dose atorvastatin, lipids 09/24/2024 TC 85, HDL 30, LDL 35, triglycerides 100
-proBNP was 18057, repeated 09/25 and improving 4010; She did get 40 mg IV lasix 09/25. Does not appear to be acutely volume overloaded on exam.
-Villavicencio removed 09/26 and making urine
-Previous echo this admission was done with Impella in place. Given revascularization and removal of Impella will do limited echo to reassess LV function
Postoperative Anemia with admission hemoglobin 8.4, dropped to 7.4.
-Patient has received 3 units of packed RBCs (1 unit 09/23, 1 unit 09/25 and 1 unit 09/26).
-Hemoglobin is stable, today 10.2
Traumatic fall with left wrist fracture also complaining of shoulder pain
-Right shoulder x-ray with advanced AC arthritis but no fracture, dislocation or shoulder separation. Patient and family states she had multiple CT scans as part of trauma evaluation at [facility] which are not scanned in computer or
available in chart.
Patient continues on empiric antibiotics. Blood cultures negative x 4 days. Sputum culture with usual respiratory sebastien. Final report pending
Patient will need longterm facility at time of discharge given prior left lower extremity BKA, left wrist fracture status post ORIF and overall deconditioning
Progress Note - Laboratory Technologist
Subjective
Date of Service: September 29, 2024
Patient seen and examined. Patient's family at bedside. She sitting up in chair. She reports she was able to get her leg prosthesis on and do some limited activity in the last day or 2. Denies chest pain but still has mild shortness of breath
and cough
Objective
Labs:
09/29/24 03:10
09/29/24 03:10
Labs
Hgb 10.2 g/dL (12.0-16.0) L 09/29/24 03:10
Hct 30.8 % (37.0-47.0) L 09/29/24 03:10
Plt Count 178 10^3/uL (130-400) 09/29/24 03:10
PT 15.2 Sec (11.4-14.6) H 09/23/24 21:49
INR 1.17 09/23/24 21:49
APTT 27.0 Sec (23.4-35.0) 09/24/24 09:29
Sodium 142 mmol/L (135-145) 09/29/24 03:10
Potassium 3.8 mmol/L (3.5-5.1) 09/29/24 03:10
BUN 22 mg/dl (7-17) H 09/29/24 03:10
Creatinine 0.9 mg/dL (0.6-1.0) 09/29/24 03:10
Glucose 98 mg/dl (70-99) 09/29/24 03:10
Vital Signs and I&O:
Vital Signs
Temp Pulse Resp BP Pulse Ox
98.6 F 81 18 144/77 92
09/29/24 07:34 09/29/24 08:00 09/29/24 07:34 09/29/24 08:00 09/29/24 08:51
Vital Signs
Temp Pulse Resp BP Pulse Ox
98.6 F 81 18 144/77 92
09/29/24 07:34 09/29/24 08:00 09/29/24 07:34 09/29/24 08:00 09/29/24 08:51
Intake & Output
09/27/24 09/28/24 09/29/24 09/30/24
06:59 06:59 06:59 06:59
Intake Total 1260 / 1260 1185 / 1185 240 / 240
Output Total 3265 / 3265 400 / 400 1000 / 1000 250 / 250
Balance -2004 / -2004 785 / 785 -760 / -760 -250 / -250
Physical Exam
Physical Exam
GEN: No distress, awake, Ox3
HEENT: Facial lacerations with ecchymosis of face, blood blister on nose, supple, anicteric, mmm
LUNGS: Few scattered crackles at bases otherwise CTA, no wheezes/rales
CV: Reg, S1/S2, no murmur, rub or gallop
ABD: soft, BS+, NT/ND
EXT: Left lower extremity amputee,, no clubbing cyanosis or edema
NEURO: Nonfocal
SKIN: No rash warm, dry, pink
[2024-09-29] MEDS: COREG PO (10:21)
--- NOTE | 2024-09-29 10:39 | CM ---
Reviewed chart. Met with Mrs. Johnson and her daughter to review discharge plans. Reviewed the teams recommendations of Acute Rehab. Reviewed [facility]. Reviewed [facility]. and [facility]. at [place]. Telephone call to [facility] Liaison to make the referral. sent referral. Telephone cll to [facility]. to make the referral. Sent the referral. Will need to pre-cert with her insurance if approved for admission. Prior to admission she resides alone in a
bi-level home with twelve steps to enter. She has a first floor set-up once in the home. Prior to admission she was independent with ambulation and adls. She does use a walker at night. She was in [facility] in the past for Rehab. She has a
prescription plan and uses [facility]. Medical work-up in progress. The discharge plan is to go to acute rehab. if bed available and approved by insurance when medically stable.
--- NOTE | 2024-09-29 12:08 | PTCARENOTE ---
PO Carvedilol 3.125 mg BID ordered by MD Melendez - held due to low BP this AM; Patient asymptomatic - denies dizziness or lightheadedness at this time; Patient ambulated with PT/OT and had BM on BSC; Repeat Echo ordered by MD Melendez to
reevaluate EF.
--- NOTE | 2024-09-29 12:22 | W.PN.HOSP.TC ---
Today's Communication/Plan
-
repeat ECHO
PT/OT
Coreg
GDMT
monitor BP
Assessment / Plan
Assessment / Plan
Physical Exam
General: no acute distress, appears relatively comfortable
HEENT: Bruising Ecchymosis around face healing
Pulm: Clear to auscultation b/l
Cardio: S1/S2 NSR
Abd/pelvis: soft bowel sounds present
Ext: s/p left BKA, cool right foot, LUE cast in place
Neuro: Awake alert conversant
IMPRESSION:
84F former smoker LLE BKA CVA HTN asymptomatic carotid stenosis b/l, subclavian steal syndrome, vertebral artery aneurysm transferred from [facility] due to concern NSTEMI acute HFrEF. Originally patient was admitted to [place] following
mechanical fall resulting in Left Radial Fracture. S/P ORIF patient developed dyspnea chest tightness troponin elevation concerning for NSTEMI with associate ECHO noting reduced EF. Transferred here for cath, patient was noted to have severe CAD,
developed ventricular fibrillation and ultimately required intubation for airway protection. Stent was placed in left main in process. Patient subsequently admitted to CVICU on amio and nitro gtt with impella. NGT tube was complicated with
epistaxis so OG tube was placed instead. Patient since improved, extubated, downgraded to IMU.
PLAN:
#NSTEMI
#Multivessal CAD
#Left Main Disease s/p stent placement
#Vfib
#HTN
#Shock suspect cardiogenic
#Acute HFrEF
CVICU admit since improved stable for downgrade IMU 09/26/24
briefly treated with amio and nitro in medical lab scientist
Impella completed as per cardio
weaned off Levophed
Troponin trended to peak 35.400
asa plavix. Plan to start coreg. stop toprol. Repeat ECHO. e
cardio eval appreciated
Villavicencio discontinued, passed trial of void 09/26/24
daily weights I/O fluid restriction
diuresis as necessary per cardio
Monitor and replete electrolytes goal Mg 2.0 Potassium 4.0
Scheduled potassium supplementation 20 mEQ daily (hold if K>5)
#Ventilator dependent respiratory failure
CXR appreciated possible left lower lobe subsegmental atelectasis and/or small left pleural
Registered Public Surveyor eval appreciated extubated 09/25 to high flow
gradually weaned down to midflow
speech eval appreciated 09/26 continued NPO but cleared for oral meds crushed in pureed, sips of clears, Ice chips
aspiration precautions
#Lactic acidosis
likely 2/2 shock as above
resolved
#Anemia
#Acute blood loss anemia 2/2 epistaxis as below
monitor H&H
transfuse goal >=8 d/t cardiac hx
check B12 Folate Iron studies
Required 3 separate transfusions over the course of hospitalization
Lasix given with transfusions given heart failure
#Epistaxis
ENT eval appreciated
persistent bleeding believed to be due to posterior epistaxis as a result of traumatic NG tube placement.
Right nasal packing applied since removed after 3 days, epistaxis resolved
#Mild Leukocytosis resolved however patient developed Fever in association with tachycardia concerning for possible Sepsis (less likely)
#History concerning for aspiration
Follow Blood cultures NGTD and sputum culture repeated
IV Tylenol once for fever, since resolved
Empiric Unasyn de-escalated to Augmentin
#Hx HTN
#Hypotension
hold home antihypertensive d/t hypotension/shock as above
Low dose midodrine started once Albumin bolus, BP since improved
midodrine tapered to BID with holding parameter SBP>100 or HR<55
#Hyperglycemia resolved
A1c 5.5
sliding scale completed
#CKD 3
monitor renal function
Cr baseline Cr 1.2-1.1
avoid nephrotoxic agents as possible
#Right Shoulder pain
#hx fall originally admitted to [place] and treated for Lt radial fx s/p ORIF before transfer here for NSTEMI as above
Shoulder X-ray noted no acute abn's, advance arthritis noted
lidocaine patch
pain control
cont PT/OT
Significant hx PAD, vascular dz
HX CVA
Lt BKA
asymptomatic carotid stenosis b/l
subclavian steal syndrome
PT/OT appreciated Acute Rehab
dvt ppx SCD
gi ppx Protonix
Full Code
d/w with multiple family members at bedside
Anticipated Discharge: 24 - 48 hours
Subjective/Interval History
-
Date of Service: September 29, 2024
denies chest pain
Objective Data
-
Labs:
Laboratory Results
09/29/24
03:10
WBC 8.4
Hgb 10.2 L
Hct 30.8 L
Plt Count 178
Sodium 142
Potassium 3.8
Chloride 109 H
Carbon Dioxide 27
BUN 22 H
Creatinine 0.9
Glucose 98
Calcium 8.3 L
Total Bilirubin 1.3
AST 40 H
ALT 36 H
Alkaline Phosphatase 64
Vital Signs:
Vital Signs
Temp Pulse Resp BP Pulse Ox
98.4 F 80 17 97/56 92
09/29/24 11:00 09/29/24 12:00 09/29/24 11:00 09/29/24 11:46 09/29/24 11:00
I&O
09/28/24 09/29/24 09/30/24
06:59 06:59 06:59
Intake Total 1185 / 1185 240 / 240 400 / 400
Output Total 400 / 400 1000 / 1000 250 / 250
Balance 785 / 785 -760 / -760 150 / 150
Data Reviewed
-
Total Time Spent with Patient (in minutes): 55
--- NOTE | 2024-09-29 16:30 | PTCARENOTE ---
Repeat Echo done at bedside; Patient transferred back to bed with assist x2; Urinating sandra, clear urine in purewick without difficulty.
[2024-09-29] MEDS: COREG 3.125 MG PO (19:36)
[2024-09-29] MEDS: LIDOCAINE 4% PATCH 1 PATCH TOPICAL (19:36)
--- NOTE | 2024-09-29 20:00 | PTCARENOTE ---
[facility]. pt resting comfortably in bed. NSR on monitor. VSS. Pt is AAox4. heart sounds audible, right radial, left brachial, and left popliteal pulses all palpable, right DP pulse audible with doppler, trace left leg edema. lungs
diminished throughout, course lung sounds throughout, productive cough, spo2 93% on 2 L high flow NC, pt being treated for pneumonia. + BS x4 quadrants, abdomen, soft non tender. pt voiding clear yellow urine via purewick, purewick changed at start
of shift and derrick-care provided, on going skin assessments. left below the knee amputation, facial bruising from fall, right arm limb alert due to midline. PIV and midline maintained. d/c plan for pt is [facility]. pt reposition and sheets changed.
call vazquez within reach. will continue to monitor.
[2024-09-29] MEDS: XALATAN OPHTHALMIC SOLUTION 1 DROP BOTH EYES (22:16)
[2024-09-30] VITALS (18 sets, daily range): BP systolic 97–156; BP diastolic 51–104; PULSE 65–68; O2SAT 93–94; BMI 25.4
--- NOTE | 2024-09-30 | PTCARENOTE ---
pt resting comfortably in bed. NSR on monitor. VSS. will continue to monitor.
--- NOTE | 2024-09-30 04:00 | PTCARENOTE ---
Pt assessment unchanged. NSR on monitor. VSS. labs drawn and sent. derrick-care provided along with new purewick. sheets changed. pt weighed with bed scale. call vazquez within reach. will continue to monitor.
[2024-09-30 04:42] LABS: Hematocrit 31.5 % (37.0-47.0); Hemoglobin 10.2 g/dL (12.0-16.0); Mean Corp Hgb Conc. 32.4 g/dL (33.0-37.0); Mean Corpuscular Hgb 31.8 pg (27.0-31.0); Mean Corpuscular Volume 98.1 fL (81.0-99.0); Mean Platelet Volume 11.4 fL (7.4-10.4); Platelet Count 201 10^3/uL (130-400); Red Blood Cell Count 3.21 10^6/uL (4.20-5.40); Red Cell Dist. Width 15.6 % (11.5-14.5); White Blood Cell Count 11.3 10^3/uL (4.8-10.8)
[2024-09-30 05:03] LABS: ALT (SGPT) 38 U/L (0-35); AST (SGOT) 45 U/L (14-36); Albumin 2.8 g/dl (3.5-5.0); Alkaline Phosphatase 72 U/L (38-126); Blood Urea Nitrogen 19 mg/dl (7-17); Calcium 8.4 mg/dl (8.4-10.2); Carbon Dioxide 25 mmol/L (22-30); Chloride 109 mmol/L (98-107); Estimated Creatinine Clearance 40 ml/min; Glucose 98 mg/dl (70-99); Magnesium 2.4 mg/dl (1.6-2.3); Phosphorus 3.7 mg/dl (2.5-4.5); Sodium 143 mmol/L (135-145); Total Bilirubin 1.3 mg/dl (0.2-1.3); Total Protein 5.1 g/dl (6.3-8.2)
[2024-09-30] MEDS: MIRALAX TUBE (07:59)
[2024-09-30] MEDS: AUGMENTIN 875 MG/125 MG 1 TABLET PO (08:05)
[2024-09-30] MEDS: PROTONIX 40 MG PO (08:05)
[2024-09-30] MEDS: COREG 3.125 MG PO ×2 (08:05→19:54)
[2024-09-30] MEDS: KCL 20 MEQ PO (08:05)
[2024-09-30] MEDS: VITAMIN B-12 1000 MCG PO (08:05)
[2024-09-30] MEDS: LOW STRENGTH ASPIRIN 81 MG PO (08:05)
[2024-09-30] MEDS: PLAVIX 75 MG PO (08:05)
[2024-09-30] MEDS: TIMOPTIC 0.5% OPHTHALMIC SOLUTION 1 DROP OPHTH ×2 (08:06→19:54)
[2024-09-30] MEDS: LIPITOR 40 MG PO (08:06)
--- NOTE | 2024-09-30 08:34 | PN.CDI ---
CDI
- -
CDI:
Physician Documentation Request
Admit Date: 09/23/24 18:04
Dear Doctor Wanda,
Clinical Indicators:
Patient admitted with N STEMI in cardiogenic shock.
09/24 CXR report, 'Left hemidiaphragm is obscured suggesting left lower lobe subsegmental atelectasis and/or small left pleural effusion.'
09/26 ST note,'Pt exhibits clinical signs of oropharyngeal dysphagia, likely acute on chronic in nature. Chronic component likely related to previous CVA. Acute component likely related to cardiac arrest, recent intubation...'
09/27 Pulmonary PN, 'Fever noted, possible PNA'
09/28 PN, 'Mild Leukocytosis resolved however patient developed Fever in association with tachycardia concerning for possible Sepsis (less likely) #History concerning for aspiration'
Antibiotics: Unasyn 3gm IV x 3 days; transitioned to Augmentin po BID
Based on the above, could you clarify in the progress notes, the appropriate diagnosis, if significant, that supports the above abnormalities and additional evaluation, monitoring and/or treatment rendered:
Aspiration Pneumonia
Atelectasis/empiric antibiotics only
Other
Use of terms such as suspected, likely, concern for, or probable (associated with a specific diagnosis that is being evaluated, monitored, or treated as if it exists) are acceptable and can be coded in the inpatient setting, when documented at the
time of discharge.
Thank you,
Latia Olson RN BSN
CDI Specialist
available via tiger text
Please use your independent medical judgment in providing your response.
--- NOTE | 2024-09-30 08:45 | PTCARENOTE ---
Patient received from laundry aid RN; AAOx3, responds to RN spontaneously and follows commands; VSS; SR with occasional PAC's on monitor; Doppler right DP, right PT, left popliteal, left brachial pulses; Lungs diminished and coarse throughout;
90-93% on 2L; IS 2000 ml; Frequent moist, productive cough with yellow, thick sputum; Normoactive BS; Purewick in place draining sandra, clear urine; Surgical sites intact; Trace generalized anasarca; #22 right forearm and right arm midline; Patient
complains of 4/10 generalized body aches and right shoulder pain; See nursing documentation for further details.
--- NOTE | 2024-09-30 12:00 | PTCARENOTE ---
Patient ambulating in room with RN and had BM in bathroom; 93-97% on RA; Patient resting comfortably in chair at this time.
--- NOTE | 2024-09-30 12:43 | W.PN.HOSP.TC ---
Today's Communication/Plan
-
Dispo- acute rehab on discharge. Start dispo planning. Cards recs.
Assessment / Plan
Assessment / Plan
Physical Exam
General: no acute distress, appears relatively comfortable
HEENT: Bruising Ecchymosis around face healing
Pulm: Clear to auscultation b/l
Cardio: S1/S2 NSR
Abd/pelvis: soft bowel sounds present
Ext: s/p left BKA, cool right foot, LUE cast in place
Neuro: Awake alert conversant
IMPRESSION:
84F former smoker LLE BKA CVA HTN asymptomatic carotid stenosis b/l, subclavian steal syndrome, vertebral artery aneurysm transferred from [facility] due to concern NSTEMI acute HFrEF. Originally patient was admitted to [facility] following
mechanical fall resulting in Left Radial Fracture. S/P ORIF patient developed dyspnea chest tightness troponin elevation concerning for NSTEMI with associate ECHO noting reduced EF. Transferred here for cath, patient was noted to have severe CAD,
developed ventricular fibrillation and ultimately required intubation for airway protection. Stent was placed in left main in process. Patient subsequently admitted to CVICU on amio and nitro gtt with impella. NGT tube was complicated with
epistaxis so OG tube was placed instead. Patient since improved, extubated, downgraded to IMU.
PLAN:
#NSTEMI
#Multivessal CAD
#Left Main Disease s/p stent placement
#Vfib
#HTN
#Shock suspect cardiogenic
#Acute HFrEF
CVICU admit since improved stable for downgrade IMU 09/26/24
briefly treated with amio and nitro in trestle mainternance laborer
Impella completed as per cardio
weaned off Levophed
Troponin trended to peak 35.400
asa plavix. Plan to start coreg. stop toprol. Repeat ECHO noted.
BP holding so far.
cardio eval appreciated
Villavicencio discontinued, passed trial of void 09/26/24
daily weights I/O fluid restriction
diuresis as necessary per cardio
#Ventilator dependent respiratory failure
CXR appreciated possible left lower lobe subsegmental atelectasis and/or small left pleural
Superintendent Storage Area eval appreciated extubated 09/25 to high flow
gradually weaned down to midflow and now on room air.
Tolerating diet.
aspiration precautions
#Lactic acidosis
likely 2/2 shock as above
resolved
#Anemia
#Acute blood loss anemia 2/2 epistaxis as below
monitor H&H
transfuse goal >=8 d/t cardiac hx
check B12 Folate Iron studies
Required 3 separate transfusions over the course of hospitalization
Lasix given with transfusions given heart failure
Hgb stable at 10.2
#Epistaxis
ENT eval appreciated
persistent bleeding believed to be due to posterior epistaxis as a result of traumatic NG tube placement.
Right nasal packing applied since removed after 3 days, epistaxis resolved s/p short course of antibiotics.
#Mild Leukocytosis however patient developed Fever in association with tachycardia concerning for possible Sepsis (less likely)? aspiration pna/pnuemonitis
#History concerning for aspiration
Follow Blood cultures NGTD and sputum culture repeated
IV Tylenol once for fever, since resolved
Empiric Unasyn de-escalated to Augmentin
trend cbc for now but remains afebrile.
#Hx HTN
#Hypotension
hold home antihypertensive d/t hypotension/shock as above
Low dose midodrine started once Albumin bolus, BP since improved
midodrine tapered to BID with holding parameter SBP>100 or HR<55
#Hyperglycemia resolved
A1c 5.5
sliding scale completed
#CKD 3
monitor renal function
Cr baseline Cr 1.2-1.1
avoid nephrotoxic agents as possible
cr stabilized.
#Right Shoulder pain
#hx fall originally admitted to [facility] and treated for Lt radial fx s/p ORIF before transfer here for NSTEMI as above
Shoulder X-ray noted no acute abn's, advance arthritis noted
lidocaine patch
pain control
cont PT/OT
OP ortho f/u with primary surgeon
Significant hx PAD, vascular dz
HX CVA
Lt BKA
asymptomatic carotid stenosis b/l
subclavian steal syndrome
PT/OT appreciated Acute Rehab
dvt ppx SCD
gi ppx Protonix
Full Code
d/w with family member at bedside
Dispo- acute rehab on discharge. Start dispo planning. Cards recs.
Anticipated Discharge: Within 24 hours
Subjective/Interval History
-
Date of Service: September 30, 2024
states slept well overnight
Objective Data
-
Labs:
Laboratory Results
09/30/24
04:12
WBC 11.3 H
Hgb 10.2 L
Hct 31.5 L
Plt Count 201
Sodium 143
Potassium 4.0
Chloride 109 H
Carbon Dioxide 25
BUN 19 H
Creatinine 1.0
Glucose 98
Calcium 8.4
Total Bilirubin 1.3
AST 45 H
ALT 38 H
Alkaline Phosphatase 72
Vital Signs:
Vital Signs
Temp Pulse Resp BP Pulse Ox
98.1 F 65 18 97/56 97
09/30/24 11:53 09/30/24 11:52 09/30/24 11:53 09/30/24 11:52 09/30/24 11:53
I&O
09/29/24 09/30/24 10/01/24
06:59 06:59 06:59
Intake Total 240 / 240 1120 / 1120
Output Total 1000 / 1000 950 / 950 450 / 450
Balance -760 / -760 170 / 170 -450 / -450
Data Reviewed
-
Total Time Spent with Patient (in minutes): 52
--- NOTE | 2024-09-30 14:03 | CM ---
Reviewed chart. Met with Mrs. Johnson to review discharge plans. We reviewed [facility] at [facility] and [facility] [place]. She states she would prefer to stay here and go to [facility] [place]. [facility] to review status of referral. Left message. will need to pre-cert with her insurance. Medical work-up in progress. The discharge plan is to go to [facility] [place] if approved for admission and by her insurance when medically
stable.
[2024-09-30] MEDS: TYLENOL 650 MG PO ×2 (14:41→23:15)
--- NOTE | 2024-09-30 15:31 | W.PN.CARDCBS ---
Today's Communication / Plan
-
Nearing discharge to rehab
Plan as per impression and plan
Impression / Plan
-
PCP: Chantel Montelongo DO
CDY: Jimmy Meraz DO (new to )
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
emergency room 09/19/2024 for evaluation after a mechanical fall while walking her dog. � LOC. She was down outside for approx. 3 hrs and upon arrival her Temp was 94. She was found to have a L intra-articular distal radius fracture and underwent
ORIF of the L radius on 09/20/2024. EKG on admission showed ST with PVC�s. Thereafter hemodynamically unstable, transferred to [facility] where cardiac catheterization revealed critical ostial left main disease with cardiogenic shock necessitating
Impella placement and left main PCI.
PMH: Bilateral carotid disease, right subclavian steal, history of CVA, hypertension, hypercholesterolemia, left BKA, prior peripheral arterial stents
Current medications: Clopidogrel 75 mg a day, aspirin 81 mg a day, atorvastatin 40, pantoprazole, nor epi
Impression:
Transfer from [facility] to 09/23/2024 after unwitnessed fall while walking her dog
Cardiogenic shock with in hospital VF arrest requiring intubation 09/23/2024
Critical ostial left main disease on cardiac catheterization
status post left main CAREN 09/23/2024 with Impella support
Removal of Impella device 09/24/2024
post ORIF L radius 09/20/24 after mechanical fall
Ischemic cardiomyopathy EF 35%, 45-50% on repeat echo with Impella support
bilateral carotid artery stenosis
Right Subclavian steal syndrome
CVA
HTN
LLE BKA
PVD h/o stent
Cardiac catheterization 09/23/2024: LM 80 to 90% ostial stenosis status post 4.0 x 12 mm Magnolia drug-eluting stent. LAD: Patent. Left circumflex moderate nonobstructive luminal irregularities. RCA: Patent.
HEMODYNAMIC FINDINGS (mmHg):RA(a,v,m): 18, 14, 13; RV(s/d,EDP): 55/11, 20; PA(s/d/m): 50/31, 35; PCWP(a,v,m): 24, 28, 24; LV(s/d,EDP): 98/28, 44; Ao(s/d,m): 98/54, 69;
Oxygen Saturations (mg/dl): PA: 58% on 4 L of oxygen by nasal cannula; LV: 93% on 4 L of oxygen by nasal cannula
Cardiac Output/Index (l/min / l/min/m2): Estimated Yolanda Method: 4.3 /2.4
Echo 09/24/2024: EF 45-50%, akinesis of mid to apical inferoseptal and anteroseptal and apical brothers, anterior hypokinesis, Impella in place, valves not assessed in detail, RV appeared normal
Plan:
Presented as transfer from [facility] to [facility] 09/23/2024 with concern for NSTEMI following unwitnessed mechanical fall at home and was found down on the ground for at least 4 hours. Patient had wrist fracture and underwent left radial ORIF
09/20/2024 complicated by postop STEMI with VF arrest
Coronary artery disease/STEMI with Vfib arrest/ischemic cardiomyopathy
-Peak troponin 35.4
-Status post left main 4.0 x 12 mm Magnolia drug-eluting stent (09/23/2024) with Impella support
-Impella removed 09/24/2024; Extubated 09/25/2024. Weaned off Pressors 09/25/24
-Groin site intact without hematoma
-Continue dual antiplatelet therapy with aspirin and Plavix
-Stop Toprol and start Coreg 3.125 mg BID with hold parameters. Consider adding CHRISTIANE-I if BP allows
-Continue moderate dose atorvastatin, lipids 09/24/2024 TC 85, HDL 30, LDL 35, triglycerides 100
-proBNP was 72807, repeated 09/25 and improving 4010; She did get 40 mg IV lasix 09/25. Does not appear to be acutely volume overloaded on exam.
-Villavicencio removed 09/26 and making urine
-Previous echo this admission was done with Impella in place. Given revascularization and removal of Impella will do limited echo to reassess LV function
Postoperative Anemia with admission hemoglobin 8.4, dropped to 7.4.
-Patient has received 3 units of packed RBCs (1 unit 09/23, 1 unit 09/25 and 1 unit 09/26).
-Hemoglobin is stable, today 10.2
Traumatic fall with left wrist fracture also complaining of shoulder pain
-Right shoulder x-ray with advanced AC arthritis but no fracture, dislocation or shoulder separation. Patient and family states she had multiple CT scans as part of trauma evaluation at [facility] which are not scanned in computer or
available in chart.
Patient continues on empiric antibiotics. Blood cultures negative x 4 days. Sputum culture with usual respiratory sebastien. Final report pending
Patient will need senior care facility at time of discharge given prior left lower extremity BKA, left wrist fracture status post ORIF and overall deconditioning. Appears to be approaching discharge
Progress Note - Shear Assembler
Subjective
Date of Service: September 30, 2024
Feels well no chest pain
Objective
Labs:
09/30/24 04:12
09/30/24 04:12
Labs
Hgb 10.2 g/dL (12.0-16.0) L 09/30/24 04:12
Hct 31.5 % (37.0-47.0) L 09/30/24 04:12
Plt Count 201 10^3/uL (130-400) 09/30/24 04:12
PT 15.2 Sec (11.4-14.6) H 09/23/24 21:49
INR 1.17 09/23/24 21:49
APTT 27.0 Sec (23.4-35.0) 09/24/24 09:29
Sodium 143 mmol/L (135-145) 09/30/24 04:12
Potassium 4.0 mmol/L (3.5-5.1) 09/30/24 04:12
BUN 19 mg/dl (7-17) H 09/30/24 04:12
Creatinine 1.0 mg/dL (0.6-1.0) 09/30/24 04:12
Glucose 98 mg/dl (70-99) 09/30/24 04:12
Vital Signs and I&O:
Vital Signs
Temp Pulse Resp BP Pulse Ox
98.1 F 67 18 97/56 97
09/30/24 11:53 09/30/24 13:00 09/30/24 11:53 09/30/24 11:52 09/30/24 11:53
Vital Signs
Temp Pulse Resp BP Pulse Ox
98.1 F 67 18 97/56 97
09/30/24 11:53 09/30/24 13:00 09/30/24 11:53 09/30/24 11:52 09/30/24 11:53
Intake & Output
09/28/24 09/29/24 09/30/24 10/01/24
06:59 06:59 06:59 06:59
Intake Total 1185 / 1185 240 / 240 1120 / 1120
Output Total 400 / 400 1000 / 1000 950 / 950 450 / 450
Balance 785 / 785 -760 / -760 170 / 170 -450 / -450
Physical Exam
Physical Exam
Physical Exam
General: no apparent distress, not acutely ill
Neck: supple. no meningeal signs. normal psoterior pharynx
Heart: s1/s2 regular rate and rhythm, no murmur. equal radial pulses.
Lungs: no acute respiratory distress. clear bilaterally
Abdomen: normal bowel sounds. not tender. no CVAT
Neuro: alert and oriented. no focal neurological deficits
Skin: no rash
Psychiatric: well kept. interactive and cooperative
Extremities: no edema. no calf tenderness. negative homans. good distal pulses
--- NOTE | 2024-09-30 16:10 | PTCARENOTE ---
Patient able to ambulate to bathroom multiple times with RN with assist x1 with platform walker; PRN PO Tylenol given with good effect for headache; VSS
[2024-09-30] MEDS: LIDOCAINE 4% PATCH 1 PATCH TOPICAL (19:54)
[2024-09-30] MEDS: XALATAN OPHTHALMIC SOLUTION 1 DROP BOTH EYES (23:16)
[2024-10-01] VITALS (9 sets, daily range): BP systolic 108–138; BP diastolic 55–93; PULSE 65–67; O2SAT 98; BMI 24.9
--- NOTE | 2024-10-01 00:41 | PTCARENOTE ---
Pt given Tylenol for c/o stabbing Migraine pain. Pt rated 7 out of 10 but just would like to take Tylenol nothing more. call vazquez within reach
[2024-10-01] MEDS: TYLENOL 650 MG PO ×2 (04:48→10:41)
[2024-10-01 05:52] LABS: Hematocrit 32.1 % (37.0-47.0); Hemoglobin 10.6 g/dL (12.0-16.0); Mean Corpuscular Hgb 31.6 pg (27.0-31.0); Mean Corpuscular Volume 95.8 fL (81.0-99.0); Mean Platelet Volume 11.1 fL (7.4-10.4); Platelet Count 268 10^3/uL (130-400); Red Blood Cell Count 3.35 10^6/uL (4.20-5.40); Red Cell Dist. Width 15.6 % (11.5-14.5)
[2024-10-01 06:09] LABS: ALT (SGPT) 40 U/L (0-35); AST (SGOT) 43 U/L (14-36); Alkaline Phosphatase 76 U/L (38-126); Blood Urea Nitrogen 18 mg/dl (7-17); Calcium 8.5 mg/dl (8.4-10.2); Carbon Dioxide 23 mmol/L (22-30); Chloride 110 mmol/L (98-107); Estimated Creatinine Clearance 40 ml/min; Glucose 95 mg/dl (70-99); Magnesium 2.4 mg/dl (1.6-2.3); Phosphorus 3.7 mg/dl (2.5-4.5); Potassium 4.2 mmol/L (3.5-5.1); Sodium 144 mmol/L (135-145); Total Bilirubin 1.4 mg/dl (0.2-1.3); Total Protein 5.3 g/dl (6.3-8.2)
--- NOTE | 2024-10-01 06:39 | PTCARENOTE ---
Pt oob to bsc with 2 person nursing assist. Passed large formed bm. Assisted to recliner chair after. call vazquez within reach.
[2024-10-01] MEDS: VITAMIN B-12 1000 MCG PO (09:40)
[2024-10-01] MEDS: COREG 3.125 MG PO ×2 (09:40→20:34)
[2024-10-01] MEDS: PROTONIX 40 MG PO (09:40)
[2024-10-01] MEDS: LOW STRENGTH ASPIRIN 81 MG PO (09:40)
[2024-10-01] MEDS: PLAVIX 75 MG PO (09:40)
[2024-10-01] MEDS: LIPITOR 40 MG PO (09:40)
[2024-10-01] MEDS: MIRALAX TUBE (09:41)
[2024-10-01] MEDS: TIMOPTIC 0.5% OPHTHALMIC SOLUTION 1 DROP OPHTH ×2 (10:39→20:34)
--- NOTE | 2024-10-01 11:11 | W.PN.HOSP.TC ---
Today's Communication/Plan
-
await placement to rehab
PMR consulted
Cards recs
BP holding
oob'
cont asa/plavix/statin
Assessment / Plan
Assessment / Plan
Physical Exam
General: no acute distress, appears relatively comfortable
HEENT: Bruising Ecchymosis around face healing
Pulm: Clear to auscultation b/l
Cardio: S1/S2 NSR
Abd/pelvis: soft bowel sounds present
Ext: s/p left BKA, cool right foot, LUE cast in place
Neuro: Awake alert conversant
IMPRESSION:
84F former smoker LLE BKA CVA HTN asymptomatic carotid stenosis b/l, subclavian steal syndrome, vertebral artery aneurysm transferred from [facility] due to concern NSTEMI acute HFrEF. Originally patient was admitted to [facility] following
mechanical fall resulting in Left Radial Fracture. S/P ORIF patient developed dyspnea chest tightness troponin elevation concerning for NSTEMI with associate ECHO noting reduced EF. Transferred here for cath, patient was noted to have severe CAD,
developed ventricular fibrillation and ultimately required intubation for airway protection. Stent was placed in left main in process. Patient subsequently admitted to CVICU on amio and nitro gtt with impella. NGT tube was complicated with
epistaxis so OG tube was placed instead. Patient since improved, extubated, downgraded to IMU.
PLAN:
#NSTEMI
#Multivessal CAD
#Left Main Disease s/p stent placement
#Vfib
#HTN
#Shock suspect cardiogenic
#Acute HFrEF
CVICU admit since improved stable for downgrade IMU 09/26/24
briefly treated with amio and nitro in home performance laborer
Impella completed as per cardio
weaned off Levophed
Troponin trended to peak 35.400
asa plavix. Tolerating Coreg so far. stop toprol. Repeat ECHO noted.
BP holding so far.
cardio eval appreciated
Villavicencio discontinued, passed trial of void 09/26/24
daily weights I/O fluid restriction
diuresis as necessary per cardio
#Ventilator dependent respiratory failure
CXR appreciated possible left lower lobe subsegmental atelectasis and/or small left pleural
Jewelry Casting Model Maker eval appreciated extubated 09/25 to high flow
gradually weaned down to midflow and now on room air.
Tolerating diet.
aspiration precautions
#Lactic acidosis
likely 2/2 shock as above
resolved
#Anemia
#Acute blood loss anemia 2/2 epistaxis as below
monitor H&H
transfuse goal >=8 d/t cardiac hx
Required 3 separate transfusions over the course of hospitalization
Lasix given with transfusions given heart failure
Hgb stable at 10.6
#Epistaxis
ENT eval appreciated
persistent bleeding believed to be due to posterior epistaxis as a result of traumatic NG tube placement.
Right nasal packing applied since removed after 3 days, epistaxis resolved s/p short course of antibiotics.
#Mild Leukocytosis however patient developed Fever in association with tachycardia concerning for possible Sepsis (less likely)? aspiration pna/pnuemonitis
#History concerning for aspiration
Follow Blood cultures NGTD and sputum culture repeated
IV Tylenol once for fever, since resolved
Empiric Unasyn de-escalated to Augmentin and further abx stopped.
trend cbc for now but remains afebrile.
#Hx HTN
#Hypotension
hold home antihypertensive d/t hypotension/shock as above
Low dose midodrine started once Albumin bolus, BP since improved
midodrine tapered to BID with holding parameter SBP>100 or HR<55
#Hyperglycemia resolved
A1c 5.5
sliding scale completed
#CKD 3
monitor renal function
Cr baseline Cr 1.2-1.1
avoid nephrotoxic agents as possible
cr stabilized.
#Right Shoulder pain
#hx fall originally admitted to [place] and treated for Lt radial fx s/p ORIF before transfer here for NSTEMI as above
Shoulder X-ray noted no acute abn's, advance arthritis noted
lidocaine patch
pain control
cont PT/OT
OP ortho f/u with primary surgeon
Significant hx PAD, vascular dz
HX CVA
Lt BKA
asymptomatic carotid stenosis b/l
subclavian steal syndrome
PT/OT appreciated Acute Rehab
dvt ppx SCD
gi ppx Protonix
Full Code
d/w with family member at bedside
Dispo- acute rehab on discharge. Start dispo planning. Cards recs.
Anticipated Discharge: Within 24 hours
Subjective/Interval History
-
Date of Service: October 01, 2024
No overnight events
BP stable
tolerating diet
awaiting for placement
Objective Data
-
Labs:
Laboratory Results
10/01/24
05:03
WBC 9.0
Hgb 10.6 L
Hct 32.1 L
Plt Count 268 D
Sodium 144
Potassium 4.2
Chloride 110 H
Carbon Dioxide 23
BUN 18 H
Creatinine 1.0
Glucose 95
Calcium 8.5
Total Bilirubin 1.4 H
AST 43 H
ALT 40 H
Alkaline Phosphatase 76
Vital Signs:
Vital Signs
Temp Pulse Resp BP Pulse Ox
97.9 F 71 18 123/83 96
10/01/24 08:42 10/01/24 08:42 10/01/24 08:42 10/01/24 09:40 10/01/24 09:31
I&O
09/30/24 10/01/24 10/02/24
06:59 06:59 06:59
Intake Total 1120 / 1120 460 / 460
Output Total 950 / 950 1150 / 1150
Balance 170 / 170 -690 / -690
--- NOTE | 2024-10-01 11:28 | W.PN.CARDCBS ---
Addendum entered and electronically signed by Corey Curran MD 10/01/24 12:31:
I saw and examined the patient.
The FORCE DISPATCHER or PA's note was reviewed and I agree with the note.
Comment: General: Well developed, well nourished in NAD.
Neck: Supple, no JVD, HJR, carotids +2 B/L, no bruits bilaterally.
Heart: Non displaced PMI, RRR, no murmurs, No S3, S4, no rubs.
Lungs: Clear to auscultation bilaterally, no wheeze, rhonchi, rubs bilaterally,
normal expiratory phase.
Extremities: No clubbing, cyanosis or edema bilaterally.
Neuro: Grossly nonfocal, awake, alert and oriented x3.
Stable cardiology status to transfer to [place] when bed available..
Original Note:
Today's Communication / Plan
-
Cont DAPT with aspirin and Plavix
EF improved to 45% by repeat echo 09/29/24
Stable fro transfer to [place] rehab when bed available
Impression / Plan
-
PCP: Chantel Montelongo DO
CDY: Jimmy Meraz DO (new to )
Impression:
Transfer from [facility] to after unwitnessed fall while walking her dog 09/23/2024
Cardiogenic shock with in hospital VF arrest requiring intubation 09/23/2024
Acute HFrEF
Ischemic cardiomyopathy EF 35%, 45-50% on repeat echo
Critical ostial left main disease on cardiac catheterization
status post 4 mm [place] CAREN to left main with Impella support 09/23/2024
Removal of Impella device 09/24/2024
post ORIF L radius 09/20/24 after mechanical fall
bilateral carotid artery stenosis
Right Subclavian steal syndrome
CVA
HTN
LLE BKA
PVD h/o stent
Cardiac catheterization 09/23/2024: LM 80 to 90% ostial stenosis status post 4.0 x 12 mm Husam drug-eluting stent. LAD: Patent. Left circumflex moderate nonobstructive luminal irregularities. RCA: Patent.
HEMODYNAMIC FINDINGS (mmHg):RA(a,v,m): 18, 14, 13; RV(s/d,EDP): 55/11, 20; PA(s/d/m): 50/31, 35; PCWP(a,v,m): 24, 28, 24; LV(s/d,EDP): 98/28, 44; Ao(s/d,m): 98/54, 69;
Oxygen Saturations (mg/dl): PA: 58% on 4 L of oxygen by nasal cannula; LV: 93% on 4 L of oxygen by nasal cannula
Cardiac Output/Index (l/min / l/min/m2): Estimated Yolanda Method: 4.3 /2.4
Echo 09/23/24: [facility] study, EF 35% with new wall motion abnormalities
Echo 09/24/24: EF 45-50%, akinesis of mid to apical inferoseptal and anteroseptal and apical brothers, anterior hypokinesis, Impella in place, valves not assessed in detail, RV appeared normal
Echo 09/29/24: EF 45 to 50%, global hypokinesis, normal RV size and function, normal pericardium without effusion
Plan:
-Presented as transfer from [facility] to [facility] 09/23/2024. Initially admitted to [facility] following unwitnessed mechanical fall at home and was found down on the ground for at least 4 hours 09/19/24. Patient had wrist fracture and underwent left
radial ORIF 09/20/2024 complicated by postop chest pain which prompted an echo and found to have newly reduced EF at 35%. Patient was then transferred to for cath 09/23/24 and patient had hemodynamic instability and VF after initial coronary
angiography that was managed with CPR, Impella placement, defibrillation x1, Epi x1 and ultimately an Impella assisted LM stent. Impella removed 09/24/24 and pressors weaned 09/25/24.
-Patient is tolerating DAPT with aspirin and Plavix
-EF improved to 45-50% by repeat echo 09/29/24
-New to Coreg 3.125 mg BID
-Outpatient dose of losartan 25 mg daily was initially held due to hypotension, but BP has improved so will restart 10/01/24, ordered by me.
-Cardiac rehab consulted, but currently undergoing PT/OT and will need acute care rehab prior to returning home.
-LDL 35 and outpatient dose of atorvastatin 40 mg daily continued
-Patient was given Lasix IV doses intermittently this admission. No evidence of acute HF currently and no loop diuretic ordered. Patient was not taking a loop diuretic prior to admission.
-Postoperative Anemia with Hgb as low as 7.4 this admission and was managed with 3 units of PRBCs over 09/23/24, 09/25/24 and 09/26/24
-Patient has received 3 units of packed RBCs (1 unit 09/23, 1 unit 09/25 and 1 unit 09/26).
-Plan is for acute care rehab at [facility]
Progress Note - Emergency Response Coordinator
Subjective
Date of Service: October 01, 2024
Feels well aside from chest discomfort after CPR
Objective
Labs:
10/01/24 05:03
10/01/24 05:03
Labs
Hgb 10.6 g/dL (12.0-16.0) L 10/01/24 05:03
Hct 32.1 % (37.0-47.0) L 10/01/24 05:03
Plt Count 268 10^3/uL (130-400) D 10/01/24 05:03
PT 15.2 Sec (11.4-14.6) H 09/23/24 21:49
INR 1.17 09/23/24 21:49
APTT 27.0 Sec (23.4-35.0) 09/24/24 09:29
Sodium 144 mmol/L (135-145) 10/01/24 05:03
Potassium 4.2 mmol/L (3.5-5.1) 10/01/24 05:03
BUN 18 mg/dl (7-17) H 10/01/24 05:03
Creatinine 1.0 mg/dL (0.6-1.0) 10/01/24 05:03
Glucose 95 mg/dl (70-99) 10/01/24 05:03
Vital Signs and I&O:
Vital Signs
Temp Pulse Resp BP Pulse Ox
97.9 F 71 18 123/83 96
10/01/24 08:42 10/01/24 08:42 10/01/24 08:42 10/01/24 09:40 10/01/24 09:31
Vital Signs
Temp Pulse Resp BP Pulse Ox
97.9 F 71 18 123/83 96
10/01/24 08:42 10/01/24 08:42 10/01/24 08:42 10/01/24 09:40 10/01/24 09:31
Intake & Output
09/29/24 09/30/24 10/01/24 10/02/24
06:59 06:59 06:59 06:59
Intake Total 240 / 240 1120 / 1120 460 / 460
Output Total 1000 / 1000 950 / 950 1150 / 1150
Balance -760 / -760 170 / 170 -690 / -690
Physical Exam
Physical Exam
GEN: AAOx3
HEENT: Improving facial ecchymosis, fading to green, EOMI
LUNGS: RA, no audible wheeze
CV: SR on tele
ABD: ND
EXT: s/p left BKA, no edema
NEURO: No focal weakness
SKIN: No rash
--- NOTE | 2024-10-01 13:13 | CM ---
CM following for DC planning needs.
Pt. transferred to IVU. Reviewed initial assessment. Pt. comes from 2 story home alone; is managed on the first floor.
She is functionally indep. at baseline w/ RW (@ night).
Plan is for acute rehab @ [place] as recommended by PT-OT. Awaiting PMR evaluation, which is required for insurance authorization.
Pt. has been accepted @ [place] [facility]; bed is avail.
Once PMR eval completed, will submit to [employer] for acute rehab approval.
Met w/ patient and dtrDidi Curtis at bedside. Reviewed plan. Will update accordingly.
Goal: [place] rehab once approved by [facility]
[2024-10-01] MEDS: COZAAR 25 MG PO (13:14)
--- NOTE | 2024-10-01 17:45 | CON.MD ---
Consultation - Medical
-
Referring Provider:�Dr. Eulalio Briseno
Chief Complaint:�NSTEMI
�
History of Present Illness:�84-year-old female with PMH (as below) presented to [facility] on 09/23/2024 as a transfer from [facility] with concern for an NSTEMI and acute heart failure with reduced ejection fraction. She
originally presented to [facility] with a mechanical fall and left radial fracture status post ORIF. Postoperatively she developed chest pain and tightness with elevated troponin concerning for NSTEMI with reduced ejection fraction on echo.
Transfer to [place] for cardiac cath where she developed hypotension and V-fib arrest with brief CPR and 1 defibrillation and found to have severe CAD with a left main arterial stent placed.. Required intubation and Impella placement in the
[place]. Was deemed to be a nonsurgical candidate by CT surgery. She developed ventricular fibrillation and required intubation for airway protection. Repeat echocardiogram 09/23 with an EF 30-35% and akinesis of the anterior and inferoseptum to
apex anteroseptum. Received multiple transfusions. Found to have posterior epistaxis requiring packing. Extubated 09/25/2024.
Has left forearm cast and nonweightbearing with use of platform rolling walker. Has left arm cornell that need to come out Sunday after cast removal and then another cast must be placed.
�
Past Medical History:�CVA, HTN, asymptomatic bilateral carotid stenosis, subclavian steal syndrome, vertebral artery aneurysm, severe CAD, peripheral vascular disease
Procedure History:�Left lower extremity transtibial amputation
Family History:�Reviewed and none pertinent
�
Social History:�
Functional Level Premorbidly:�Independent with all activities�
Functional Level Currently:�Max assist grooming, min assist upper extremity self-care, dependent lower extremity self-care, mod assist transfers, mod assist ambulating 20 feet withleft platform walker
�
Tobacco:�Former
Alcohol:�Denies�
Drug use:�Denies�
�
Lives with:�Alone
24-hour assistance available:�Yes will stay with daughter
Number of floors:�2
# steps to enter:�1
# steps to second floor: 6+6
Potential First floor set up:�No
Driving:�Yes
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
�
�
Allergies:�
Allergy/AdvReac Type Severity Reaction Status Date / Time
bee venom protein (honey bee) Allergy Unknown Verified 09/23/24 14:06
�
Review of Systems:�
Constitutional: (x) abNormal _fatigue
Eye: (x) Normal _
Ear/Nose/Throat: (x) Normal _
Respiratory: (x) Normal _
Cardiovascular: (x) abNormal _heart attack requiring stent, cardiac arrest, CPR
Gastrointestinal: (x) Normal _
Genitourinary: (x) Normal _
Musculoskeletal: (x) abNormal _left radial fracture with surgery
Integumentary: (x) Normal _
Neurologic: (x) Normal _denies any concussion symptoms
Psychiatric: (x) Normal _
Endocrine: (x) Normal _
Hematologic/Lymphatic: (x) Normal _
Allergic/Immunologic: (x) Normal _
�
Medications:�
Active Current Visit Medication List
Category Date Time Status
Acetaminophen [Tylenol] Med 09/23/24 16:42 Active
650 mg PO Q4HPRN PRN
Aspirin Chewable [Low Strength Aspirin] Med 09/24/24 08:00 Active
81 mg PO DAILY
Atorvastatin [Lipitor] Med 09/24/24 08:00 Active
40 mg PO DAILY
Carvedilol [Coreg] Med 09/29/24 08:50 Active
3.125 mg PO BID
Cilostazol [Pletal] Med 10/01/24 20:00 Active
100 mg PO BID
Clopidogrel Bisulfate [Plavix] Med 09/24/24 08:00 Active
75 mg PO DAILY
Cyanocobalamin [Vitamin B-12] Med 09/28/24 08:00 Active
1,000 mcg PO DAILY
Dextrose 50%-Water [Dextrose 50% Syringe] Med 09/23/24 21:02 Active
12.5 grams IV [id number] PRN
Flush (0.9% Sodium Chloride) [Flush (Nss)] Med 09/23/24 23:00 Active
See Dose Instructions IV PER PROTOCOL
Glucagon [GlucaGen] Med 09/23/24 21:02 Active
1 mg IM PRN PRN
Latanoprost [Xalatan Ophthalmic Solution] Med 09/26/24 22:00 Active
1 drop BOTH EYES HS
Lidocaine [Lidocaine 4% Patch] Med 09/27/24 20:00 Active
1 patch TOPICAL DAILY@1999
Losartan [Cozaar] Med 10/01/24 12:00 Active
25 mg PO DAILY
Pantoprazole [Protonix] Med 09/30/24 08:00 Active
40 mg PO DAILY
Polyethylene Glycol Powder [Miralax] Med 09/24/24 08:00 Active
17 grams TUBE DAILY
Remove Patch [Remove Lidocaine Patch] Med 09/28/24 08:00 Active
See Dose Instructions REMOVE DAILY
Timolol Maleate 0.5% [Timoptic 0.5% Ophthalmic Solution Med 09/26/24 09:00 Active
]
See Dose Instructions OPHTH Q12
Tramadol HCl [Ultram] Med 09/29/24 03:45 Active
25 mg PO Q6HPRN PRN
�
Vitals:�
Temp Pulse Resp BP Pulse Ox
97.7 F 65 18 108/68 92
10/01/24 15:46 10/01/24 16:00 10/01/24 15:46 10/01/24 15:46 10/01/24 16:26
Height 5 ft 6 in
Actual Weight 70 kg
Body Mass Index (BMI) 24.9
�
Physical Exam:�
General Appearance/Observation: Well-developed, well-nourished female in no apparent distress.�
Pain/Comfort Assessment: Denies�currently
Mood/Affect: Appropriate�
�
Integumentary/Operative Site:�bruisng over face and body diffusely.
�
Eyes: Conjunctiva/Lids: normal���� Pupils: pupils equal round and reactive to light and Accommodation�
Ears/Nose/Throat: oral mucosa moist,� throat clear.������������ Lips/Teeth/Gums: normal�
Cardiovascular: Heart: regular, no murmur�
Pulses: dorsalis pedis 2+ bilaterally�
Respiratory: Respiratory Effort/Chest Expansion: normal������� Auscultation: Clear to auscultation bilaterally�
Gastrointestinal: abdomen not tender, no distension, normal abdominal bowel sounds
Genitourinary: No Villavicencio�
Rectal Exam: Deferred�
Extremities:�Edema: Minimal left hand�cyanosis: None�Trophic�changes: None
-Left forearm cast
Neurology Exam:
Orientation: Alert, Oriented to self, Time, Place�
Memory: Intact for recent medical concerns
Repetition: Intact
Comprehension: Intact
Two step command: Intact
Cranial Nerves:
�� CNII:�Pupillary light reflex: Intact����Visual Field: Intact
�� CN III, IV, : Extraocular muscles: Intact�
�� CN V:�Facial Sensation�at�Forehead: Intact,�Maxilla: Intact,�Mandible: Intact
�� CN VII:�Facial movement: Symmetric
�� CN VIII:�Hearing: Normal
�� CN IX/X:�Speech & swallow: Normal,�Position of Uvula: Midline
�� CN XI:�Shoulder shrug: Symmetric
�� CN XII:�Tongue protrusion: Midline
Sensory:
�� Light touch: Intact in bilateral upper and lower extremities
�
Reflexes:
�� Biceps: 2+ bilaterally
�� Brachioradialis: 2+ bilaterally
�� Triceps: 2+ bilaterally
�� Patellar: 2+ bilaterally
�� Achilles: 2+ bilaterally
�� Babinski: Down going bilaterally
�� Clonus: None
�� Aylin: Negative bilaterally�
Cerebellar: Dysmetria/Ataxia: None�
Musculoskeletal: Motor: (Manual muscle scale 0-5)�
Muscle SA EF WE EE FF FA HF KE DF EHL PF
Right� 5 5 5 5 5 5 4 5 5 5
Left NT NT NT NT NT NT 4 5 5 5
�
Tone: Normal in all extremities�
Range of Motion: Passively within normal limits in all extremities except for left arm not tested with cast�
Lab Results
Laboratory Data
10/01/24 05:03
10/01/24 05:03
PT 15.2 Sec (11.4-14.6) H 09/23/24 21:49
INR 1.17 09/23/24 21:49
APTT 27.0 Sec (23.4-35.0) 09/24/24 09:29
Total Bilirubin 1.4 mg/dl (0.2-1.3) H 10/01/24 05:03
Direct Bilirubin 0.3 mg/dl (0.0-0.4) 09/25/24 13:47
AST 43 U/L (14-36) H 10/01/24 05:03
ALT 40 U/L (0-35) H 10/01/24 05:03
Alkaline Phosphatase 76 U/L (38-126) 10/01/24 05:03
Total Protein 5.3 g/dl (6.3-8.2) L 10/01/24 05:03
Albumin 3.0 g/dl (3.5-5.0) L 10/01/24 05:03
�
Diagnostic Results:�as per HPI�
�
Assessment
84y/o F PMH (CVA, HTN, asymptomatic bilateral carotid stenosis, subclavian steal syndrome, vertebral artery aneurysm, severe CAD, peripheral vascular disease) with mechanical fall and left radial fracture s/p ORIF and nonweightbearing complicated by
NSTEMI and acute heart failure with reduced EF requiring cardiac cath with left main stent complicated by V-fib cardiac arrest requiring defibrillation with hypotension, intubated with extubation 09/25/2024 anemia requiring multiple transfusions
resulting in ADL and amatory dysfunction.
Has left forearm cast and nonweightbearing with use of platform rolling walker.
�
Plan�
PM&R�PT/OT to increase independence with ADLs, improve balance, coordination, endurance, strength, mobility, community reintegration, decreased burden of care on others and family education.�
Severe CAD with NSTEMI s/p left main stent Aspirin/Plavix has, statin, beta-shoshana�
Left radial fracture s/p ORIF: Nonweightbearing, can bear weight through arm with use of platform walker.
-Need to identify the surgeon and see if surgery can remove cast and cornell this Sunday and place new cast. Patient thinks Dr. Lugo of [facility]
CVA history: Noted on CT scan incidentally. Secondary prophylaxis with aspirin/Plavix and statin, monitor neurologic status.�
Peripheral vascular disease: Pletal, Plavix, aspirin, statin
HTN: Carvedilol 3.125 mg, losartan 25 mg, monitor closely�
HLD: Statin�
Atrial flutter/V-fib with cardiac arrest:�Carvedilol. Not on anticoagulation.�����������������������������������������
Acute CHF: EF 30�35%, beta shoshana, ARB, monitor fluid status�
Postoperative anemia: required transfusions, monitor.�
Glaucoma: Latanoprost
Psych: Psychology consult.� Monitor mood, medications as needed.�
Skin: monitor for pressure sores/rashes/lesions.�
Pain: acetaminophen or tramadol as needed.�
Bowel: MiraLAX and Senna, PRN bisacodyl.�
Bladder: Time void, PVRs, PRN straight cath.�
FEN: B12 supplementation
GI Prophylaxis: Pantoprazole�
DVT Prophylaxis: Mechanical, consider chemoprophylaxis
Pulmonary: Incentive spirometry�
Safety: Continue to reinforce assistance with all transfers.�
Code Status:� Full code
Dispo�(date/plan/equipment needs): Home with family care.� Social history reviewed.�
Functional and Medical Goals:�Modified Independent with ADL�s, ambulation, transfers�
Discharge Destination:�Acute inpatient rehabilitation
�
Summary of recommendations:
-�Discharge Destination:�Acute inpatient rehabilitation
Severe CAD with NSTEMI s/p left main stent Aspirin/Plavix has, statin, beta-shoshana�
Left radial fracture s/p ORIF: Nonweightbearing, can bear weight through arm with use of platform walker.
-Need to identify the surgeon and see if surgery can remove cast and cornell this Sunday and place new cast. Patient thinks Dr. Lugo of [facility]
Acute CHF: EF 30�35%, beta shoshana, ARB, monitor fluid status�
Thank you for allowing me to care for your patient. Please contact me with any questions or concerns.
--- NOTE | 2024-10-01 18:46 | PTCARENOTE ---
Pt OOB to chair and bathroom for most of the day with assist of 2 to stand. Pt takes very small steps and tends to lean backwards. Pt seen by Dr. Biswas this evening. She is motivated to be in rehab. Telemetry shows sinus rhythm.
[2024-10-01] MEDS: LIDOCAINE 4% PATCH 1 PATCH TOPICAL (20:28)
[2024-10-01] MEDS: PLETAL 100 MG PO (20:34)
[2024-10-01] MEDS: XALATAN OPHTHALMIC SOLUTION 1 DROP BOTH EYES (22:16)
[2024-10-02] VITALS (11 sets, daily range): BP systolic 81–124; BP diastolic 47–76; BMI 24.9
--- NOTE | 2024-10-02 | PTCARENOTE ---
Patient OOB multiple times to BSC with two staff members; Patient remains on room air, occasional harsh cough noted, patient dyspneic on exertion; Patient denies numbness and/or tingling to all extremities; Groin sites open to air, soft to
palpation, no hematoma noted; Right pedal pulse obtainable with doppler, left popliteal pulse palpable; Patient remains NSR on the employment advisor; Call vazquez within reach; Plan of care ongoing
[2024-10-02 04:27] LABS: ALT (SGPT) 37 U/L (0-35); AST (SGOT) 39 U/L (14-36); Albumin 2.8 g/dl (3.5-5.0); Alkaline Phosphatase 81 U/L (38-126); Blood Urea Nitrogen 18 mg/dl (7-17); Calcium 8.5 mg/dl (8.4-10.2); Carbon Dioxide 23 mmol/L (22-30); Chloride 111 mmol/L (98-107); Estimated Creatinine Clearance 36 ml/min; Glucose 98 mg/dl (70-99); Sodium 141 mmol/L (135-145); Total Bilirubin 1.3 mg/dl (0.2-1.3); Total Protein 4.9 g/dl (6.3-8.2); eGFR 49.86
[2024-10-02] MEDS: VITAMIN B-12 1000 MCG PO (09:01)
[2024-10-02] MEDS: PLETAL 100 MG PO (09:01)
[2024-10-02] MEDS: COZAAR 25 MG PO (09:01)
[2024-10-02] MEDS: PROTONIX 40 MG PO (09:01)
[2024-10-02] MEDS: MIRALAX TUBE (09:02)
[2024-10-02] MEDS: COREG 3.125 MG PO (09:02)
[2024-10-02] MEDS: LIPITOR 40 MG PO (09:02)
[2024-10-02] MEDS: PLAVIX 75 MG PO (09:02)
[2024-10-02] MEDS: LOW STRENGTH ASPIRIN 81 MG PO (09:02)
[2024-10-02] MEDS: TIMOPTIC 0.5% OPHTHALMIC SOLUTION 1 DROP OPHTH (09:03)
--- NOTE | 2024-10-02 11:03 | W.PN.HOSP.TC ---
Today's Communication/Plan
-
dc to [facility]
OP cards f/u
Assessment / Plan
Assessment / Plan
Physical Exam
General: no acute distress, appears relatively comfortable
HEENT: Bruising Ecchymosis around face healing
Pulm: not using accessory muscle
Cardio: NSR on tele
Abd/pelvis: non distended
Ext: s/p left BKA, cool right foot, LUE cast in place
Neuro: Awake alert conversant
IMPRESSION:
84F former smoker LLE BKA CVA HTN asymptomatic carotid stenosis b/l, subclavian steal syndrome, vertebral artery aneurysm transferred from [facility] due to concern NSTEMI acute HFrEF. Originally patient was admitted to [place] following
mechanical fall resulting in Left Radial Fracture. S/P ORIF patient developed dyspnea chest tightness troponin elevation concerning for NSTEMI with associate ECHO noting reduced EF. Transferred here for cath, patient was noted to have severe CAD,
developed ventricular fibrillation and ultimately required intubation for airway protection. Stent was placed in left main in process. Patient subsequently admitted to CVICU on amio and nitro gtt with impella. NGT tube was complicated with
epistaxis so OG tube was placed instead. Patient since improved, extubated, downgraded to IMU.
PLAN:
#NSTEMI
#Multivessal CAD
#Left Main Disease s/p stent placement
#Vfib
#HTN
#Shock suspect cardiogenic
#Acute HFrEF
CVICU admit since improved stable for downgrade IMU 09/26/24
briefly treated with amio and nitro in slab puller
Impella completed as per cardio
weaned off Levophed
Troponin trended to peak 35.400
asa plavix. Tolerating Coreg so far. stop toprol. Repeat ECHO noted.
Restarted on losartan and tolerating BP so far
BP holding so far.
cardio eval appreciated
Villavicencio discontinued, passed trial of void 09/26/24
daily weights I/O fluid restriction
diuresis as necessary per cardio
#Ventilator dependent respiratory failure
CXR appreciated possible left lower lobe subsegmental atelectasis and/or small left pleural
Inspector Process eval appreciated extubated 09/25 to high flow
gradually weaned down to midflow and now on room air.
Tolerating diet.
aspiration precautions
#Lactic acidosis
likely 2/2 shock as above
resolved
#Anemia
#Acute blood loss anemia 2/2 epistaxis as below
monitor H&H
transfuse goal >=8 d/t cardiac hx
Required 3 separate transfusions over the course of hospitalization
Lasix given with transfusions given heart failure
Hgb stable at 10.6
#Epistaxis
ENT eval appreciated
persistent bleeding believed to be due to posterior epistaxis as a result of traumatic NG tube placement.
Right nasal packing applied since removed after 3 days, epistaxis resolved s/p short course of antibiotics.
#Mild Leukocytosis however patient developed Fever in association with tachycardia concerning for possible Sepsis (less likely)? aspiration pna/pnuemonitis
#History concerning for aspiration
Follow Blood cultures NGTD and sputum culture repeated
IV Tylenol once for fever, since resolved
Empiric Unasyn de-escalated to Augmentin and further abx stopped.
WBC stabilized.
#Hx HTN
#Hypotension
midodrine tapered to BID with holding parameter SBP>100 or HR<55
cont coreg/losartan
#Hyperglycemia resolved
A1c 5.5
sliding scale completed
#CKD 3
monitor renal function
Cr baseline Cr 1.2-1.1
avoid nephrotoxic agents as possible
cr stabilized.
#Right Shoulder pain
#hx fall originally admitted to [place] and treated for Lt radial fx s/p ORIF before transfer here for NSTEMI as above
Shoulder X-ray noted no acute abn's, advance arthritis noted
lidocaine patch
pain control
cont PT/OT
OP ortho f/u with primary surgeon
Significant hx PAD, vascular dz
HX CVA
Lt BKA
asymptomatic carotid stenosis b/l
subclavian steal syndrome
Cont Plateal
PT/OT appreciated Acute Rehab
dvt ppx SCD
gi ppx Protonix
Full Code
Dispo- acute rehab on discharge.
More than 30 minutes spent in discharge including
Final examination of the patient
Summarizing hospital stay
Instructions for continuing care to all relevant caregivers
Preparation of discharge records, prescriptions, and referral forms
Total time spent (in minutes): 52
Anticipated Discharge: Today
Subjective/Interval History
-
Date of Service: October 02, 2024
no overnight events
bp stable
Objective Data
-
Labs:
Laboratory Results
10/02/24
03:32
Sodium 141
Potassium 4.0
Chloride 111 H
Carbon Dioxide 23
BUN 18 H
Creatinine 1.1 H
Glucose 98
Calcium 8.5
Total Bilirubin 1.3
AST 39 H
ALT 37 H
Alkaline Phosphatase 81
Vital Signs:
Vital Signs
Temp Pulse Resp BP Pulse Ox
99.5 F 91 20 124/67 94
10/02/24 07:38 10/02/24 08:00 10/02/24 07:38 10/02/24 07:40 10/02/24 08:51
I&O
10/01/24 10/02/24 10/03/24
06:59 06:59 06:59
Intake Total 460 / 460 480 / 480
Output Total 1150 / 1150
Balance -690 / -690 480 / 480
--- NOTE | 2024-10-02 11:10 | W.DCSUMMARY ---
Discharge Summary
Discharge Data
Date of Admission: 09/23/24
Date of Discharge: 10/02/24
-
Pending Results: No
Hospital Course
84-year-old female past medical history of left BKA, peripheral arterial disease status post stent placement, history of stroke, primary hypertension, carotid artery stenosis, subclavian steal syndrome who presented here from [facility].
Patient presented to [facility] after mechanical fall. Patient was found to be hypotensive with chest pain. Patient had a left radial fracture. Patient underwent surgery for the left radial fracture at [facility]. Patient underwent ORIF
and subsequently afterwards patient developed shortness of breath chest tightness of troponin were found to be elevated. Patient was found to be in NSTEMI and was transferred here for cardiac catheterization. Patient developed hypotensive and
underwent V-fib arrest status post ACLS protocol activation status post CPR and 1 shock was given. Patient was intubated. Patient had Impella placed in the [facility]. Patient had left main disease status post stent placement. Patient was admitted
to CVICU. Status post extubation. Patient was stable post extubation. Patient was continue aspirin and Plavix. Patient lactic acidosis resolved. Patient had episode of epistaxis due to posterior epistaxis which was deemed secondary to traumatic
NG tube placement. Right nasal packing was applied. Patient received short course of antibiotics and epistaxis was resolved. Patient infectious workup blood cultures sputum cultures were negative. Patient blood pressure stabilized and she was
able to be weaned off Levophed and midodrine. Patient creatinine remained stable. Patient was started on carvedilol and metoprolol was discontinued. Echo 09/29/24: EF 45 to 50%, global hypokinesis, normal RV size and function, normal pericardium
without effusion. Losartan was restarted however patient became hypotensive and thus it was discontinued. Patient with anemia and also required 2 units of PRBC blood transfusion. Patient was eval by physical and Occupational Therapy. Patient be
discharged to acute rehab.
Discharge Plan
-
Patient Disposition: Acute Rehab Facility
Discharge Diagnosis/Procedures: NSTEMI status post angioplasty with stent to left main status post Impella placement status post removal
Ventricular fibrillation status post intubation status post extubation
Cardiogenic shock
Acute heart failure exacerbation
Lactic acidosis
Epistaxis
Leukocytosis
Hypotension
Right shoulder pain
Wrist fracture status post left radial ORIF
Anemia status post blood transfusion
Condition: Fair
Diet: Low Cholesterol, 2 Gram Sodium and Restrict fluids to 48 oz
Driving Restrictions: No driving
Other Services: PT, OT and Cardiac Rehab
Specialty Instructions: Weigh Daily- Call MD for wt gain/loss 3 lbs overnight/5 lbs in 1 week
Referrals:
[facility], Acute Rehab @ [place] [Other]
Chantel Roe DO [Family Provider] - in less than 1 week
Jimmy Meraz DO [Affiliate] - in two to four weeks (I called Dr. Meraz' office on 10/01/24 and asked them to call me back or to call your daughter Jayna to schedule an appt to see Dr. Meraz in about 2 weeks, await call back.)
Additional Discharge Medication Instructions: Norvasc and losartan was discontinued.
Prescriptions:
New
cyanocobalamin (vitamin B-12) 1,000 mcg Tablet
30 mcg PO DAILY 30 Days Qty: 30 0RF
clopidogrel 75 mg Tablet
75 mg PO DAILY 30 Days Qty: 30 0RF
Rx Instructions:
FOR 30 DAYS
carvedilol 3.125 mg Tablet
3.125 mg PO BID 30 Days Qty: 60 0RF
Rx Instructions:
FOR 30 DAYS
pantoprazole 40 mg Tablet,Delayed Release (Dr/Ec)
40 mg PO DAILY 30 Days Qty: 30 0RF
Continued
atorvastatin 40 mg Tablet
40 mg PO DAILY
cilostazol 100 mg Tablet
100 mg PO BID
aspirin 81 mg Tablet,Delayed Release (Dr/Ec)
81 mg PO DAILY
epinephrine [EpiPen] 0.3 mg/0.3 mL Auto-Injector
0.3 mg IM Q5-15M PRN (Reason: allergic reaction)
timolol maleate (PF) 0.5 % Dropperette
1 drp OPHTHALMIC (EYE) Q12H
cholecalciferol (vitamin D3) 50 mcg (2,000 unit) Tablet
50 mcg PO DAILY
omega 4-qag-bho-fish oil 900-1,400 mg Capsule,Delayed Release(Dr/Ec)
1 cap PO DAILY
ascorbic acid (vitamin C) 500 mg Capsule
500 mg PO DAILY
latanoprost (PF) 0.005 % Dropperette
1 drp OPHTHALMIC (EYE) HS
Discontinued
amlodipine 5 mg Tablet
5 mg PO DAILY
losartan 25 mg Tablet
25 mg PO DAILY
Discharge Orders:
Discharge Patient (As Directed); Ordered 10/02/24
Ordered By: Eulalio Briseno
Care Plan Goals
Care Plan Goals:
Problem: Readiness for enhanced knowledge related to diagnosis and treatment plan
Goal: Understand your diagnosis and treatment plan needs, including medications if applicable.
Instructions: Know your diagnosis, underlying causes and treatment plan options, including medications if applicable. Consult with your health care team to learn about your diagnosis and treatment plan, including medications if applicable.
Discharge Date and Time
Discharge Date/Time: 10/02/24 15:10
Print Language: ROMANSH
--- NOTE | 2024-10-02 11:10 | W.PN.CARDCBS ---
Addendum entered and electronically signed by Corey Curran MD 10/02/24 11:16:
BP 81 systolic. Will hold losartan. Should be able to be discharged later today.
Original Note:
Today's Communication / Plan
-
Stable cardiology status for transfer to [facility]
Impression / Plan
-
PCP: Chantel Montelongo DO
CDY: Jimmy Meraz DO (new to )
Impression:
Transfer from [facility] to after unwitnessed fall while walking her dog 09/23/2024
Cardiogenic shock with in hospital VF arrest requiring intubation 09/23/2024
Acute HFrEF
Ischemic cardiomyopathy EF 35%, 45-50% on repeat echo
Critical ostial left main disease on cardiac catheterization
status post 4 mm Husam CAREN to left main with Impella support 09/23/2024
Removal of Impella device 09/24/2024
post ORIF L radius 09/20/24 after mechanical fall
bilateral carotid artery stenosis
Right Subclavian steal syndrome
CVA
HTN
LLE BKA
PVD h/o stent
Cardiac catheterization 09/23/2024: LM 80 to 90% ostial stenosis status post 4.0 x 12 mm Husam drug-eluting stent. LAD: Patent. Left circumflex moderate nonobstructive luminal irregularities. RCA: Patent.
HEMODYNAMIC FINDINGS (mmHg):RA(a,v,m): 18, 14, 13; RV(s/d,EDP): 55/11, 20; PA(s/d/m): 50/31, 35; PCWP(a,v,m): 24, 28, 24; LV(s/d,EDP): 98/28, 44; Ao(s/d,m): 98/54, 69;
Oxygen Saturations (mg/dl): PA: 58% on 4 L of oxygen by nasal cannula; LV: 93% on 4 L of oxygen by nasal cannula
Cardiac Output/Index (l/min / l/min/m2): Estimated Yolanda Method: 4.3 /2.4
Echo 09/23/24: GVH study, EF 35% with new wall motion abnormalities
Echo 09/24/24: EF 45-50%, akinesis of mid to apical inferoseptal and anteroseptal and apical brothers, anterior hypokinesis, Impella in place, valves not assessed in detail, RV appeared normal
Echo 09/29/24: EF 45 to 50%, global hypokinesis, normal RV size and function, normal pericardium without effusion
Plan:
Stable cardiology status for transfer to [facility]
Blood pressure and heart rate adequate
Discussed with primary service
Will need follow-up up at [place] after rehab stay has been completed
Progress Note - Hand Paint Mixer
Subjective
Date of Service: October 02, 2024
No chest pain or shortness of breath
Objective
Labs:
10/01/24 05:03
10/02/24 03:32
Labs
Hgb 10.6 g/dL (12.0-16.0) L 10/01/24 05:03
Hct 32.1 % (37.0-47.0) L 10/01/24 05:03
Plt Count 268 10^3/uL (130-400) D 10/01/24 05:03
PT 15.2 Sec (11.4-14.6) H 09/23/24 21:49
INR 1.17 09/23/24 21:49
APTT 27.0 Sec (23.4-35.0) 09/24/24 09:29
Sodium 141 mmol/L (135-145) 10/02/24 03:32
Potassium 4.0 mmol/L (3.5-5.1) 10/02/24 03:32
BUN 18 mg/dl (7-17) H 10/02/24 03:32
Creatinine 1.1 mg/dL (0.6-1.0) H 10/02/24 03:32
Glucose 98 mg/dl (70-99) 10/02/24 03:32
Vital Signs and I&O:
Vital Signs
Temp Pulse Resp BP Pulse Ox
97.9 F 91 20 124 93
10/02/24 11:05 10/02/24 08:00 10/02/24 11:05 10/02/24 07:40 10/02/24 11:05
Vital Signs
Temp Pulse Resp BP Pulse Ox
97.9 F 91 20 124 93
10/02/24 11:05 10/02/24 08:00 10/02/24 11:05 10/02/24 07:40 10/02/24 11:05
Intake & Output
09/30/24 10/01/24 10/02/24 10/03/24
06:59 06:59 06:59 06:59
Intake Total 1120 / 1120 460 / 460 480 / 480
Output Total 950 / 950 1150 / 1150
Balance 170 / 170 -690 / -690 480 / 480
Physical Exam
Physical Exam
General: Well developed, well nourished in NAD.
Neck: Supple, no JVD, HJR, carotids +2 B/L, no bruits bilaterally.
Heart: Non displaced PMI, RRR, no murmurs, No S3, S4, no rubs.
Lungs: Scattered rhonchi at the bases
Extremities: No clubbing, cyanosis or edema bilaterally.
Neuro: Grossly nonfocal, awake, alert and oriented x3.
--- NOTE | 2024-10-02 11:25 | CM ---
CM following for DC planning needs.
PMR evaluation completed.
Submitted request for acute rehab to [facility]; obtained authorization for x5 days acute rehab level of care 10/02-10/06; auth# [id number].
Bed available at [facility] for admission today.
Met w/ patient and family at bedside.
Reviewed plan to transfer to [facility] today.
PLAN: [facility] @
--- NOTE | 2024-10-02 16:06 | PTCARENOTE ---
Pt seen by Drs. Curran and Suzanna. BP 81/47 @11:30, pt received all meds this morning including new cozaar. pt asymptomatic, BP recovered to 115/68 . notified, cozaar discontinued. Report called to Toña in [facility]. Midline catheter
removed by IV team, right forearm IV and telemetry removed by RN. Pt transported to [facility] via wheelchair with all her belongings, 2 hearing aides and 2 leg prostheses.
== END 2024-10-02 15:10 | DRG 215 ==
LOC: IVU 18:04
PROVIDERS: Internal Medicine; Internal Medicine Cardiovascular Disease; Internal Medicine Interventional Cardiology; Nurse Practitioner; Nurse Practitioner Adult Health; Physician Assistant Medical; ADMITTING PHYSICIAN Internal Medicine Interventional Cardiology; ATTENDING PHYSICIAN Hospitalist; CONSULT PHYSICIAN Internal Medicine; CONSULT PHYSICIAN Physical Medicine & Rehabilitation; FAMILY PHYSICIAN Family Medicine; OTHER PHYSICIAN Otolaryngology
PROC: 5A0221D Assistance with Cardiac Output using Impeller Pump, Continuous (ICD-10-PCS; 2024-09-23)
PROC: 3E033XZ Introduction of Vasopressor into Peripheral Vein, Percutaneous Approach (ICD-10-PCS; 2024-09-23)
PROC: 0DH67UZ Insertion of Feeding Device into Stomach, Via Natural or Artificial Opening (ICD-10-PCS; 2024-09-23)
PROC: 5A1945Z Respiratory Ventilation, 24-96 Consecutive Hours (ICD-10-PCS; 2024-09-23)
PROC: 0BH17EZ Insertion of Endotracheal Airway into Trachea, Via Natural or Artificial Opening (ICD-10-PCS; 2024-09-23)
PROC: 027034Z Dilation of Coronary Artery, One Artery with Drug-eluting Intraluminal Device, Percutaneous Approach (ICD-10-PCS; 2024-09-23)
PROC: B2151ZZ Fluoroscopy of Left Heart using Low Osmolar Contrast (ICD-10-PCS; 2024-09-23)
PROC: 5A2204Z Restoration of Cardiac Rhythm, Single (ICD-10-PCS; 2024-09-23)
PROC: 30243N1 Transfusion of Nonautologous Red Blood Cells into Central Vein, Percutaneous Approach (ICD-10-PCS; 2024-09-23)
PROC: 4A023N8 Measurement of Cardiac Sampling and Pressure, Bilateral, Percutaneous Approach (ICD-10-PCS; 2024-09-23)
PROC: 5A12012 Performance of Cardiac Output, Single, Manual (ICD-10-PCS; 2024-09-23)
PROC: 02HA3RZ Insertion of Short-term External Heart Assist System into Heart, Percutaneous Approach (ICD-10-PCS; 2024-09-23)
PROC: B2111ZZ Fluoroscopy of Multiple Coronary Arteries using Low Osmolar Contrast (ICD-10-PCS; 2024-09-23)
PROC: 4A023N6 Measurement of Cardiac Sampling and Pressure, Right Heart, Percutaneous Approach (ICD-10-PCS; 2024-09-24)
PROC: 02PA3RZ Removal of Short-term External Heart Assist System from Heart, Percutaneous Approach (ICD-10-PCS; 2024-09-24)
PROC: 5A0935A Assistance with Respiratory Ventilation, Less than 24 Consecutive Hours, High Flow/Velocity Cannula (ICD-10-PCS; 2024-09-25)
PROC: 30233N1 Transfusion of Nonautologous Red Blood Cells into Peripheral Vein, Percutaneous Approach (ICD-10-PCS; 2024-09-25)
DX: I21.4 Non-ST elevation (NSTEMI) myocardial infarction (principal); I49.01 Ventricular fibrillation; I50.23 Acute on chronic systolic (congestive) heart failure; J96.01 Acute respiratory failure with hypoxia; R57.0 Cardiogenic shock; J69.0 Pneumonitis due to inhalation of food and vomit; S52.572A Other intraarticular fracture of lower end of left radius, initial encounter for closed fracture; Z99.11 Dependence on respirator [ventilator] status; E87.20 Acidosis, unspecified; I97.790 Other intraoperative cardiac functional disturbances during cardiac surgery; N17.9 Acute kidney failure, unspecified; D62 Acute posthemorrhagic anemia; I13.0 Hypertensive heart and chronic kidney disease with heart failure and stage 1 through stage 4 chronic kidney disease, or unspecified chronic kidney disease; I25.10 Atherosclerotic heart disease of native coronary artery without angina pectoris; R04.0 Epistaxis; R73.9 Hyperglycemia, unspecified; I65.23 Occlusion and stenosis of bilateral carotid arteries; I34.0 Nonrheumatic mitral (valve) insufficiency; I70.209 Unspecified atherosclerosis of native arteries of extremities, unspecified extremity; K21.9 Gastro-esophageal reflux disease without esophagitis; N18.30 Chronic kidney disease, stage 3 unspecified; I25.5 Ischemic cardiomyopathy; M25.511 Pain in right shoulder; S00.83XA Contusion of other part of head, initial encounter; D72.829 Elevated white blood cell count, unspecified; Y65.8 Other specified misadventures during surgical and medical care; Y71.0 Diagnostic and monitoring cardiovascular devices associated with adverse incidents; Y92.234 Operating room of hospital as the place of occurrence of the external cause; W01.0XXA Fall on same level from slipping, tripping and stumbling without subsequent striking against object, initial encounter; Y93.K1 Activity, walking an animal; Y92.414 Local residential or business street as the place of occurrence of the external cause; Z87.891 Personal history of nicotine dependence; I25.2 Old myocardial infarction; Z86.73 Personal history of transient ischemic attack (TIA), and cerebral infarction without residual deficits; Z89.512 Acquired absence of left leg below knee; Z91.030 Bee allergy status; Z79.82 Long term (current) use of aspirin
CPT/HCPCS: 93308; 33990; 33992; 36600; 71045; 73030; 80048; 80053; 80061; 80076; 82330; 82607; 82728; 82746; 82805; 82962; 83036; 83540; 83550; 83605; 83615; 83735; 83880; 84100; 84132; 84478; 84484; 85014; 85018; 85025; 85027; 85347; 85379; 85384; 85610; 85730; 86850; 86900; 86901; 86920; 87040; 87070; 87205; 92526; 92610; 92950; 93005; 93451; 93460; 94002; 94003; 97110; 97116; 97163; 97167; 97530; 97535; C1725; C1760; C1769; C1874; C1887; C1892; C1894; C9600; P9016; P9047; Q9967

== ENCOUNTER 2025-10-01 08:02 | Outpatient (REF) | payer OTHER, SELFPAY | END 2025-10-01 23:59 | disposition home or self-care (01) | LOC: WOUND 08:02 | PROVIDERS: ATTENDING PHYSICIAN Registered Nurse | DX: L97.312 Non-pressure chronic ulcer of right ankle with fat layer exposed (principal); I77.9 Disorder of arteries and arterioles, unspecified; N18.30 Chronic kidney disease, stage 3 unspecified; R73.9 Hyperglycemia, unspecified | CPT/HCPCS: 99204 ==

== ENCOUNTER → 2025-10-09 08:34 | Outpatient (REF) | payer OTHER, SELFPAY | LOC: RAD 08:34 | PROVIDERS: ATTENDING PHYSICIAN Registered Nurse; FAMILY PHYSICIAN Family Medicine; REFERRING PHYSICIAN Internal Medicine Cardiovascular Disease | DX: I73.9 Peripheral vascular disease, unspecified (principal); S81.801D Unspecified open wound, right lower leg, subsequent encounter; L97.312 Non-pressure chronic ulcer of right ankle with fat layer exposed; I77.9 Disorder of arteries and arterioles, unspecified | CPT/HCPCS: 93922; 93925 ==

== ENCOUNTER 2025-10-15 14:00 | Inpatient (IN) | payer OTHER, SELFPAY ==
[2025-10-15] VITALS (27 sets, daily range): BP systolic 106–146; BP diastolic 51–88; BMI 27.1
[2025-10-15 08:36] LABS: Hematocrit 38.5 % (37.0-47.0); Hemoglobin 12.6 g/dL (12.0-16.0); Mean Corp Hgb Conc. 32.7 g/dL (33.0-37.0); Mean Corpuscular Volume 96.5 fL (81.0-99.0); Platelet Count 334 10^3/uL (130-400); Red Cell Dist. Width 12.6 % (11.5-14.5)
[2025-10-15 08:43] LABS: INR 1.12; PT 14.2 Sec (11.4-14.6)
[2025-10-15 08:44] LABS: APTT 29.1 Sec (23.4-35.0)
[2025-10-15 08:45] LABS: Blood Urea Nitrogen 45 mg/dl (7-17); Calcium 9.8 mg/dl (8.4-10.2); Carbon Dioxide 19 mmol/L (22-30); Chloride 110 mmol/L (98-107); Glucose 145 mg/dl (70-99); Potassium 4.8 mmol/L (3.5-5.1); Sodium 140 mmol/L (135-145); eGFR 37.10
--- NOTE | 2025-10-15 11:04 | W.SUR.PREOP ---
Pre-Operative Surgical Note
-
I have examined this patient prior to the performance of the scheduled procedure.
The patient's condition is unchanged from the time of the current History and
Physical and the patient is able to undergo the scheduled procedure.
Discussed with patient and her family indication for right lower extremity angiogram given wound. I discussed that the wound does not have a definitive typical characteristic ischemic appearance and location. However certainly there could be an
ischemic component preventing it from healing. Therefore discussed hopefully that with enhance perfusion it would heal but cannot guarantee that the only component. They understand that. I also discussed the procedure of angiography. Discussed
technical aspects, anticipated outcome/recovery. Discussed scenarios to be: #1 successful endovascular revascularization, #2 need for staged surgical bypass, #3 non reconstructible distal disease which may present persistent limb threat. Discussed
risks of the procedure including but not limited to bleeding, arterial injury/worsened or acute limb ischemia, renal failure. Baseline creatinine is slightly elevated at 1.4. Slightly heightened renal risk but will hydrate. She understands all
wishes to proceed.
--- NOTE | 2025-10-15 12:45 | W.SUR.POST ---
Surgical Immediate Post Op
Note
Pre Op Diagnosis: PAD
Post Op Diagnosis: PAD
Procedure Performed: RLE diagnostic arteriogram
Primary Surgeon: Paxton
Anesthesia: local and sedation
Estimated Blood Loss: <2cc
Fluids: see anesthesia flow sheet
Drains/Shunts: none
Specimens/Cultures: none
Doppler/Duplex/Angio (Y/N): Y
Complications: none
Operative Findings: No endovascular options
--- NOTE | 2025-10-15 14:26 | CON.CAR ---
Addendum entered and electronically signed by Tyler Pepper MD 10/15/25 17:24:
I saw and examined the patient.
The Coil Shaper's note was reviewed and I agree with the note.
Comment: Briefly, 85-year-old woman past medical history of VT/VF arrest and cardiogenic shock who subsequently underwent PCI of the left main 08/2024, ischemic cardiomyopathy with most recent LVEF 45-50% and PAD with prior left lower extremity BKA
who presents for evaluation of nonhealing wound on the right lower extremity. Underwent peripheral angiography with vascular surgery earlier today. Ongoing surgical planning for possible peripheral bypass pending results of CTA. Cardiology is
consulted for preoperative optimization and risk stratification.
No active cardiac complaints
Appears euvolemic on exam
Maintaining sinus rhythm on review of telemetry
Explained to patient and family at bedside that with history of ischemic heart disease, cardiomyopathy and prior VT arrest she would be at elevated risk for any surgery or intervention
Plan to check echo to reassess LV function prior to OR
Otherwise would continue current cardiac meds aspirin/Plavix and high intensity statin going forward
Discussed with family at bedside
Original Note:
Consultation
Consultation Request
Date/Time Consultation Performed: 10/15/25
Requesting Provider: Dr. Matta
Performing Provider: Radha Cook PA-C for Dr. Pepper
Reason for Consultation: preop eval
Medical History
-
Chief Complaint: R foot wound
History of Present Illness:
Patient is an 85-year-old female known to us from admission 08/2024. Patient had initially presented to [facility] after unwitnessed fall, found to rule in for NE and transferred to , developed cardiogenic shock with in-hospital VT arrest due to
critical ostial left main disease and underwent placement of left main stent with Impella support 09/23/2024. In the setting of NE she had an ischemic cardiomyopathy with EF of 35% which has improved to 45 to 50% by most recent echo in 2023. Most
recently she has had issues with a nonhealing right ankle wound. She has prior left BKA. She presented today for right lower extremity angiogram and unfortunately had no endovascular options. Vascular is planning for peripheral bypass surgery
next week. Cardiology was asked for preoperative evaluation. Several months ago, blood pressure was noted to be low and her Coreg was stopped with subsequent improvement. She denies chest pain, shortness of breath while doing normal activities at
home.
PMH:
R ankle wound
CAD with NE/Cardiogenic shock/VT arrest d/t critical ostial left main disease
status post 4 mm Husam CAREN to left main with Impella support 09/23/2024
Ischemic cardiomyopathy EF 35%, with improvement 45-50% on repeat echo
Chronic HFrEF
post ORIF L radius 09/20/24 after mechanical fall
bilateral carotid artery stenosis
Right Subclavian steal syndrome
CVA
HTN
PVD h/o stent
LLE BKA
Remote former smoker
Past Medical History
Past Medical History: Other (in HPI)
Social History
Tobacco: Former Smoker (remote)
Living: Alone
Employment: Retired
Allergies / Home Medications
Allergy/AdvReac Type Severity Reaction Status Date / Time
bee venom protein (honey bee) Allergy Swelling Verified 10/15/25 09:48
Iodinated Contrast Media Allergy 'allergic Verified 10/15/25 09:48
reaction,
need
benadryl'
�Medication �Instructions �Recorded �Confirmed �Type
aspirin 81 mg tablet,delayed 81 mg PO DAILY Blood Clot 09/23/24 10/15/25 History
release Prevention/Tx
atorvastatin 40 mg tablet 40 mg PO DAILY High Cholesterol 09/23/24 10/15/25 History
cholecalciferol (vitamin D3) 50 50 mcg PO DAILY Supplement 09/23/24 10/15/25 History
mcg (2,000 unit) tablet
cilostazol 100 mg tablet 100 mg PO BID Blood Clot 09/23/24 10/15/25 History
Prevention/Tx
epinephrine 0.3 mg/0.3 mL 0.3 mg IM Q5-15M PRN allergic 09/23/24 10/14/25 History
injection, auto-injector (EpiPen) reaction
latanoprost (PF) 0.005 % eye drops 1 drp ophthalmic (eye) HS Eye 09/23/24 10/15/25 History
in a dropperette Condition
omega 6-jcn-jxu-fish oil 900 1 cap PO DAILY Supplement 09/23/24 10/15/25 History
mg-1,400 mg capsule,delayed release
timolol maleate (PF) 0.5 % eye 1 drp ophthalmic (eye) Q12H Eye 09/23/24 10/15/25 History
drops in a dropperette Condition
acetaminophen 325 mg tablet 650 mg (2 x 325 mg) PO Q6HPRN PRN 10/07/24 10/15/25 Rx
mild pain 30 days #100 tabs
cyanocobalamin (vitamin B-12) 30 mcg (0.03 x 1,000 mcg) PO DAILY 10/07/24 10/15/25 Rx
1,000 mcg tablet Supplement 30 days #30 tabs
clopidogrel 75 mg tablet (Plavix) 75 mg PO DAILY 10/15/25 10/15/25 History
losartan 25 mg tablet (Cozaar) 25 mg PO DAILY 10/15/25 10/15/25 History
Review of Systems
-
History Source: Patient
All other systems: Negative unless noted
Physical Exam
Vital Signs
Temp Pulse Resp BP Pulse Ox
97.2 F 97 14 130/85 94
10/15/25 13:00 10/15/25 14:00 10/15/25 14:00 10/15/25 14:00 10/15/25 14:00
Lab Results
10/15/25 08:18
10/15/25 08:18
Physical Exam
General: No Apparent Distress and Comfortable
HEENT: Normocephalic, Anicteric and Moist Mucous Membranes
Respiratory: Clear and Non Labored Respirations
Cardiac: S1/S2 and Regular Rhythm
GI: Soft, Non Tender, Non Distended and Normal Bowel Sounds
Musculoskeletal: No Clubbing, No Cyanosis, No Edema and Other
Skin: Warm, Dry and Other (L BKA. RLE with erythema and dressing to R ankle)
Neuro: AO x 3
Impression / Plan
-
Primary Aquaculture Worker: Dr. Meraz
Assessment:
Nonhealing R ankle wound
RLE angiogram, chronically occluded R SFA, planned for fem pop bypass this admission
CAD with NE/Cardiogenic shock/VT arrest d/t critical ostial left main disease
status post 4 mm Wayne CAREN to left main with Impella support 09/23/2024
Ischemic cardiomyopathy EF 35%, with improvement 45-50% on repeat echo
Chronic HFrEF
post ORIF L radius 09/20/24 after mechanical fall
bilateral carotid artery stenosis
Right Subclavian steal syndrome
CVA
HTN
PVD h/o stent
LLE BKA
Remote former smoker
ECHO 09/29/24: Global hypokinesis, EF 45 to 50%, normal pericardium
ECHO 10/16/25: pending
Plan:
- Patient with nonhealing right ankle wound over the last several months presented today for right lower extremity angiogram. Found to have chronically occluded right SFA with no endovascular options, and plan for femoropopliteal bypass this
admission by vascular surgery
- Cardiology consulted for preoperative evaluation
- She has significant cardiac history as above with NE and VT arrest 08/2024 resulting in left main stent with Impella support. She reports since that time she has done well
- By last echo 09/2024, EF had improved from 35% to 45 to 50%
- Will repeat echo
-No complaints of chest pain or shortness of breath
- EKG 10/15/25 sinus tachycardia. Follow on telemetry. She had previously been on Coreg however it was stopped due to hypotension
- Creatinine 1.4. Will hold outpatient Cozaar for now
- Continue aspirin, Plavix, Lipitor
- reviewed last office visit from Dr. Meraz dated 09/16/25.
- d/w nursing. d/w vascular SPLICER APPRENTICE
Data Reviewed
-
EKG: Tracing Personally Visualized and interpreted
Medical Tests (Nuc Med, Echo etc): Report Reviewed by me
Labs: Labs Reviewed by me
Old Records: Reviewed
--- NOTE | 2025-10-15 15:12 | OR.RPT ---
Operative Report
Operative Report
PROCEDURE DATE: 10/15/2025
Preoperative diagnosis: Severe peripheral arterial disease with tissue loss right ankle, nonhealing wound.
Postoperative diagnosis: Same
Procedure:
1. Duplex assisted cannulation left common femoral artery.
2. Aortogram and pelvic angiogram.
3. Right lower extremity arteriogram.
4. Attempted to subintimal traversal of chronically occluded long segment superficial femoral artery.
5. Left femoral angiogram.
6. Supervision and interpretation.
Surgeon: Paxton
Soaker Hides: None
Complications: None
Anesthesia: Local, sedation
Fluoroscopy:
39.2 min
137 mGy
30.95 gy.cm2
Indications for procedure:
Chronic tissue loss right leg with peripheral arterial disease noted on noninvasive imaging. Therefore patient brought for angiography. Risk/benefits/alternatives also discussed. Patient understood all wished proceed.
Description of procedure:
Patient was identified, brought to the operating room. Placed on the table in the supine position. After the adequate administration of anesthesia, the patient was prepped and draped in the standard surgical fashion. A standard preoperative
timeout was undertaken and everybody was in agreement with the plan.
The left common femoral artery was accessed with a micropuncture kit under direct duplex ultrasound guidance. A 5 Nepali sheath was then advanced over a 0.035 inch wire, and a figueroa's hook catheter was advanced into the abdominal aorta.
Aortogram and pelvic angiogram was obtained. Findings as follows:
Infrarenal aorta: Patent with significant eccentric atherosclerotic plaque. Mildly ectatic but no definitive aneurysm. No stenosis or occlusion.
Right common iliac artery: Patent with severe eccentric plaque, but no stenosis identified.
Right external iliac artery: Patent with no significant stenosis.
Left common iliac artery: Patent with severe eccentric plaque, but no stenosis noted.
Left external iliac artery: Patent with no definitive stenosis.
Using a floppy angled hydrophilic wire, the right common femoral artery was cannulated and the catheter was advanced. I had to use a rim catheter in order to cannulate. I then advanced/exchanged for a glide catheter. Right lower extremity
arteriogram was obtained. Findings as follows:
Common femoral artery: Patent with no significant stenosis.
Profunda femoris artery: Patent with no significant stenosis. However, there was potentially an opacity near its origin that could represent plaque, but did not result in a typical hourglass like stenosis.
Superficial femoral artery: Chronically occluded. There was a nub indicating the origin but beyond here it was fully occluded. Reconstitution was noted in the distal superficial femoral artery. There was significant likely plaque stenosis or
focal occlusion just at the transition to the above-knee popliteal artery.
Popliteal artery: Above-knee popliteal artery, behind the popliteal artery, below-knee popliteal artery were diseased with plaque, especially the above-knee segment. However no definitive stenosis but opacification was slightly difficult given low
inflow.
Anterior tibial artery: Patent proximally, but occluded in its proximal third. In addition the proximal segment that was patent is very small. No reconstitution noted distally.
Tibial peroneal trunk: Patent with no significant stenosis. But again opacification somewhat limited.
Peroneal artery: Patent with no significant stenosis. Collateralization seen at the ankle.
Posterior tibial artery: Patent, somewhat eccentric calcified plaque apparent, but opacification difficult due to proximal obstruction. But it generally appeared patent throughout its course with no significant stenosis except at the ankle/foot
junction there may have been a focal heavy plaque stenosis.
At this point I felt it was worth an effort at revascularization. I selectively cannulated the profunda using a flopping of hydrophilic wire under roadmap assisted guidance. I then advanced my catheter. I then exchanged for a Storq wire and then
exchanged for an up and over 6 Nepali sheath which was positioned in the common femoral artery. Patient was given 5000 units of intravenous heparin. Now under roadmap assisted guidance I tried to cannulate the origin of the superficial femoral
artery. This would proved to be very challenging due to essentially or near flush occlusion. Initially I could not get my CXI catheter and glide catheter into engage the superficial femoral artery. I therefore then exchanged for a better angled
glide catheter. Then, I got a little bit of wire down beyond the origin but only about 2 cm. Maybe even less. However I could not get glide catheter to advance. I therefore then exchanged back for the CXI catheter. I then used a combination of
this and a floppy/stiff angled Glidewire's and was able to get a little bit more wire purchase and then was able to advance a CXI catheter finally. Once I advanced it about a centimeter or 2 into the vessel, I now had better stable positioning in
the vessel. (In the chronically occluded segment). I now used a flopping of hydrophilic wire was able to gain subintimal access. I was able to with moderate to great difficulty advance the wire subintimal he eventually down to the distal SFA. I
was able to follow with my CXI catheter. However I could not reenter the true lumen despite multiple attempts. I therefore then exchanged for a 0.018 inch wire and then advanced an Outback reentry catheter. I tried multiple times to try to get
the wire into the true lumen. I finally was able to get the wire into the true lumen, but could not withdraw the catheter. I realized this was a 0.018 inch wire and the catheter could not withdraw over this. Therefore I had to lose wire access
and then I regained it using a flopping of hydrophilic wire and a CXI catheter once I remove the Outback catheter. I then exchanged for a 0.014 inch BENCH ASSEMBLY INSPECTOR wire and then advanced the Outback catheter back. I then tried multiple times to reenter into
the true lumen but could not despite multiple attempts. There is severe calcified plaque and this made it very challenging. At this point I felt that there was no further endovascular option that was ideal. I did not think that retrograde access
was ideal or would be effective (and the patient had disease tibials as well). Therefore at this point I felt it may be best to work the patient up for candidacy for bypass surgery. At this point catheters were withdrawn. I withdrew the sheath to
the left external iliac artery over a Storq wire. Left femoral angiogram demonstrated good puncture in the left common femoral artery. We exchanged for a short 6 Nepali sheath and remove the wire. Sheath will be withdrawn and manual pressure
applied in the recovery room. Protamine was given reverse the heparin. Patient tolerated the procedure well.
--- NOTE | 2025-10-15 16:00 | WOUNDNOTE ---
L MIDDLE FINGER (PALM SIDE)
[2025-10-15] MEDS: NSS 1000 IV (16:27)
--- NOTE | 2025-10-15 16:39 | WOUNDNOTE ---
[facility] RN note: Patient seen around 1600 with RN Juan M. Patient admitted with RLE PAD. s/p RLE angiogram. L femoral angiogram. Patient followed by [facility].
See H&P for complete history.
PMH: L BKA 10 years ago, R ankle wound since July getting larger, CKD3.
Wound Location and type/assessment: Patient admitted with: R medial ankle wound to subcutaneous layer, pale pink with scattered yellow fibrin with some smaller ulcers adjacent. L BKA distal stump blanchable red. L middle finger along side of nail
bed with a purulent filled blister and local erythema.
Appetite: on low cholesterol diet.
Pressure redistribution devices in place: [employer] Accumax. Patient can turn self in bed and ambulates with LLE prosthesis. Patient on bedrest for 6 hours after angiogram.
Plan: R ankle dressing changed. Current wound care is Xeroform gauze and dry dressing daily. Protective silicone border foam applied to sacral/coccyx and R distal BKA stump. R heel off bed with pillow.
Updated and confirmed R ankle order with Mely Do, vascular RN REGISTRY who confirmed they plan to consult a hand surgeon for L middle finger infection.
Care plan to be updated and will follow peripherally as needed.
Note to case management requested for discharge: VN if not already in place.
Recommend follow up at wound care center upon discharge.
--- NOTE | 2025-10-15 18:05 | PTCARENOTE ---
Pt arrived to 2sout at 1450 s/p RLE arteriogram. Pt bedrest and flat until 1534. HOB raised to 30 degrees after 1534. LLE remains straight in bed until 1934. Left groin site soft with no drainage. Gauze and tegaderm dressing c/d/i. Left popliteal
pulse and right DP pulse present with doppler. Left middle finger with purulent drainage filled blister assessed. Right medial ankle undressed by oracle business analyst and redressed with xeroform, abd pad and spandage assessed. SR with 1 degree on the
monitor. Pt tachy in the 110's. Vascular SHERIFF'S DETECTIVE, Anmol, notified and advised to reach out to business administration professor vascular if HR trends up. PW on pt while bedrest. Admission questions answered. Bed locked and in lowest position. Call vazquez within reach. Care ongoing.
[2025-10-15] MEDS: TIMOPTIC 0.5% OPHTHALMIC SOLUTION 1 DROP OPHTH (19:48)
[2025-10-15] MEDS: HEPARIN 5000 UNITS SC (19:48)
[2025-10-15] MEDS: XALATAN OPHTHALMIC SOLUTION 1 DROP BOTH EYES (21:28)
[2025-10-16] MEDS: NSS 1000 IV (02:51)
[2025-10-16 03:04] VITALS: BP 124/82
[2025-10-16 06:00] VITALS: BMI 26.2
[2025-10-16 07:30] VITALS: BP 116/75
[2025-10-16 08:33] LABS: Hematocrit 33.4 % (37.0-47.0); Hemoglobin 11.1 g/dL (12.0-16.0); Mean Corp Hgb Conc. 33.2 g/dL (33.0-37.0); Mean Corpuscular Volume 96.0 fL (81.0-99.0); Platelet Count 324 10^3/uL (130-400); Red Cell Dist. Width 13.2 % (11.5-14.5)
[2025-10-16] MEDS: ASPIR LOW (ENTERIC COATED) 81 MG PO (08:37)
[2025-10-16] MEDS: VITAMIN B-12 1000 MCG PO (08:37)
[2025-10-16] MEDS: HEPARIN 5000 UNITS SC ×2 (08:37→19:44)
[2025-10-16] MEDS: PLAVIX 75 MG PO (08:37)
[2025-10-16] MEDS: VITAMIN D3 (cholecalciferol) 50 MCG PO (08:37)
[2025-10-16] MEDS: LIPITOR 40 MG PO (08:37)
[2025-10-16] MEDS: TIMOPTIC 0.5% OPHTHALMIC SOLUTION 1 DROP OPHTH ×2 (08:38→19:44)
--- NOTE | 2025-10-16 08:53 | W.PN.CARDCBS ---
Addendum entered and electronically signed by Tyler Pepper MD 10/16/25 11:47:
I saw and examined the patient.
The Tractor Driver's note was reviewed and I agree with the note.
Comment: Briefly, 85-year-old woman past medical history of VT/VF arrest and cardiogenic shock who subsequently underwent PCI of the left main 08/2024, ischemic cardiomyopathy with recovered LV function and PAD with prior left lower extremity BKA
who presents for evaluation of nonhealing wound on the right lower extremity. Underwent peripheral angiography with vascular surgery earlier today. Ongoing surgical planning for possible peripheral bypass pending results of CTA. Cardiology is
consulted for preoperative optimization and risk stratification.
No active cardiac complaints
Appears euvolemic on exam
Maintaining sinus rhythm on review of telemetry
With history of ischemic heart disease, recovered cardiomyopathy and prior VT arrest she would be at elevated risk for any surgery or intervention
Echo 10/16/2025 shows recovery of LV function with EF of 63%. No severe valvular pathology. Estimated pulmonary pressures are normal.
Would continue current cardiac meds - aspirin/Plavix and high intensity statin going forward
Discussed with family at bedside
Original Note:
Today's Communication / Plan
-
Echo today
For possible peripheral bypass later this admission
Impression / Plan
-
Primary Electrical Power Engineer: Dr. Meraz
Assessment:
Nonhealing R ankle wound
RLE angiogram, chronically occluded R SFA, planned for fem pop bypass this admission
CAD with AK/Cardiogenic shock/VT arrest d/t critical ostial left main disease
status post 4 mm Husam CAREN to left main with Impella support 09/23/2024
Ischemic cardiomyopathy EF 35%, with improvement 45-50% on repeat echo
Chronic HFrEF
post ORIF L radius 09/20/24 after mechanical fall
bilateral carotid artery stenosis
Right Subclavian steal syndrome
CVA
HTN
PVD h/o stent
LLE BKA
Remote former smoker
ECHO 09/29/2024: Global hypokinesis, EF 45 to 50%, normal pericardium
ECHO 10/16/2025: Study pending
Plan:
- Patient has had nonhealing R ankle wound and presented for RLE angiogram. Found to have chronically occluded R SFA with no endovascular options. Plan for possible peripheral bypass this admission. Cardiology consulted for pre-op evaluation.
- Significant cardiology history noted w/ h/o AK and VT arrest resulting in LM stent and Impella support 08/2024. Stable since that time.
- Prior echo 09/2024 with EF 45-50%. Repeat echo pending today. 10/16.
- Remains chest pain free. No SOB.
- Continues on aspirin and plavix.
- Losartan on hold. Previously on coreg, stopped due to hypotension. BP stable at this time.
- Given cardiac history, likely will be higher risk for surgery. Await echo results.
Progress Note - Electrical Power Engineer
Subjective
Date of Service: October 16, 2025
Objective
Labs:
10/16/25 07:42
Labs
Hgb 11.1 g/dL (12.0-16.0) L 10/16/25 07:42
Hct 33.4 % (37.0-47.0) L 10/16/25 07:42
Plt Count 324 10^3/uL (130-400) 10/16/25 07:42
PT 14.2 Sec (11.4-14.6) 10/15/25 08:18
INR 1.12 10/15/25 08:18
APTT 29.1 Sec (23.4-35.0) 10/15/25 08:18
Sodium 140 mmol/L (135-145) 10/15/25 08:18
Potassium 4.8 mmol/L (3.5-5.1) 10/15/25 08:18
BUN 45 mg/dl (7-17) H 10/15/25 08:18
Creatinine 1.4 mg/dL (0.6-1.0) H 10/15/25 08:18
Glucose 145 mg/dl (70-99) H 10/15/25 08:18
Vital Signs and I&O:
Vital Signs
Temp Pulse Resp BP Pulse Ox
98 F 66 18 116/75 98
10/16/25 07:30 10/16/25 07:30 10/16/25 07:30 10/16/25 07:30 10/16/25 07:30
Vital Signs
Temp Pulse Resp BP Pulse Ox
98 F 66 18 116/75 98
10/16/25 07:30 10/16/25 07:30 10/16/25 07:30 10/16/25 07:30 10/16/25 07:30
Intake & Output
10/14/25 10/15/25 10/16/25 10/17/25
06:59 06:59 06:59 06:59
Intake Total 1909 480 / 480
Balance 1909 480 / 480
Physical Exam
Physical Exam
GEN: No distress
LUNGS: No audible wheeze
CV: SR on tele
--- NOTE | 2025-10-16 09:01 | W.PN.VS ---
Addendum entered and electronically signed by Oracio Matta MD 10/16/25 16:45:
Note plan communicated to patient and daughters at bedside.
Addendum entered and electronically signed by Oracio Matta MD 10/16/25 16:37:
Seen and examined with CONTRACT DRIVER. Agree with findings as noted below. Workup as planned. Steroid prep and CTA tomorrow. Marginal vein conduit, will check left greater saphenous vein as well. Likely will need prosthetic graft. Tentative plan for OR
Sunday. Appreciate cardiology evaluation and workup.
Original Note:
Today's Communication / Plan
-
Discussed with Dr Matta
Assessment/Plan
-
POD 1 diag agram
Plan:
ECHO today
Appreciate cardiology eval
Vein mapping today
Planning for bypass sunday
Subjective Data
-
Date of Service: October 16, 2025
Pt seen at bedside this am. Pt offers no complaints at this time. No evnets overnight.
Objective Data
-
Vital Signs
Temp Pulse Resp BP Pulse Ox
98 F 66 18 116/75 98
10/16/25 07:30 10/16/25 07:30 10/16/25 07:30 10/16/25 07:30 10/16/25 07:30
Intake and Output
10/15/25 10/16/25 10/17/25
06:59 06:59 06:59
Intake Total 1909 480 / 480
Balance 1909 480 / 480
Intake:
Oral fluids 480 / 480 480 / 480
IV fluids (Total) 1430 / 1430
Normosol 150 / 150
Other:
How many times incontinent 1
SATURATED amount urine
Number of approximated MODERATE 1
amounts of urine
Lab Results
10/16/25 07:42
Calcium 9.8 mg/dl (8.4-10.2) 10/15/25 08:18
Physical Exam
-
AAOx3
No tachypnea
No tachycardia
Abd soft
Groin site c/d/i, soft, flat
[2025-10-16 09:03] LABS: Blood Urea Nitrogen 42 mg/dl (7-17); Calcium 9.2 mg/dl (8.4-10.2); Carbon Dioxide 16 mmol/L (22-30); Chloride 116 mmol/L (98-107); Estimated Creatinine Clearance 35 ml/min; Glucose 91 mg/dl (70-99); Potassium 4.5 mmol/L (3.5-5.1); Sodium 141 mmol/L (135-145); eGFR 55.55
[2025-10-16 11:15] VITALS: BP 128/88
--- NOTE | 2025-10-16 11:23 | CM ---
social media project manager reviewed patient's chart and met with patient and patient states she lives alone in a bilevel home with 6 steps in and 6 steps to main level, patient with Left BKA goes to the wound care center once a week, patient is not sure if she
needs visiting nurses, patient is independent with adl's and uses a cane or walker with ambulation.
PCP: Chantel Roe
Pharmacy: [facility]
Plan; Home when stable and outpatient wound care center at [facility].
[2025-10-16 15:20] VITALS: BP 100/65
[2025-10-16] MEDS: NSS IV (17:11)
[2025-10-16] MEDS: XALATAN OPHTHALMIC SOLUTION 1 DROP BOTH EYES (21:49)
[2025-10-16 23:19] VITALS: BP 122/81
[2025-10-17 03:20] VITALS: BP 151/92
[2025-10-17 05:46] VITALS: BMI 26.8
[2025-10-17 07:49] VITALS: BP 129/84
[2025-10-17] MEDS: VITAMIN B-12 1000 MCG PO (08:57)
[2025-10-17] MEDS: TIMOPTIC 0.5% OPHTHALMIC SOLUTION 1 DROP OPHTH ×2 (08:57→20:32)
[2025-10-17] MEDS: VITAMIN D3 (cholecalciferol) 50 MCG PO (08:58)
[2025-10-17] MEDS: LIPITOR 40 MG PO (08:58)
[2025-10-17] MEDS: ASPIR LOW (ENTERIC COATED) 81 MG PO (08:58)
[2025-10-17] MEDS: PLAVIX 75 MG PO (08:58)
[2025-10-17] MEDS: HEPARIN 5000 UNITS SC ×2 (08:58→20:31)
[2025-10-17 09:01] LABS: Blood Urea Nitrogen 34 mg/dl (7-17); Calcium 9.9 mg/dl (8.4-10.2); Carbon Dioxide 19 mmol/L (22-30); Chloride 112 mmol/L (98-107); Estimated Creatinine Clearance 39 ml/min; Glucose 86 mg/dl (70-99); Potassium 4.6 mmol/L (3.5-5.1); Sodium 139 mmol/L (135-145); eGFR 55.55
[2025-10-17] MEDS: SOLU-CORTEF 200 MG IV ×2 (09:07→13:03)
[2025-10-17] MEDS: BENADRYL 50 MG IV (13:02)
--- NOTE | 2025-10-17 14:54 | W.PN.UPDATE ---
Update Note
Progress Note Update
Attempted to see patient
She was down getting CT
discussed with family member who indicates she has no complaints or concerns
[2025-10-17 15:53] VITALS: BP 128/81
[2025-10-17] MEDS: XALATAN OPHTHALMIC SOLUTION 1 DROP BOTH EYES (20:32)
[2025-10-17 23:09] VITALS: BP 113/61
[2025-10-18 05:33] VITALS: BMI 25.4
[2025-10-18 07:35] VITALS: BP 131/83
[2025-10-18 07:38] LABS: Blood Urea Nitrogen 41 mg/dl (7-17); Calcium 9.5 mg/dl (8.4-10.2); Carbon Dioxide 22 mmol/L (22-30); Chloride 113 mmol/L (98-107); Estimated Creatinine Clearance 29 ml/min; Glucose 88 mg/dl (70-99); Potassium 4.6 mmol/L (3.5-5.1); Sodium 142 mmol/L (135-145); eGFR 44.64
--- NOTE | 2025-10-18 08:15 | W.PN.UPDATE ---
Update Note
Progress Note Update
Vascular surgery progress note:
RLE wound
No complaints or concerns
CT yesterday with BP pop target, vein appears borderline in upper thigh
Plan:
possible bypass tomorrow
NPO at midnight
[2025-10-18] MEDS: VITAMIN B-12 1000 MCG PO (09:43)
[2025-10-18] MEDS: VITAMIN D3 (cholecalciferol) 50 MCG PO (09:43)
[2025-10-18] MEDS: ASPIR LOW (ENTERIC COATED) 81 MG PO (09:44)
[2025-10-18] MEDS: LIPITOR 40 MG PO (09:44)
[2025-10-18] MEDS: HEPARIN 5000 UNITS SC ×2 (09:44→20:20)
[2025-10-18] MEDS: PLAVIX 75 MG PO (09:44)
[2025-10-18] MEDS: TIMOPTIC 0.5% OPHTHALMIC SOLUTION 1 DROP OPHTH ×2 (09:45→20:20)
[2025-10-18 15:15] VITALS: BP 98/63
[2025-10-18] MEDS: XALATAN OPHTHALMIC SOLUTION 1 DROP BOTH EYES (22:00)
[2025-10-18] MEDS: ROXICODONE 5 MG PO (22:58)
[2025-10-18 23:00] VITALS: BP 106/59
[2025-10-19] VITALS (14 sets, daily range): BP systolic 80–117; BP diastolic 56–76; BMI 26.8; BMI 25.7
[2025-10-19] MEDS: BACTROBAN 2% OINTMENT 1 APPLIC NASAL (06:45)
[2025-10-19] MEDS: PERIDEX 0.12% ORAL RINSE 15 ML PO (06:45)
[2025-10-19] MEDS: VITAMIN D3 (cholecalciferol) 50 MCG PO (08:44)
[2025-10-19] MEDS: LIPITOR 40 MG PO (08:44)
[2025-10-19] MEDS: VITAMIN B-12 1000 MCG PO (08:44)
[2025-10-19] MEDS: ASPIR LOW (ENTERIC COATED) 81 MG PO (08:45)
[2025-10-19] MEDS: HEPARIN 5000 UNITS SC ×2 (08:45→20:07)
[2025-10-19] MEDS: PLAVIX 75 MG PO (08:45)
[2025-10-19] MEDS: TIMOPTIC 0.5% OPHTHALMIC SOLUTION 1 DROP OPHTH ×2 (08:46→20:07)
--- NOTE | 2025-10-19 09:01 | CM ---
CM reviewed chart
Planned for OR today for RLE arterial bypass
Pt resides alone and utilizes a prosthetic for L BKA and attends outpt wound center
CM to follow for post-op needs
Discharge Disposition- anticipate home with [facility] out wound center, follow for VN or higher needs
[2025-10-19 09:37] LABS: Hematocrit 37.1 % (37.0-47.0); Hemoglobin 11.7 g/dL (12.0-16.0); Mean Corp Hgb Conc. 31.5 g/dL (33.0-37.0); Mean Corpuscular Volume 98.1 fL (81.0-99.0); Platelet Count 296 10^3/uL (130-400); Red Cell Dist. Width 13.0 % (11.5-14.5)
[2025-10-19 09:42] LABS: INR 1.05; PT 13.8 Sec (11.4-14.6)
[2025-10-19 09:43] LABS: APTT 26.0 Sec (23.4-35.0)
[2025-10-19 10:22] LABS: Chloride 109 mmol/L (98-107)
[2025-10-19 10:23] LABS: Blood Urea Nitrogen 41 mg/dl (7-17); Calcium 9.2 mg/dl (8.4-10.2); Carbon Dioxide 22 mmol/L (22-30); Estimated Creatinine Clearance 32 ml/min; Glucose 79 mg/dl (70-99); Potassium 4.7 mmol/L (3.5-5.1); Sodium 139 mmol/L (135-145); eGFR 44.64
--- NOTE | 2025-10-19 14:12 | W.SUR.POST ---
Surgical Immediate Post Op
Note
Pre Op Diagnosis: PAD
Post Op Diagnosis: PAD
Procedure Performed: RLE femoral to below knee popliteal artery bypass with 6mm ringed Propaten graft
Primary Surgeon: Paxton
Assist: Ernestina HUMPHRIES
Anesthesia: general
Estimated Blood Loss: 15cc
Fluids: see anesthesia flow sheet
Drains/Shunts: none
Specimens/Cultures: none
Doppler/Duplex/Angio (Y/N): Y
Complications: none
Operative Findings: palpable PT
[2025-10-19 14:44] LABS: Hematocrit 34.9 % (37.0-47.0); Hemoglobin 11.1 g/dL (12.0-16.0); Mean Corp Hgb Conc. 31.8 g/dL (33.0-37.0); Mean Corpuscular Volume 100.0 fL (81.0-99.0); Platelet Count 291 10^3/uL (130-400); Red Cell Dist. Width 13.2 % (11.5-14.5)
[2025-10-19 15:06] LABS: Blood Urea Nitrogen 35 mg/dl (7-17); Calcium 8.7 mg/dl (8.4-10.2); Carbon Dioxide 21 mmol/L (22-30); Chloride 111 mmol/L (98-107); Estimated Creatinine Clearance 35 ml/min; Glucose 128 mg/dl (70-99); Potassium 4.7 mmol/L (3.5-5.1); Sodium 137 mmol/L (135-145); eGFR 49.55
[2025-10-19] MEDS: NSS 1000 IV (15:26)
--- NOTE | 2025-10-19 16:02 | W.PN.CARDCBS ---
Addendum entered and electronically signed by Corey Curran MD 10/19/25 16:43:
I saw and examined the patient.
The MATERNAL CHILD NURSE or PA's note was reviewed and I agree with the note.
Comment: General: Well developed, well nourished in NAD.
Neck: Supple, no JVD, HJR, carotids +2 B/L, no bruits bilaterally.
Heart: Non displaced PMI, RRR, 2/6 basal systolic murmur, No S3, S4, no rubs.
Lungs: Clear to auscultation bilaterally, no wheeze, rhonchi, rubs bilaterally,
normal expiratory phase.
Extremities: No clubbing, cyanosis or edema bilaterally.
Neuro: Grossly nonfocal, awake, alert and oriented x3.
Stable cardiology status post. Losartan on hold due to hypotension. Of note patient has right subclavian stenosis of blood pressure and left arm should be used.
Stable cardiology status for discharge and she will follow-up with Dr. Meraz.
Discussed with family at bedside.
Will sign off, call with questions
Original Note:
Today's Communication / Plan
-
Doing well postop s/p RLE femoral to below knee popliteal artery bypass with 6mm ringed Propaten graft today
Continue gentle IV hydration
Continue aspirin, Plavix, statin
Losartan remains on hold secondary to bradycardia
Impression / Plan
-
Primary Kettle Loader: Dr. Meraz
Assessment:
Nonhealing R ankle wound
RLE angiogram, chronically occluded R SFA, planned for fem pop bypass this admission
s/p RLE femoral to below knee popliteal artery bypass with 6mm ringed Propaten graft 10/19/2025
CAD with UT/Cardiogenic shock/VT arrest d/t critical ostial left main disease
status post 4 mm Husam CAREN to left main with Impella support 09/23/2024
Ischemic cardiomyopathy EF 35%, with improvement 45-50% on repeat echo
Chronic HFrEF
post ORIF L radius 09/20/24 after mechanical fall
bilateral carotid artery stenosis
Right Subclavian steal syndrome
CVA
HTN
PVD h/o stent
LLE BKA
Remote former smoker
ECHO 09/29/2024: Global hypokinesis, EF 45 to 50%, normal pericardium
ECHO 10/16/2025: EF 63%. Normal RV size and systolic function. Mild AI, moderate MR, moderate TR with PAP 33 mmHg
Plan:
- Patient has had nonhealing R ankle wound and presented for RLE angiogram. Found to have chronically occluded R SFA with no endovascular options. s/p RLE femoral to below knee popliteal artery bypass with 6mm ringed Propaten graft 10/19/2025
- Seen post operatively. No cardiac complications intraoperatively and is doing well in sinus rhythm on tele. Getting NSS, otherwise not on any other drips
- Remains chest pain free. No SOB.
- Echo this admission shows preserved ejection fraction and mild to moderate mixed valvular disease.
- Significant cardiology history noted w/ h/o UT and VT arrest resulting in LM stent and Impella support 08/2024. Stable since that time.
- Continues on aspirin and plavix.
- Losartan on hold due to hypotension. Previously on coreg, stopped due to hypotension.
Progress Note - Kettle Loader
Subjective
Date of Service: October 19, 2025
Patient seen and examined postoperatively. Overall she reports she is feeling well, mildly hypotensive getting IV fluids
Objective
Labs:
10/19/25 14:33
10/19/25 14:33
Labs
Hgb 11.1 g/dL (12.0-16.0) L 10/19/25 14:33
Hct 34.9 % (37.0-47.0) L 10/19/25 14:33
Plt Count 291 10^3/uL (130-400) 10/19/25 14:33
PT 13.8 Sec (11.4-14.6) 10/19/25 08:33
INR 1.05 10/19/25 08:33
APTT 26.0 Sec (23.4-35.0) 10/19/25 08:33
Sodium 137 mmol/L (135-145) 10/19/25 14:33
Potassium 4.7 mmol/L (3.5-5.1) 10/19/25 14:33
BUN 35 mg/dl (7-17) H 10/19/25 14:33
Creatinine 1.1 mg/dL (0.6-1.0) H 10/19/25 14:33
Glucose 128 mg/dl (70-99) H 10/19/25 14:33
Vital Signs and I&O:
Vital Signs
Temp Pulse Resp BP Pulse Ox
97.8 F 68 11 102/65 98
10/19/25 15:20 10/19/25 15:45 10/19/25 15:45 10/19/25 15:30 10/19/25 15:45
Vital Signs
Temp Pulse Resp BP Pulse Ox
97.8 F 68 11 102/65 98
10/19/25 15:20 10/19/25 15:45 10/19/25 15:45 10/19/25 15:30 10/19/25 15:45
Intake & Output
10/17/25 10/18/25 10/19/25 10/20/25
06:59 06:59 06:59 06:59
Intake Total 1360 / 1360 800 / 800 2088 100 / 100
Output Total 325 / 325
Balance 1360 / 1360 800 / 800 2088 -225 / -225
Physical Exam
Physical Exam
GEN: No distress, awake, Ox3, lying in bed on oxygen
HEENT: supple, anicteric, mmm
LUNGS: CTA, no wheezes/rales
CV: Reg, S1/S2, 1/6 syst murmur
ABD: soft, BS+, NT/ND
EXT: No edema, clubbing or cyanosis, right lower extremity wrapped in Antonio dressing
NEURO: Gross non-focal
SKIN: No rash
--- NOTE | 2025-10-19 17:28 | PTCARENOTE ---
Follow up assessment, vascular checks and vital sign trends as per orders. Update with chain saw mechanic team. Follow up bedside with cardiology teams. IVF, rojo and input output trends ongoing. Update patient and family at bedside post op plan of cares.
Continue flat in bed and elevation when time. Will follow up po intake/ivf totals. Post op labs and follow up orders.
--- NOTE | 2025-10-19 17:42 | OR.RPT ---
Operative Report
Operative Report
PROCEDURE DATE: 10/19/2025
Preoperative diagnosis: Chronic limb-threatening ischemia right lower extremity.
Postoperative diagnosis: Same
Procedure: Right femoral to below-knee popliteal artery bypass with 6 mm ringed [place] Propaten graft.
Surgeon: Paxton
Metal Trim Erector: DAFNE Do, required for all aspects of procedure including assistance with traction/countertraction, following a suture line, assistance with closure.
Complications: None
Anesthesia: General
Indications for procedure:
Chronic limb-threatening ischemia with tissue loss, nonhealing and pain. Long segment SFA occlusion not amenable to endovascular technique. Risk/benefits/alternatives of bypass were discussed. She had an adequate vein conduit. Therefore
discussed use of prosthetic potentially as well. She understood all wish to proceed.
Description of procedure:
Patient was identified brought to the operating room placed on the table in supine position. After the adequate administration of anesthesia she was prepped and draped in the standard surgical fashion. A standard preoperative timeout was
undertaken and everybody was in agreement the plan. A transverse/oblique incision was made in the right groin that was carried through the skin subcutaneous tissue. The electrocautery was used to carry this through the Riccardo's fascia layer. The
femoral sheath was incised in a vertical fashion with the electrocautery. Note there was scarred tissue likely from a prior percutaneous suture closure that I noted in the deeper tissues right on the anterior wall of the artery. This made the
dissection slightly more challenging. However I was able to dissect cephalad/proximal to that percutaneous suture area where I identified the common femoral artery. It was relatively soft with mild posterior plaque. I carefully circumferentially
dissected and passed a vessel loop around it. I now continued dissection on the common femoral around that area of the percutaneous suture scarred tissue. I then was able to identify the origin of the superficial femoral artery which was carefully
circumferentially dissected and a vessel loop passed around it. This was chronically occluded. I now dissected back to the femoral bifurcation and onto the origin of the profunda. This was also carefully circumferentially dissected and a vessel
loop passed around it. Profunda origin was noted to be relatively soft. There is a little bit of posterior plaque at the femoral bifurcation but the anterior/lateral wall was soft. I now completed dissection of the percutaneous suture scarred
tissue off of the anterior wall of the artery. Now I had mobilized the artery sufficiently.
I now turned my attention to distal exposure. A longitudinal incision was made in the proximal right calf about 1 fingerbreadth inferior to the tibia. This was carried through skin subcutaneous tissue with electrocautery. I then dissected through
the crural fascia layer. The gastrocnemius muscle was reflected posteriorly. Identified the popliteal vein and then reflected that posteriorly and identified the popliteal artery. I carefully dissected away from surrounding structures taking care
to avoid any injury to the surrounding structures, mobilizing a suitable segment of artery. A vessel loop was passed around it proximally and distally. It was noted to be relatively soft although some eccentric calcified soft plaque could be
palpated. Now I created an anatomic tunnel between the 2 arterial exposure sites using a Luke tunneler. Once this was done, I gave the patient 6 as needed's of intravenous heparin.
Once the heparin had circulated, I clamped the profunda with a profunda clamp, and clamped the common femoral artery with a Derra clamp. I did not clamp the SFA as it was chronically occluded. I now made an arteriotomy with an 11 blade on the
anterior wall of the common femoral artery and extended onto the profunda origin with a Suárez scissor. The wall was slightly thickened, but there was no significant stenosis. There was some posterior plaque but again the lumen was not
significantly stenosed. I now used a [place] Propaten 6 mm ringed graft and beveled the proximal on ringed portion and sewed an end to side anastomosis using a Bernard CV 6 suture. I completed and tied down the suture line. Next I backbled the profunda
out the graft. I then reclamped the profunda and forward bled the common femoral artery to flush out the graft. I then clamped the graft. I then restored flow in the profunda but releasing the clamp again. There was good pulsatile flow now in
the common femoral and profunda again. There was good pulsatile flow into the graft. I now passed it through the tunnel taking care to avoid any twisting or kinking.
I now clamped the graft in the proximal field. I reexposed the popliteal artery. An angled clamp was placed in the proximal popliteal artery and distally the artery was clamped with a profunda clamp. An arteriotomy was made with an 11 blade and
extended using a Suárez scissor. There was a little bit of shard like plaque in the arterial wall which was reasonably adherent or cleaned up in the field as needed. No endarterectomy was needed. The lumen was nicely patent. I then removed the
rings after trimming the graft. I then beveled it and sewed an end to side anastomosis to the popliteal artery using a running Bernard CV 6 suture. Prior to completing and tying down my suture line I backbled the [place] arteries, and then flushed out
the graft. I then completed and tied down the suture line. I then released flow in the [place] arteries as well as the graft. There is now excellent pulsatile flow in the popliteal artery proximally and distally to the anastomosis. Doppler
confirmed an excellent significantly graft augmented signal. I could now palpate a posterior tibial pulse of the ankle and confirmed with Doppler a strongly graft augmented signal. At this point is very satisfied. Both incision sites were
irrigated. Meticulous hemostasis was fully achieved. Sites were closed then with layered suture using 2-0 Vicryl, followed by 3-0 Vicryl, followed by 4-0 Monocryl running subcuticular stitch. Dermabond was applied to both sites. Dressings were
applied. The patient tolerated the procedure well. All sponge, needle, instrument counts were correct at the end of the case.
--- NOTE | 2025-10-19 18:29 | PTCARENOTE ---
Dr Matta at bedside with patient and family. Review events, update assessment and continue post op surgical plan of cares. Follow up vascular checks ongoing. Elevate head of bed by nurse. Surgical sites remain clean dry intact. Tolerating small sips
and ice chips. Hourly rounds ongoing.
[2025-10-19] MEDS: XALATAN OPHTHALMIC SOLUTION 1 DROP BOTH EYES (20:10)
[2025-10-19] MEDS: TYLENOL 650 MG PO (20:19)
--- NOTE | 2025-10-19 22:13 | PTCARENOTE ---
Received patient at start of shift. Patient aao x3, QAWALANGIN b/l, hearing aides are on dry pan charger in room. Affect pleasant. At start of shift patient c/o some discomfort to RLE, prn tylenol administered with minimal positive results. Patient confirms pain
is tolerable. NSR to ST on the monitor, positive pulses to RLE, vascular checks continue q1 hour. Lung sounds diminished throughout, pt on ra at start of shift, pox 94-98%, decreasing to low 90's at HS, resumed 2l o2 via n/c. BS active x4, darrel
remains intact and patent. Left wrist and right hand IV sites patent. L radial a-line functioning properly. Call vazquez within reach, bed alarm on. Will continue to monitor patient closely.
--- NOTE | 2025-10-19 23:50 | PTCARENOTE ---
Assessment overall unchanged. Patient awakens to verbal and tactile stimuli. Will continue to monitor patient closely.
[2025-10-20] VITALS (13 sets, daily range): BP systolic 82–155; BP diastolic 51–92; PULSE 67; BMI 25.9
[2025-10-20] MEDS: NSS 1000 IV (03:01)
[2025-10-20 03:47] LABS: Hematocrit 33.2 % (37.0-47.0); Hemoglobin 10.7 g/dL (12.0-16.0); Mean Corp Hgb Conc. 32.2 g/dL (33.0-37.0); Mean Corpuscular Volume 96.2 fL (81.0-99.0); Platelet Count 301 10^3/uL (130-400); Red Cell Dist. Width 13.1 % (11.5-14.5)
[2025-10-20 04:00] LABS: INR 1.05; PT 13.8 Sec (11.4-14.6)
[2025-10-20 04:01] LABS: APTT 26.9 Sec (23.4-35.0)
[2025-10-20 04:11] LABS: Blood Urea Nitrogen 31 mg/dl (7-17); Calcium 8.3 mg/dl (8.4-10.2); Carbon Dioxide 21 mmol/L (22-30); Chloride 110 mmol/L (98-107); Estimated Creatinine Clearance 35 ml/min; Glucose 98 mg/dl (70-99); Magnesium 2.1 mg/dl (1.6-2.3); Potassium 4.7 mmol/L (3.5-5.1); Sodium 136 mmol/L (135-145); eGFR 55.55
--- NOTE | 2025-10-20 04:17 | PTCARENOTE ---
Patient awakens to verbal and tactile stimuli. Affect remains pleasant. Denies pain at this time. Assessment as documented. Call vazquez within reach, will continue to monitor patient closely.
[2025-10-20] MEDS: TYLENOL 650 MG PO ×4 (05:55→21:32)
--- NOTE | 2025-10-20 07:24 | W.PN.VS ---
Addendum entered and electronically signed by Oracio Matta MD 10/20/25 15:13:
Seen and examined. Agree with findings as noted below. Dressings in the groin and calf are clean dry and intact. No hematomas. Foot is warm with palpable pedal pulses weakly. Excellent dopplerable signals. Plan/as discussed and noted below.
Original Note:
Today's Communication / Plan
-
Below plan reviewed with attending.
Assessment/Plan
-
POD #5 diag agram, POD #1 Right femoral to below-knee popliteal artery bypass with 6 mm ringed [place] Propaten graft.
Plan:
Discontinue IV fluids
Discontinue arterial line
Discontinue Villavicencio catheter
Can get out of bed to chair later that this afternoon with assistance, will consult PT given patient's mobility challenges with left BKA
Continue DAPT of aspirin 81 mg p.o. daily and Plavix 75 mg p.o. daily
Continue local wound care to right lower extremity wound
Appreciate cardiology recommendations
Continue neurovascular checks
Subjective Data
-
Date of Service: October 20, 2025
Patient seen examined at bedside, offers no complaints. Endorses well-managed postoperative pain. Denies vomiting, fever, and chills. Tolerating liquid diet currently.
Objective Data
-
Vital Signs
Temp Pulse Resp BP Pulse Ox
98.5 F 62 12 110/70 97
10/20/25 04:09 10/20/25 06:30 10/20/25 06:30 10/20/25 06:00 10/20/25 06:30
Intake and Output
10/19/25 10/20/25 10/21/25
06:59 06:59 06:59
Intake Total 2088 1460 / 1460
Output Total 1380 / 1380
Balance 2088 80 / 80
Intake:
Oral fluids 2088 240 / 240
IV fluids (Total) 1220 / 1220
Normosol 100 / 100
Nss 1,000 ml @ 80 mls/hr IV . 1119
[id number] JAIME Rx#:[id number]
Output:
Urine, Villavicencio 1380 / 1380
Other:
How many times incontinent 1
MODERATE amount urine
Number of approximated SMALL 2
amounts of urine
Number of approximated MODERATE 1 3
amounts of urine
Lab Results
10/20/25 03:15
10/20/25 03:15
Calcium 8.3 mg/dl (8.4-10.2) L 10/20/25 03:15
Phosphorus 4.1 mg/dl (2.5-4.5) 10/20/25 03:15
Magnesium 2.1 mg/dl (1.6-2.3) 10/20/25 03:15
Physical Exam
-
AAOx3
No tachypnea
No tachycardia
Abd soft
Right lower extremity Aquacel groin and calf dressing clean, dry, and intact. Right lower extremity wound dressing clean, dry, and intact, right foot warm, right DP and PT Doppler signal
Villavicencio draining clear yellow urine
[2025-10-20] MEDS: ASPIR LOW (ENTERIC COATED) 81 MG PO (07:39)
[2025-10-20] MEDS: HEPARIN 5000 UNITS SC ×2 (07:40→21:32)
[2025-10-20] MEDS: TIMOPTIC 0.5% OPHTHALMIC SOLUTION 1 DROP OPHTH ×2 (07:40→21:32)
[2025-10-20] MEDS: LIPITOR 40 MG PO (07:40)
[2025-10-20] MEDS: PLAVIX 75 MG PO (07:40)
[2025-10-20] MEDS: VITAMIN D3 (cholecalciferol) 50 MCG PO (07:41)
[2025-10-20] MEDS: ROXICODONE 5 MG PO (07:41)
[2025-10-20] MEDS: VITAMIN B-12 1000 MCG PO (07:41)
--- NOTE | 2025-10-20 12:14 | CON.INTV ---
Consultation
Consultation Request
Date/Time Consultation Requested: 10/20/2025
Date/Time Consultation Performed: 10/20/2025
Requesting Provider: Dr. Matta
Performing Provider: Dr. Jean Morin
Reason for Consultation: Status post Right femoral to below-knee popliteal artery bypass
Medical History
-
History of Present Illness:
85-year-old woman with extensive cardiovascular history and significant peripheral arterial disease, former smoker, left below the knee amputation 2014, admitted due to nonhealing right lower extremity ulcer and leg pain.
After further evaluation by vascular surgery she was deemed candidate for revascularization.
Underwent bypass on 10/19/2025 without complication.
Transferred to the critical care unit for postoperative care.
Patient at this point is doing much better. Sitting out of bed.
Denies any significant pain.
Denies chest pain or palpitations.
Past Medical History
Past Medical History: Other (see list below)
Social History
Tobacco: Former Smoker
Alcohol: None
Drug: None
Family History
Family History: Reviewed & Not Pertinent
Allergies / Home Medications
Allergies
Allergy/AdvReac Type Severity Reaction Status Date / Time
bee venom protein (honey bee) Allergy Swelling Verified 10/15/25 09:48
Iodinated Contrast Media Allergy 'allergic Verified 10/15/25 09:48
reaction,
need
benadryl'
Home Medications
�Medication �Instructions �Recorded �Confirmed �Last Taken �Type
aspirin 81 mg tablet,delayed 81 mg PO DAILY Blood Clot 09/23/24 10/15/25 10/15/25 06:00 History
release Prevention/Tx
atorvastatin 40 mg tablet 40 mg PO DAILY High Cholesterol 09/23/24 10/15/25 10/15/25 06:00 History
cholecalciferol (vitamin D3) 50 50 mcg PO DAILY Supplement 09/23/24 10/15/25 10/14/25 06:00 History
mcg (2,000 unit) tablet
cilostazol 100 mg tablet 100 mg PO BID Blood Clot 09/23/24 10/15/25 10/15/25 06:00 History
Prevention/Tx
epinephrine 0.3 mg/0.3 mL 0.3 mg IM Q5-15M PRN allergic 09/23/24 10/14/25 Unknown History
injection, auto-injector (EpiPen) reaction
latanoprost (PF) 0.005 % eye drops 1 drp ophthalmic (eye) HS Eye 09/23/24 10/15/25 10/14/25 20:00 History
in a dropperette Condition
omega 4-buy-vvx-fish oil 900 1 cap PO DAILY Supplement 09/23/24 10/15/25 10/14/25 06:00 History
mg-1,400 mg capsule,delayed release
timolol maleate (PF) 0.5 % eye 1 drp ophthalmic (eye) Q12H Eye 09/23/24 10/15/25 10/15/25 06:00 History
drops in a dropperette Condition
acetaminophen 325 mg tablet 650 mg (2 x 325 mg) PO Q6HPRN PRN 10/07/24 10/15/25 10/14/25 12:00 Rx
mild pain 30 days #100 tabs
cyanocobalamin (vitamin B-12) 30 mcg (0.03 x 1,000 mcg) PO DAILY 10/07/24 10/15/25 10/14/25 06:00 Rx
1,000 mcg tablet Supplement 30 days #30 tabs
clopidogrel 75 mg tablet (Plavix) 75 mg PO DAILY Blood Clot 10/15/25 10/15/25 10/15/25 06:00 History
Prevention/Tx
losartan 25 mg tablet (Cozaar) 25 mg PO DAILY Blood Pressure 10/15/25 10/15/25 10/15/25 06:00 History
Review of Systems
-
History Source: Patient
All other systems: Negative unless noted
Vitals / Labs / Diagnostic Testing
Vital Signs
Temp Pulse Resp BP Pulse Ox
98.9 F 60 16 100/51 94
10/20/25 08:00 10/20/25 10:00 10/20/25 10:00 10/20/25 10:00 10/20/25 08:00
Lab Data
10/20/25 03:15
10/20/25 03:15
Laboratory Results
10/20/25
03:15
PT 13.8
INR 1.05
APTT 26.9
Diagnostic Testing:
Assessment
-
85-year-old woman with past medical history noted admitted for nonhealing ulcer and right lower extremity pain. Deemed to have significant peripheral vascular disease. After evaluation she was deemed candidate for revascularization. Underwent
right femoral to popliteal artery bypass 10/19/2025.
Critical care team consulted for postoperative care.
Chronic limb-threatening ischemia right lower extremity/nonhealing ulcer ---s/p Right femoral to below-knee popliteal artery bypass with 6 mm ringed [place] Propaten graft--10/20/2025
Conditions present prior admission:
h/o VF arrest s/p shock/CPR 08/2024
Acute NSTEMI s/p LHC and stent, non surgical candidate
L radial fracture s/p ORIF 09/20/24 after mechanical fall
Ischemic cardiomyopathy EF 35%
Bilateral carotid artery stenosis
Right Subclavian steal syndrome
CVA
HTN
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
PVD h/o stent
Former smoker, suspect COPD
Assessment and plan:
Postoperative day 1-doing well.
Sitting out of bed-eating independently.
Continue with analgesia-pain is controlled at this point.
Hemodynamically stable overnight
Continue with neurovascular checks per protocol
-
Patient is hemodynamically stable
Arterial line has been discontinued
Vascular surgery following-correspondence and operative notes reviewed
Continue with right lower extremity wound care.
Renal function improved postoperatively. Creatinine back to baseline.
Continue to monitor
Follow hemoglobin
-Currently
Follow blood sugars
Insulin supplementation as needed
Stable from the cardiac perspective postoperatively.
Continue with current medications without change
DVT prophylaxis
Early nutrition
Early mobilization
--- NOTE | 2025-10-20 12:19 | PTCARENOTE ---
Systems unchanged. Pt up in chair. Pain controlled. Tolerating diet. Yet to void. Daughter at bedside and updated.
--- NOTE | 2025-10-20 13:07 | CM ---
Chart reviewed. Still in ICU
Seen by cardiology and stable
OOB in chair
PT eval pending
--- NOTE | 2025-10-20 13:53 | WOUNDNOTE ---
L 3RD FINGER MEDIAL
--- NOTE | 2025-10-20 13:53 | WOUNDNOTE ---
L 3RD FINGER PLANTAR
--- NOTE | 2025-10-20 13:55 | WOUNDNOTE ---
KIKE RN NOTE: Asked to see patient by nurse Marielena for guidance on L 3rd finger blister. Nurse reports daughter and patient cleaned finger in sink and managed to get pus out of blister. Suspect residual blister will slough off eventually. Applied
Xeroform, gauze and tape. Nurse did wound care on R ankle wound this morning, states he has slough at base of wound, recommended honey gel. Called [facility] for honey gel that can start tomorrow. Nurse aware and will place in room when obtained. Will
update wound care and follow as needed.
[2025-10-20] MEDS: DULCOLAX 10 MG PO (16:55)
--- NOTE | 2025-10-20 17:40 | PTCARENOTE ---
Pt getting up to br to void/attempt bm. Having some difficulty getting up off toilet. Placed commode over toilet for her to aid in getting up. Pt also given oral Dulcolax because she didn't want suppository.
[2025-10-20] MEDS: XALATAN OPHTHALMIC SOLUTION 1 DROP BOTH EYES (21:32)
[2025-10-21] VITALS (7 sets, daily range): BP systolic 134–156; BP diastolic 64–78; BMI 27.0
--- NOTE | 2025-10-21 | PTCARENOTE ---
no changes in pt assessment.
[2025-10-21] MEDS: TYLENOL 650 MG PO ×2 (04:22→08:15)
--- NOTE | 2025-10-21 04:35 | PTCARENOTE ---
no changes in pt assessment.
[2025-10-21 04:36] LABS: Hematocrit 32.6 % (37.0-47.0); Hemoglobin 10.5 g/dL (12.0-16.0); Mean Corp Hgb Conc. 32.2 g/dL (33.0-37.0); Mean Corpuscular Volume 96.7 fL (81.0-99.0); Platelet Count 278 10^3/uL (130-400); Red Cell Dist. Width 13.1 % (11.5-14.5)
[2025-10-21 05:02] LABS: Blood Urea Nitrogen 32 mg/dl (7-17); Calcium 8.7 mg/dl (8.4-10.2); Carbon Dioxide 20 mmol/L (22-30); Chloride 114 mmol/L (98-107); Estimated Creatinine Clearance 35 ml/min; Glucose 98 mg/dl (70-99); Potassium 4.4 mmol/L (3.5-5.1); Sodium 139 mmol/L (135-145); eGFR 49.55
--- NOTE | 2025-10-21 08:02 | W.PN.VS ---
Addendum entered and electronically signed by Nithin Villavicencio III, MD 10/21/25 08:23:
This patient was seen and examined in collaboration with KRISTEL Cuellar. I agree with the history and physical exam as well as the assessment and plan.
Signed:
Nithin Villavicencio III, MD
Vascular Surgery
[facility]
Original Note:
Today's Communication / Plan
-
Seen and assessed with Dr. Villavicencio
Assessment/Plan
-
POD #5 diag agram, POD #2 Right femoral to below-knee popliteal artery bypass with 6 mm ringed [place] Propaten graft.
Plan:
Physical therapy/out of bed as able
Continue DAPT of aspirin 81 mg p.o. daily and Plavix 75 mg p.o. daily
Continue local wound care to right lower extremity wound
Appreciate cardiology recommendations
Possible DC later today
Subjective Data
-
Date of Service: October 21, 2025
Patient seen at bedside this a.m. with Dr. Villavicencio. Patient offers no complaints at this time. No events overnight.
Objective Data
-
Vital Signs
Temp Pulse Resp BP Pulse Ox
98.2 F 67 12 134/68 92
10/21/25 03:32 10/21/25 06:00 10/21/25 06:00 10/21/25 06:00 10/21/25 06:00
Intake and Output
10/20/25 10/21/25 10/22/25
06:59 06:59 06:59
Intake Total 1460 / 1980 1160 / 1160
Output Total 1380 / 1480 100 / 100
Balance 80 / 500 1060 / 1060
Intake:
Oral fluids 240 / 720 1120 / 1120
IV fluids (Total) 1220 / 1260 40 / 40
Normosol 100 / 100
Nss 1,000 ml @ 80 mls/hr IV . 1120 / 1160 40 / 40
[id number] [facility] Rx#:[id number]
Output:
Urine, Villavicencio 1380 / 1480 100 / 100
Other:
Number of approximated SMALL 1
amounts of urine
Number of approximated MODERATE 3 2
amounts of urine
Number of approximated LARGE 2
amounts of urine
Lab Results
10/21/25 04:13
10/21/25 04:13
Calcium 8.7 mg/dl (8.4-10.2) 10/21/25 04:13
Phosphorus 4.1 mg/dl (2.5-4.5) 10/20/25 03:15
Magnesium 2.1 mg/dl (1.6-2.3) 10/20/25 03:15
Physical Exam
-
AAOx3
No tachypnea
No tachycardia
Abd soft
Right lower extremity Aquacel removed, incisional sites clean, dry, and intact. Right lower extremity wound dressing clean, dry, and intact, right foot warm, right DP and PT Doppler signal
[2025-10-21] MEDS: LIPITOR 40 MG PO (08:15)
[2025-10-21] MEDS: PLAVIX 75 MG PO (08:16)
[2025-10-21] MEDS: TIMOPTIC 0.5% OPHTHALMIC SOLUTION 1 DROP OPHTH (08:16)
[2025-10-21] MEDS: VITAMIN D3 (cholecalciferol) 50 MCG PO (08:16)
[2025-10-21] MEDS: ASPIR LOW (ENTERIC COATED) 81 MG PO (08:16)
[2025-10-21] MEDS: HEPARIN 5000 UNITS SC (08:16)
[2025-10-21] MEDS: VITAMIN B-12 1000 MCG PO (08:16)
--- NOTE | 2025-10-21 08:36 | PTCARENOTE ---
pt aaox3. states pain in right leg tylenol given. right leg dressing c/d/i. pulses bu doppler.
--- NOTE | 2025-10-21 11:42 | W.PN.INTV ---
Today's Communication / Plan
Recommendations
Continue postoperative care
Hopefully discharge planning later today
Sign off
Assessment
-
85-year-old woman with past medical history noted admitted for nonhealing ulcer and right lower extremity pain. Deemed to have significant peripheral vascular disease. After evaluation she was deemed candidate for revascularization. Underwent
right femoral to popliteal artery bypass 10/19/2025.
Critical care team consulted for postoperative care.
Chronic limb-threatening ischemia right lower extremity/nonhealing ulcer ---s/p Right femoral to below-knee popliteal artery bypass with 6 mm ringed [place] Propaten graft--10/20/2025
Conditions present prior admission:
h/o VF arrest s/p shock/CPR 08/2024
Acute NSTEMI s/p LHC and stent, non surgical candidate
L radial fracture s/p ORIF 09/20/24 after mechanical fall
Ischemic cardiomyopathy EF 35%
Bilateral carotid artery stenosis
Right Subclavian steal syndrome
CVA
HTN
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
PVD h/o stent
Former smoker, suspect COPD
Assessment and plan:
Postoperative day 2-doing well.
Sitting out of bed-eating independently.
Continue with analgesia-pain is controlled.
Hemodynamically stable overnight
Continue with neurovascular checks per protocol
-
Patient is hemodynamically stable
Vascular surgery following-correspondence and operative notes reviewed
Continue with right lower extremity wound care.
Renal function improved postoperatively.
Creatinine back to baseline.
Continue to monitor
Follow hemoglobin
-Currently stable.
Follow blood sugars
Insulin supplementation as needed
Stable from the cardiac perspective postoperatively.
Continue with current medications without change
Possibly discharge planning later today
No additional critical care needs
If stays in the hospital can transfer to [facility].
Subjective Dataa
Subjective Data
Date of Service:
Date of Service: October 21, 2025
Chief Complaint: [employer] Follow Up (Status post right femoral below the knee popliteal artery bypass)
Subjective:
Patient offers no new complaints.
Pain is controlled.
Remained hemodynamically stable overnight.
Review of Systems
General: Fever (n)
Cardiopulmonary: Dyspnea (n)
GI: Abdominal Pain (n) and Nausea (n)
Objective Data
Data Reviewed
Vital Signs / I&O / Oxygen:
Vital Signs
Temp Pulse Resp BP Pulse Ox
98.3 F 67 13 150/69 96
10/21/25 08:36 10/21/25 10:00 10/21/25 10:00 10/21/25 10:00 10/21/25 08:36
Intake and Output
10/20/25 10/21/25 10/22/25
06:59 06:59 06:59
Intake Total 1460 / 1980 1160 / 1160
Output Total 1380 / 1480 100 / 100
Balance 80 / 500 1060 / 1060
SaO2 96
Nasal Cannula flow liters per 2
minute
Physical Exam
General: Comfortable
HEENT: Normocephalic
Cardiovascular: S1-S2
Respiratory: Non-Labored Respirations
GI: Soft and Non Distended
Neurology: Awake and Alert
Skin: Other (INDRA SMITH 2014-has a prosthesis.)
Labs/Micro/Reports
Lab Data
10/21/25 04:13
10/21/25 04:13
--- NOTE | 2025-10-21 12:01 | W.[place]-PDMP ---
[place]PD[place]
-
Checked the [place]- Pres[place] Drug Monitoring Program website, no red flags identified; safe to proceed with prescription.
--- NOTE | 2025-10-21 12:01 | W.DS.TRANS ---
DC Summary - C[employer]
-
Discharge Instructions:
Sleep Apnea Risk Intermediate
Discharge Diagnosis/Procedures Severe peripheral arterial disease with tissue
loss right ankle, nonhealing wound
Procedure 10/15/2025
Aortogram and pelvic angiogram. Right lower
extremity arteriogram.
Procedure 10/19/2025
Right femoral to below-knee popliteal artery
bypass with 6 mm ringed [place] Propaten graft
Diet As tolerated
Activity No strenuous activity
Driving Restrictions No driving
Bathing Restrictions OK to Shower
Other Services VN
Instructions:
Stand-Alone Forms: Vascular Surg Discharge Instr
Changes to Home Medications: Yes
Discharge Medications:
DC Medications w/original date entered in [place]
aspirin 81 mg tablet,delayed release 81 mg PO DAILY Blood Clot Prevention/Tx 09/23/24
atorvastatin 40 mg tablet 40 mg PO DAILY High Cholesterol 09/23/24
cholecalciferol (vitamin D3) 50 mcg (2,000 unit) tablet 50 mcg PO DAILY Supplement 09/23/24
cilostazol 100 mg tablet 100 mg PO BID Blood Clot Prevention/Tx 09/23/24
epinephrine 0.3 mg/0.3 mL injection, auto-injector (EpiPen) 0.3 mg IM Q5-15M PRN allergic reaction 09/23/24
latanoprost (PF) 0.005 % eye drops in a dropperette 1 drp ophthalmic (eye) HS Eye Condition 09/23/24
omega 5-hsg-ftu-fish oil 900 mg-1,400 mg capsule,delayed release 1 cap PO DAILY Supplement 09/23/24
timolol maleate (PF) 0.5 % eye drops in a dropperette 1 drp ophthalmic (eye) Q12H Eye Condition 09/23/24
acetaminophen 325 mg tablet 650 mg (2 x 325 mg) PO Q6HPRN PRN mild pain 30 days #100 tabs 10/07/24
cyanocobalamin (vitamin B-12) 1,000 mcg tablet 30 mcg (0.03 x 1,000 mcg) PO DAILY Supplement 30 days #30 tabs 10/07/24
clopidogrel 75 mg tablet (Plavix) 75 mg PO DAILY Blood Clot Prevention/Tx 10/15/25
losartan 25 mg tablet (Cozaar) 25 mg PO DAILY Blood Pressure 10/15/25
oxycodone 5 mg tablet 5 mg PO Q4HPRN PRN moderate pain #10 tabs 10/21/25
Home Medication Changes
Added:
oxycodone 5 mg tablet 5 mg PO Q4HPRN PRN moderate pain #10 tabs 10/21/25
Pending Results: No
--- NOTE | 2025-10-21 12:43 | CM ---
Chart reviewed. Consult received for home care PT
Spoke with dtr Didi and pt Mago at ICU bedside
Mago lives in [facility] alone but her family will be staying with her for a week or longer
Pt has all her DME at home
Pt plans to go to wound care center in weekly with dtr
Offered HH services ; options [facility], [facility] or [facility]
Pt and dtr declined HHC services stating that they have all her DME and her house is set up for her
CM encouraged pt/dtr to call if they change their minds.
DC today and dtr Didi will drive her home and stay with her
--- NOTE | 2025-10-21 13:10 | CM ---
ISRAEL reviewed with melinda Tolbert over the phone. Pt and dtr both in agreement with discharge at this time
== END 2025-10-21 13:35 | disposition home or self-care (01) | DRG 253 ==
LOC: ICU 14:00
PROVIDERS: Nurse Practitioner; ADMITTING PHYSICIAN Surgery Vascular Surgery; CONSULT PHYSICIAN Internal Medicine Cardiovascular Disease; CONSULT PHYSICIAN Internal Medicine Critical Care Medicine; PRIMARYCARE PHYSICIAN Family Medicine
PROC: B41C1ZZ Fluoroscopy of Pelvic Arteries using Low Osmolar Contrast (ICD-10-PCS; 2025-10-15)
PROC: B41D1ZZ Fluoroscopy of Aorta and Bilateral Lower Extremity Arteries using Low Osmolar Contrast (ICD-10-PCS; 2025-10-15)
PROC: 041K0JL Bypass Right Femoral Artery to Popliteal Artery with Synthetic Substitute, Open Approach (ICD-10-PCS; 2025-10-19)
DX: I70.233 Atherosclerosis of native arteries of right leg with ulceration of ankle (principal); I50.22 Chronic systolic (congestive) heart failure; I70.92 Chronic total occlusion of artery of the extremities; L97.312 Non-pressure chronic ulcer of right ankle with fat layer exposed; I25.10 Atherosclerotic heart disease of native coronary artery without angina pectoris; I65.23 Occlusion and stenosis of bilateral carotid arteries; I11.0 Hypertensive heart disease with heart failure; I25.5 Ischemic cardiomyopathy; I25.2 Old myocardial infarction; Z79.02 Long term (current) use of antithrombotics/antiplatelets; Z79.82 Long term (current) use of aspirin; Z79.899 Other long term (current) drug therapy; Z86.73 Personal history of transient ischemic attack (TIA), and cerebral infarction without residual deficits; Z86.74 Personal history of sudden cardiac arrest; Z87.891 Personal history of nicotine dependence; Z89.512 Acquired absence of left leg below knee
CPT/HCPCS: 35656; 36247; 75625; 75635; 75710; 80048; 83735; 84100; 85027; 85610; 85730; 86850; 86900; 86901; 93005; 93306; 93970; 97162; 97166; C1768; C1769; C1887; C1894; Q9967

== ENCOUNTER 2025-10-27 08:34 | Outpatient (REF) | payer OTHER, SELFPAY | END 2025-10-27 23:59 | disposition home or self-care (01) | LOC: WOUND 08:34 | PROVIDERS: ATTENDING PHYSICIAN Registered Nurse; FAMILY PHYSICIAN Family Medicine | DX: L97.312 Non-pressure chronic ulcer of right ankle with fat layer exposed (principal); I77.9 Disorder of arteries and arterioles, unspecified; N18.30 Chronic kidney disease, stage 3 unspecified; R73.9 Hyperglycemia, unspecified | CPT/HCPCS: 99214 ==